=== PATIENT | male | born 1955 | race Caucasian/White ===

== ENCOUNTER 2016-12-18 16:32 | Emergency (ER) | payer OTHER ==
--- NOTE | 2016-12-18 17:45 | C.PDOC ---
History Of Present Illness Patient is a 61 y/o male, whose PMHx includes HTN, and diabetes, that presents to the ED for evaluation of generalized weakness, body aches, and feels bloated for the last 4-5 days. Pt states he has not had a bowel movement for the last 4- 5 days. Patient reports having similar symptoms in the past. Otherwise, denies any nausea, vomiting, abdominal pain, change in appetite, fever, chills, or any other associated symptoms at this time. Denies any sick contact. Time Seen by Provider: 12/18/16 17:31 Chief Complaint (Nursing): Abdominal Pain History Per: Patient History/Exam Limitations: no limitations Onset/Duration Of Symptoms: Days (5) Current Symptoms Are (Timing): Still Present Severity: None Pain Scale Rating Of: 0 Radiation Of Pain To:: None Quality Of Discomfort: Gas Associated Symptoms: Constipation. denies: Fever, Chills, Nausea, Vomiting, Diarrhea, Loss Of Appetite, Back Pain, Chest Pain, Urinary Symptoms Exacerbating Factors: None Alleviating Factors: None Recent travel outside of the [place]: No Additional History Per: Patient Past Medical History Reviewed: Historical Data, Nursing Documentation, Vital Signs Vital Signs: Last Vital Signs Temp 98.2 F 12/18/16 16:47 Pulse 68 12/18/16 18:55 Resp 18 12/18/16 18:55 BP 120/70 12/18/16 18:55 Pulse Ox 99 12/18/16 18:55 - Medical History PMH: Denies: Chronic Kidney Disease Surgical History: CABG Family History: States: Unknown Family Hx - Social History Hx Alcohol Use: No Hx Substance Use: No - Immunization History Hx Tetanus Toxoid Vaccination: No Hx Influenza Vaccination: No Hx Pneumococcal Vaccination: No Review Of Systems Except As Marked, All Systems Reviewed And Found Negative. Constitutional: Positive for: Weakness, Other (body aches). Negative for: Fever , Chills Cardiovascular: Negative for: Chest Pain, Palpitations Respiratory: Negative for: Cough, Shortness of Breath Gastrointestinal: Positive for: Constipation, Other (feels bloated). Negative for: Nausea, Vomiting, Abdominal Pain, Diarrhea Genitourinary: Negative for: Dysuria, Frequency, Hematuria Musculoskeletal: Negative for: Back Pain Physical Exam - Physical Exam Appears: Non-toxic, No Acute Distress Skin: Normal Color, Warm, Dry Head: Atraumatic, Normacephalic Eye(s): bilateral: Normal Inspection, EOMI Neck: Normal ROM, Supple Chest: Symmetrical, No Tenderness Cardiovascular: Rhythm Regular, No Murmur Respiratory: Normal Breath Sounds, No Rales, No Rhonchi, No Wheezing Gastrointestinal/Abdominal: Normal Exam, Soft, No Tenderness, No Guarding, No Rebound Extremity: Normal ROM, No Deformity Neurological/Psych: Oriented x3, Normal Speech, Normal Cognition ED Course And Treatment - Laboratory Results Result Diagrams: 12/18/16 17:56 12/18/16 17:56 Lab Interpretation: No Acute Changes O2 Sat by Pulse Oximetry: 98 (on RA) Pulse Ox Interpretation: Normal - Other Rad Obstructive series X-Ray: Viewed By Me, Read By Radiologist Interpretation: No evidence of obstruction. Large amount of stool in colon and rectum. Progress Note: Labs, obstructive series x-ray, ordered and reviewed. Patient treated with a Fleets enema. Reevaluation Time: 20:08 Reassessment Condition: Improved (Good results after the fleeets enema. Patient much more comfortable.) Disposition Counseled Patient/Family Regarding: Studies Performed, Diagnosis, Need For Followup - Disposition Referrals: Molly Weir MD [Medical Doctor] - Disposition: HOME/ ROUTINE Disposition Time: 20:09 Condition: IMPROVED Instructions: Constipation (ED), High Fiber Diet (ED) - Clinical Impression Clinical Impression: Constipation - Scribe Statement The provider has reviewed the documentation as recorded by the Scribe Gabino Weir All medical record entries made by the Scribe were at my direction and personally dictated by me. I have reviewed the chart and agree that the record accurately reflects my personal performance of the history, physical exam, medical decision making, and the department course for this patient. I have also personally directed, reviewed, and agree with the discharge instructions and disposition.
--- NOTE | 2016-12-18 17:49 | RAD ---
PROCEDURE: Radiographs of the chest and abdomen (obstructive series) HISTORY: Abdominal pain COMPARISON: No prior. TECHNIQUE: AP radiograph of the chest, with upright and supine radiographs of the abdomen. FINDINGS: CHEST: Lungs: Clear. Cardiovascular: Normal size heart. No pulmonary vascular congestion. Pleura: No pleural fluid. No pneumothorax. Other findings: None. ABDOMEN AND PELVIS: Bowel: There is large amount of stool in the colon and rectum. There is no evidence of bowel dilatation or obstruction. Free air: None. Bones: Unremarkable. Other findings: None. IMPRESSION: Constipation. No evidence of bowel obstruction. Clear lungs.
[2016-12-18 18:07] LABS: BASO # 0.1 K/uL (0.0-0.2); BASO % 0.6 % (0.0-2.0); EOS # 0.6 K/uL (0.0-0.7); EOS % 6.2 % (0.0-4.0); HEMOGLOBIN 14.6 g/dL (12.0-18.0); LYMPH # 3.3 K/uL (1.0-4.3); LYMPH % 36.5 % (20.0-40.0); MEAN CELL VOLUME 79.7 fL (80.0-94.0); MEAN CORPUSCULAR HGB CONC 32.7 g/dL (33.0-37.0); MEAN PLATELET VOLUME 7.7 fL (7.2-11.7); MONO # 0.7 K/uL (0.0-0.8); MONO % 8.2 % (0.0-10.0); NEUT # 4.3 K/uL (1.8-7.0); NEUT % 48.5 % (50.0-75.0); RBC 5.61 Mil/uL (4.40-5.90); RED CELL DISTRIBUTION WIDTH 13.2 % (11.5-14.5); WHITE BLOOD COUNT 8.9 K/uL (4.8-10.8)
[2016-12-18 18:10] LABS: ALBUMIN 4.3 g/dL (3.5-5.0)
[2016-12-18 18:13] LABS: ALB/GLOB RATIO 1.1 (1.0-2.1); AST/SGOT 21 U/L (17-59); BLOOD UREA NITROGEN 16 mg/dL (9-20); GFR AFRICAN-AMERICAN > 60; GFR NON-AFRICAN AMERICAN > 60
[2016-12-18 18:14] LABS: ALT/SGPT 28 U/L (21-72); CALCIUM 9.4 mg/dl (8.6-10.4); LIPASE 150 U/L (23-300)
[2016-12-18 18:21] LABS: SQUAMOUS EPITHIAL < 1 /hpf (0-5); URINE BILIRUBIN NEGATIVE (NEGATIVE); URINE BLOOD NEGATIVE (NEGATIVE); URINE CLARITY Clear (Clear); URINE COLOR Yellow (YELLOW); URINE GLUCOSE (UA) 3+ mg/dL (Normal); URINE LEUKOCYTE ESTERASE NEG Leu/uL (Negative); URINE NITRATE NEGATIVE (NEGATIVE); URINE PROTEIN NEGATIVE (NEGATIVE); URINE UROBILINOGEN NORMAL mg/dL (0.2-1.0)
[2016-12-18 18:55] VITALS: RESP 18
[2016-12-18 20:09] VITALS: O2SAT 98
[2016-12-18 20:13] VITALS: BP 127/73; PULSE 71; TEMP 97.6
== END 2016-12-18 20:30 | disposition home or self-care (01) ==
LOC: C.ER 16:32
DX: K59.00 Constipation, unspecified (principal)

== ENCOUNTER 2018-05-12 18:42 | Inpatient (IN) | payer SELFPAY ==
--- NOTE | 2018-05-12 21:19 | C.PDOC ---
History Of Present Illness 62 year old male with PMHx of diabetes and HLD presents to the ED complaining of cellulitis to the right groin for one week and flatulence. Denies any drainage, fever, chills, abdominal pain, shortness of breath, nausea, vomiting, diarrhea. Reports he has been taking Advil every 4 hours with minimal relief. Time Seen by Provider: 05/12/18 21:17 Chief Complaint (Nursing): Abnormal Skin Integrity History Per: Patient History/Exam Limitations: no limitations Onset/Duration Of Symptoms: Days Current Symptoms Are (Timing): Still Present Quality Of Symptoms: Painful, Swollen. denies: Draining Past Medical History Reviewed: Historical Data, Nursing Documentation, Vital Signs Vital Signs: Last Vital Signs Temp 99.9 F H 05/12/18 18:59 Pulse 109 H 05/12/18 18:59 Resp 18 05/12/18 18:59 BP 133/70 05/12/18 18:59 Pulse Ox 97 05/12/18 18:59 - Medical History PMH: Diabetes, Hyperlipidemia Denies: Chronic Kidney Disease Surgical History: CABG Family History: States: No Known Family Hx - Social History Hx Alcohol Use: No Hx Substance Use: No - Immunization History Hx Tetanus Toxoid Vaccination: No Hx Influenza Vaccination: No Hx Pneumococcal Vaccination: No Review Of Systems Constitutional: Negative for: Fever, Chills Cardiovascular: Negative for: Chest Pain Respiratory: Negative for: Shortness of Breath Gastrointestinal: Negative for: Nausea, Vomiting, Abdominal Pain, Diarrhea Genitourinary: Negative for: Dysuria Musculoskeletal: Negative for: Back Pain Skin: Positive for: Other (cellulitis to the right groin ) Physical Exam - Physical Exam Appears: Non-toxic, No Acute Distress Skin: Warm, Dry, No Rash Head: Normacephalic Eye(s): bilateral: Normal Inspection, PERRL, EOMI Nose: Normal Oral Mucosa: Moist Neck: Supple, Other (no meningeal signs) Chest: Symmetrical Cardiovascular: Rhythm Regular Respiratory: Normal Breath Sounds, No Rales, No Rhonchi, No Wheezing Gastrointestinal/Abdominal: Soft, No Tenderness Back: Normal Inspection, No CVA Tenderness Male Genital: Other ([id number] area of induration and cellulitis to the right groin/inguinal region no fluctuance or crepitus) Extremity: Normal ROM, No Tenderness Extremity: Bilateral: Atraumatic, Normal Color And Temperature, Normal ROM Pulses: Left Dorsalis Pedis: Normal, Right Dorsalis Pedis: Normal Neurological/Psych: Oriented x3, Normal Speech, Normal Cognition, No Cerebellar Signs, Normal Motor Gait: Steady ED Course And Treatment - Laboratory Results Result Diagrams: 05/14/18 05:47 05/14/18 05:47 O2 Sat by Pulse Oximetry: 97 (RA) Pulse Ox Interpretation: Normal Medical Decision Making Medical Decision Makin yr old male w/ hx of HTN, CAD on plavix p/w right groin pain. Cellulitic appearing R groin. No fluctuance. Induration noted. No crepitus. No penile pain or scrotal pain. No perineum rash or pain. Cellulitis region overlaying R groin large vessels. No distal or upgoing cellulitis noted. Plan - Bloodwork - Cleocin IVPB - Blood culture 1035 abx ordered appreciate consult w/ Dr. Rivera (IM): we are to call a code sepsis for internal medicine, and pt to be admitted to his service. Code sepsis called per admitting attnd Seen by Septic Team: fluids ordered Non hypotensive at this time. Pt notes that he is burping significantly more than normal and is requesting gas x. He denies any chest pain. 1107 Pt notes sob but no leg swelling, rales heard on exam fluids d/merari EK, Sinus tachy, no stemi no STEMI Per Dr. Veloz (CARDS) troponin elevated: Heparin started: ASA ordered. Pt denies any bloody stools or trauma / falls. likely gas pain as chest pain w/ NSTEMI. Dr. Weir- ICU bedside BIPAP ordered. to be admitted to his service Pt remains on bipap, improved respiratory status. He is agreeable to admission Disposition - Disposition Disposition: HOSPITALIZED Disposition Time: 22:35 Condition: CRITICAL - Clinical Impression Clinical Impression: Cellulitis, NSTEMI (non-ST elevated myocardial infarction) - Scribe Statement The provider has reviewed the documentation as recorded by the Felibertoibhortensia Rollins All medical record entries made by the Scribe were at my direction and personally dictated by me. I have reviewed the chart and agree that the record accurately reflects my personal performance of the history, physical exam, medical decision making, and the department course for this patient. I have also personally directed, reviewed, and agree with the discharge instructions and disposition.
[2018-05-12 21:59] LABS: BASO # 0.1 K/uL (0.0-0.2); BASO % 0.4 % (0.0-2.0); EOS # 0.1 K/uL (0.0-0.7); EOS % 0.4 % (0.0-4.0); HEMOGLOBIN 13.2 g/dL (12.0-18.0); LYMPH # 1.6 K/uL (1.0-4.3); LYMPH % 10.9 % (20.0-40.0); MEAN CELL VOLUME 80.6 fL (80.0-94.0); MEAN CORPUSCULAR HEMOGLOBIN 26.6 pg (27.0-31.0); MONO # 1.4 K/uL (0.0-0.8); MONO % 9.2 % (0.0-10.0); NEUT % 79.1 % (50.0-75.0); RBC 4.97 Mil/uL (4.40-5.90); RED CELL DISTRIBUTION WIDTH 13.1 % (11.5-14.5); WHITE BLOOD COUNT 15.1 K/uL (4.8-10.8)
[2018-05-12] MEDS ORDERED: Simethicone 80 mg Chewtab PO ONE (22:12)
[2018-05-12 22:18] LABS: ALB/GLOB RATIO 1.2 (1.0-2.1); ALBUMIN 4.1 g/dL (3.5-5.0); ALT/SGPT 26 U/L (21-72); AST/SGOT 34 U/L (17-59); BLOOD UREA NITROGEN 19 mg/dL (9-20); CALCIUM 9.3 mg/dl (8.6-10.4); GFR NON-AFRICAN AMERICAN > 60
[2018-05-12] MEDS ORDERED: Sodium Chloride 0.9% 1,000 ML IV ONE ×3 (22:27→22:31)
[2018-05-12] MEDS ORDERED: Lactated Ringer's 1,000 ML IV ONE (22:29)
[2018-05-12] MEDS ORDERED: Sodium Chloride 0.9% 500 ML IV ONE (22:31)
[2018-05-12] MEDS ORDERED: Albuterol-Ipratrop 3 mg / 0.5 (3 ml) UD INH STA (22:43)
[2018-05-12] MEDS ORDERED: Sodium Chloride 0.9% 2,000 ML ONE (22:43)
[2018-05-12] MEDS ORDERED: Heparin25000 units/250ml 1/2NS 25,000 UNITS/250 ML BAG IV ONE (22:47)
[2018-05-12] MEDS ORDERED: Vancomycin 1 GM 1 GM/250 ML BAG IVPB ONE (22:54)
[2018-05-12] MEDS ORDERED: Albuterol-Ipratrop 3 mg / 0.5 (3 ml) UD ONE (22:55)
[2018-05-12] MEDS ORDERED: NITROGLYCERIN 0.3 MG/HR TD STA (23:13)
[2018-05-12] MEDS ORDERED: cefTRIAXone IV 1 gm in Dextros 50 ML IVPB ONE (23:23)
[2018-05-12] MEDS ORDERED: Digoxin 500 mcg/2ml (0.5 mg/2ml) Inj IVP ONE (23:27)
[2018-05-12] MEDS ORDERED: Nitroglycerin 2% Ointment Foilpak UD TOP STA (23:27)
[2018-05-12] MEDS ORDERED: Verapamil 2 ML ONE ×3 (23:28→23:52)
[2018-05-12] MEDS ORDERED: Digoxin 500 mcg/2ml (0.5 mg/2ml) Inj ONE (23:30)
--- NOTE | 2018-05-12 23:42 | CP.PCM.CON ---
History of Present Illness - History of Present Illness History of Present Illness: 62 y/o female with pmx of DM, CAD presents to [facility] with c/o right inguinal swelling. Patient (+)fevers. After ~600 ml of IVF patient developed new onset SOB, tachycardia. Patient denies any chest pain. Pmx: DM, CAd Psug hx: PCI Social history: smoking, denies illicit drug use Review of Systems - Review of Systems Systems not reviewed;Unavailable: Unstable Vital Signs Past Patient History - Infectious Disease Hx of Infectious Diseases: None - Tetanus Immunizations Tetanus Immunization: Unknown - Past Medical History & Family History Past Medical History?: Yes - Past Social History Smoking Status: Light Smoker < 10 Cigarettes Daily - CARDIAC Hx Cardiac Disorders: Yes Hx Hypotension: Yes Other/Comment: cardiac bypass - PULMONARY Hx Respiratory Disorders: No - NEUROLOGICAL Hx Neurological Disorder: No - HEENT Hx HEENT Problems: Yes Other/Comment: left eye blurry - RENAL Hx Chronic Kidney Disease: No - ENDOCRINE/METABOLIC Hx Endocrine Disorders: Yes Hx Diabetes Mellitus Type 2: Yes - HEMATOLOGICAL/ONCOLOGICAL Hx Blood Disorders: No - INTEGUMENTARY Hx Dermatological Problems: No - MUSCULOSKELETAL/RHEUMATOLOGICAL Hx Musculoskeletal Disorders: No Hx Falls: No - GASTROINTESTINAL Hx Gastrointestinal Disorders: Yes Hx Constipation: Yes - GENITOURINARY/GYNECOLOGICAL Hx Genitourinary Disorders: No - PSYCHIATRIC Hx Substance Use: No - SURGICAL HISTORY Hx Coronary Artery Bypass Graft: Yes - ANESTHESIA Hx Anesthesia: No Hx Anesthesia Reactions: No Hx Malignant Hyperthermia: No Meds Allergies/Adverse Reactions: Allergies Allergy/AdvReac Type Severity Reaction Status Date / Time No Known Allergies Allergy Verified 05/12/18 19:02 - Medications Medications: Current Medications Aspirin (Aspirin Supp) 300 mg FL DAILY [facility] Aspirin (Aspirin Chewable) 81 mg PO DAILY [facility] Clopidogrel Bisulfate (Plavix) 300 mg PO STAT STA Stop: 05/12/18 23:35 Clopidogrel Bisulfate (Plavix) 75 mg PO DAILY [facility] Clindamycin Phosphate 600 mg/ (Sodium Chloride) 54 mls @ 100 mls/hr IVPB Q6H [facility]; Protocol Last Admin: 05/12/18 22:00 Dose: 100 mls/hr Vancomycin HCl 1 gm/ Sodium (Chloride) 250 mls @ 166.7 mls/hr IVPB STAT STA; Protocol Stop: 05/12/18 23:58 Heparin Sodium/Sodium Chloride (Heparin 03789 Units/250ml 1/2 Normal Saline) 25,000 units in 250 mls @ 7.2 mls/hr IV .Q24H PRN; Protocol PRN Reason: ADJUST RATE PER PROTOCOL Ceftriaxone Sodium 2 gm/ (Sodium Chloride) 100 mls @ 100 mls/hr IVPB DAILY JOSE R; Protocol Rosuvastatin Calcium (Crestor) 20 mg PO HS JOSE R Physical Exam - Head Exam Head Exam: ATRAUMATIC, NORMAL INSPECTION, NORMOCEPHALIC - Eye Exam Eye Exam: EOMI - ENT Exam ENT Exam: Mucous Membranes Dry - Neck Exam Additional comments: no JVD - Respiratory Exam Respiratory Exam: Accessory Muscle Use, Rales, Rhonchi - Cardiovascular Exam Cardiovascular Exam: REGULAR RHYTHM, +S1, +S2, Systolic Murmur - GI/Abdominal Exam GI & Abdominal Exam: Normal Bowel Sounds, Soft - Exam Additional comments: Right inguinal area (+)induration - Neurological Exam Neurological exam: Alert, CN II-XII Intact, Oriented x3 - Skin Skin Exam: Warm Results - Vital Signs Recent Vital Signs: Last Vital Signs Temp 99.9 F H 05/12/18 18:59 Pulse 109 H 05/12/18 18:59 Resp 18 05/12/18 18:59 BP 133/70 05/12/18 18:59 Pulse Ox 97 05/12/18 23:12 - Labs Result Diagrams: 05/12/18 21:54 05/13/18 01:57 Labs: Laboratory Results - last 24 hr 05/12/18 05/12/18 05/12/18 21:54 21:54 23:12 WBC 15.1 H D RBC 4.97 Hgb 13.2 Hct 40.1 MCV 80.6 MCH 26.6 L MCHC 33.0 RDW 13.1 Plt Count 305 MPV 8.0 Neut % (Auto) 79.1 H Lymph % (Auto) 10.9 L [place] % (Auto) 9.2 Eos % (Auto) 0.4 Baso % (Auto) 0.4 Neut # (Auto) 12.0 H Lymph # (Auto) 1.6 [place] # (Auto) 1.4 H Eos # (Auto) 0.1 Baso # (Auto) 0.1 Sodium 132 Potassium 4.1 Chloride 92 L Carbon Dioxide 22 Anion Gap 23 H BUN 19 Creatinine 0.6 L Est GFR ( Amer) > 60 Est GFR (Non-Af Amer) > 60 Random Glucose 439 H* D Lactic Acid 1.6 Calcium 9.3 Total Bilirubin 1.0 AST 34 ALT 26 Alkaline Phosphatase 90 Troponin I 1.2200 H* Total Protein 7.6 Albumin 4.1 Globulin 3.5 Albumin/Globulin Ratio 1.2 Assessment & Plan - Assessment and Plan (Free Text) Assessment: -New onset NSTEMI: with likely acute mitral valve regurgitation, and low EF, urgently placed on bi-pap, nitro and lasix pushed, Patient's JVD low, bedside echo revealed poor EF, (+)mitral regurg, consult Cardiology -NSTEMI: load with asa + plavix, verapmil (wheezing) and statin + IV heparin, urgent cardilogy input and formal echo -Hypoxic respiratory failure: continue bi-pap, h/o smoking, COPD, start solumedrol -Anion gap metabolic acidosis: check lactic and beta hydroxy butyrate -dka: start insulin ggt, continue BGM q1hrs -uncontrolled BGM: check HBa1c, ISS aspart, accucheck q4hrs -right groin swelling: suspect is abcess, obtain CT pelvis, surgery input, start vanco + ceftriaxone, serial lactic, source control with surgery input after CT chest -DVT ppx IV heparin -PUD ppx protonix -NPO -multiple diagnostic tests pending cc time 45 minutes - Date & Time Date: 05/13/18 Time: 00:07
[2018-05-12] MEDS ORDERED: Metoprolol 1 mg/ml Inj IVP SCH (23:45)
[2018-05-12] MEDS ORDERED: Nitroglycerin 50mg in D5W 50 MG/250 ML BOTTLE IV SCH (23:45)
[2018-05-12] MEDS ORDERED: Nitroglycerin 2% Ointment Foilpak UD TOP ONE ×2 (23:50→23:53)
[2018-05-12] MEDS: Magnesium Sulfate 1 gm in D5W 1 GM/100 ML BAG IVPB SCH (23:55)
[2018-05-12] MEDS ORDERED: Nitroglycerin 50mg in D5W 50 MG/250 ML BOTTLE IV ONE (23:59)
[2018-05-13 00:07] LABS: ABG ALLEN TEST POS; ARTERIAL BLOOD GAS PCO2 33 mm/Hg (35-45); ARTERIAL BLOOD GAS PH 7.28 (7.35-7.45); ARTERIAL BLOOD GAS PO2 159 mm/Hg (80-100); ARTERIAL BLOOD GAS TCO2 16.5 mmol/L (22-28)
--- NOTE | 2018-05-13 00:12 | PCM.SEPTIC ---
Sepsis Progress Note - Reassessment Type Date of Evaluation: 05/13/18 Time of Evaluation: 00:10 Reassessment Type: Non-invasive reassessment - Non Invasive Reassessment Were the most recent vital sign reviewed: Yes Vital Sign (Latest): Temp Pulse Resp BP Pulse Ox 99.9 F H 109 H 18 133/70 97 05/12/18 18:59 05/12/18 18:59 05/12/18 18:59 05/12/18 18:59 05/12/18 23:12 Cardiovascular: Yes: Tachycardia Respiratory: Yes: Accessory Muscle Use, Respiratory Distress Capillary Refill: Normal (Less than 2 sec) Skin: Normal Color, Dry - Invasive Reassessment (complete 2 of 4) Was a Central Venous Pressure Measurement obtained within 6 Hours after the presentation of septic shock: No Was a central venous oxygen measurement obtained within 6 hours after the presentation of septic shock: No Was a bedside cardiovascular ultrasound performed within 6 hours after the presentation of septic shock: Yes Type performed: Echocardiogram Was a passive leg raise performed or was a fluid challenge performed within 6 hrs of the initial fluid bolus: No
[2018-05-13] MEDS ORDERED: (Novolin R) Insulin Human Regular 100 units/ml vial IVP STA (00:21)
[2018-05-13] MEDS ORDERED: (Novolin R) Insulin Human Regular 100 units/ml vial ONE (00:21)
[2018-05-13] MEDS: Magnesium Sulfate 1 gm in D5W 1 GM/100 ML BAG IVPB SCH (00:23)
[2018-05-13] MEDS: Heparin25000 units/250ml 1/2NS 25,000 UNITS/250 ML BAG IV PRN (00:23)
[2018-05-13] MEDS ORDERED: Magnesium Sulfate 1 gm in D5W 1 GM/100 ML BAG IVPB ONE (00:26)
--- NOTE | 2018-05-13 00:49 | CP.PCM.HP ---
<Rekha Watters - Last Filed: 05/13/18 00:51> History of Present Illness - History of Present Illness History of Present Illness: PGY-1 H&P for Rivera[employer] service CC: groin pain HPI: Patient is a 62 yo male w/ PMH CABG, DM, and hyperlipidemia presents to emergency department for one weeks worth of right groin pain. Patient states he has been taken Advil every four hours with no relief. Patient states he has not been taking medications for his diabetes and hyperlipidemia but gave no reason why he stopped other than the pain in his leg. Patient states this has happened in the past on the left groin. Patient describes the pain as a burning pain, constant, and non-radiating. Patient states that he has felt feverish with cough nonproductive but did not check his temperature. During evaluation patient started become more tachypneic and had an episode of vomiting. Patient was coughing during the interview so much that the ED attending started a breathing treatment. Patient became very diaphoretic during the interview requiring ICU consult because there was a concern for AR. Patient started to complain of feeling short of breath, impending doom, continuous cough, feeling nauseous, and very sweaty. Patient climbed off stretcher although told not to and laid on the floor. Patient was encouraged to get back on stretcher but did not until he was assisted. Patient was started on bipap because there of concern of pulmonary edema. Patient admits to cough, fevers, chills, chest discomfort shortness of breath, n/v, lightheadedness, and flatulence. Patient denies constipation/diarrhea, headaches, radiating pain, and dysuria. PMH- CABG, DM, HLD PSH- CABG FH- DM (dad and brother), HTN Social- 8-10 cigs/day, denies alcohol and drug use Meds- Lopressor 50mg po daily, Glyburide/Metformin 1 tab po daily, Enalapril 10mg po daily, Plavix 75mg po daily, Lipitor 10mg po daily, Aspirin 81mg po daily All- NKDA PMD- Dr. Weir Code- Full code Present on Admission - Present on Admission Any Indicators Present on Admission: Yes Review of Systems - Review of Systems Review of Systems: 12 point ROS obtained and noted as in HPI Past Patient History - Infectious Disease Hx of Infectious Diseases: None - Tetanus Immunizations Tetanus Immunization: Unknown - Past Medical History & Family History Past Medical History?: Yes - Past Social History Smoking Status: Light Smoker < 10 Cigarettes Daily - CARDIAC Hx Cardiac Disorders: Yes Hx Hypotension: Yes Other/Comment: cardiac bypass - PULMONARY Hx Respiratory Disorders: No - NEUROLOGICAL Hx Neurological Disorder: No - HEENT Hx HEENT Problems: Yes Other/Comment: left eye blurry - RENAL Hx Chronic Kidney Disease: No - ENDOCRINE/METABOLIC Hx Endocrine Disorders: Yes Hx Diabetes Mellitus Type 2: Yes - HEMATOLOGICAL/ONCOLOGICAL Hx Blood Disorders: No - INTEGUMENTARY Hx Dermatological Problems: No - MUSCULOSKELETAL/RHEUMATOLOGICAL Hx Musculoskeletal Disorders: No Hx Falls: No - GASTROINTESTINAL Hx Gastrointestinal Disorders: Yes Hx Constipation: Yes - GENITOURINARY/GYNECOLOGICAL Hx Genitourinary Disorders: No - PSYCHIATRIC Hx Substance Use: No - SURGICAL HISTORY Hx Coronary Artery Bypass Graft: Yes - ANESTHESIA Hx Anesthesia: No Hx Anesthesia Reactions: No Hx Malignant Hyperthermia: No Meds Allergies/Adverse Reactions: Allergies Allergy/AdvReac Type Severity Reaction Status Date / Time No Known Allergies Allergy Verified 05/12/18 19:02 Physical Exam - Constitutional Appears: In Acute Distress - Head Exam Head Exam: NORMAL INSPECTION, NORMOCEPHALIC - Eye Exam Eye Exam: EOMI, Normal appearance. absent: Nystagmus, Scleral icterus - ENT Exam ENT Exam: Mucous Membranes Dry - Respiratory Exam Respiratory Exam: Rales, Wheezes, Respiratory Distress. absent: Chest Wall Tenderness, Clear to Auscultation Bilateral, Rhonchi, NORMAL BREATHING PATTERN - Cardiovascular Exam Cardiovascular Exam: Tachycardia, +S1, +S2. absent: Systolic Murmur - GI/Abdominal Exam GI & Abdominal Exam: Normal Bowel Sounds, Soft. absent: Distended, Firm, Guarding, Tenderness - Exam Additional comments: Cellulitis near groin region with skin peeling off No oozing draining or pus noted; Of note it did seem fluctuant - Extremities Exam Extremities exam: Positive for: normal inspection. Negative for: calf tenderness, pedal edema - Neurological Exam Neurological exam: Alert, Oriented x3 - Psychiatric Exam Psychiatric exam: Anxious - Skin Skin Exam: Dry, Intact, Normal Color Results - Vital Signs Recent Vital Signs: Last Vital Signs Temp 99.9 F H 05/12/18 18:59 Pulse 106 H 05/13/18 00:01 Resp 29 H 05/13/18 00:01 BP 130/64 05/13/18 00:01 Pulse Ox 98 05/13/18 00:01 - Labs Result Diagrams: 05/12/18 21:54 05/12/18 21:54 Labs: Laboratory Results - last 24 hr 05/12/18 05/12/18 05/12/18 14:27 21:54 21:54 WBC 15.1 H D RBC 4.97 Hgb 13.2 Hct 40.1 MCV 80.6 MCH 26.6 L MCHC 33.0 RDW 13.1 Plt Count 305 MPV 8.0 Neut % (Auto) 79.1 H Lymph % (Auto) 10.9 L [place] % (Auto) 9.2 Eos % (Auto) 0.4 Baso % (Auto) 0.4 Neut # (Auto) 12.0 H Lymph # (Auto) 1.6 [place] # (Auto) 1.4 H Eos # (Auto) 0.1 Baso # (Auto) 0.1 Puncture Site Rr pCO2 33 L pO2 159 H HCO3 17.0 L ABG pH 7.28 L ABG Total CO2 16.5 L ABG O2 Saturation 95.0 ABG Base Excess -10.2 L Karthik Test Pos ABG Potassium 3.2 L A-a O2 Difference 156.0 Respiratory Index 1.0 Sodium 133.0 132 Chloride 96.0 L 92 L Glucose 590 H* Lactate 2.9 H Vent Mode Bipap FiO2 50.0 Inspiratory BiPAP 18 Expiratory BiPAP 10 Crit Value Called To Denisse call rn Crit Value Called By Keya paving block cutter Crit Value Read Back Y Blood Gas Notified Time 6 Potassium 4.1 Carbon Dioxide 22 Anion Gap 23 H BUN 19 Creatinine 0.6 L Est GFR ( Amer) > 60 Est GFR (Non-Af Amer) > 60 POC Glucose (mg/dL) Random Glucose 439 H* D Lactic Acid Calcium 9.3 Total Bilirubin 1.0 AST 34 ALT 26 Alkaline Phosphatase 90 Troponin I 1.2200 H* Total Protein 7.6 Albumin 4.1 Globulin 3.5 Albumin/Globulin Ratio 1.2 Arterial Blood Potassium 3.2 L 05/12/18 05/13/18 23:12 00:20 WBC RBC Hgb Hct MCV MCH MCHC RDW Plt Count MPV Neut % (Auto) Lymph % (Auto) [place] % (Auto) Eos % (Auto) Baso % (Auto) Neut # (Auto) Lymph # (Auto) [place] # (Auto) Eos # (Auto) Baso # (Auto) Puncture Site pCO2 pO2 HCO3 ABG pH ABG Total CO2 ABG O2 Saturation ABG Base Excess Karthik Test ABG Potassium A-a O2 Difference Respiratory Index Sodium Chloride Glucose Lactate Vent Mode FiO2 Inspiratory BiPAP Expiratory BiPAP Crit Value Called To Crit Value Called By Crit Value Read Back Blood Gas Notified Time Potassium Carbon Dioxide Anion Gap BUN Creatinine Est GFR ( Amer) Est GFR (Non-Af Amer) POC Glucose (mg/dL) 489 H* Random Glucose Lactic Acid 1.6 Calcium Total Bilirubin AST ALT Alkaline Phosphatase Troponin I Total Protein Albumin Globulin Albumin/Globulin Ratio Arterial Blood Potassium Assessment & Plan - Assessment and Plan (Free Text) Assessment: Patient is a 62 yo male with PMH of CABG, DM and HLD presents for 1 week of groin pain. Patient began to decompensate during interview and transferred to ICU for concerns of NSTEMI with elevated troponins. Plan: Sepsis Likely 2/2 to Cellulitis; Lactate 2.9; ABG shows non-anion gap metabolic acidosis Patient was started on Bipap when he began to decompensate Clindamycin and Vancomycin intitally was started but switched to Clinda/C eftriaxone Fluid bolus was given and maintenance fluids but was stopped due to patient becoming increasingly short of breath Will require imaging of cellulitis once patient more stable; Consider surgery consult for I&D BCX pending; Wound Cx pending Febrile, Tachycardia, Leukocytosis noted on admission Shortness of Breath EKG- NSTEMI with sinus tachycardia Cxray- pulmonary edema Troponin- 1.2 BHAVIN x 3 pending Cardiology Consulted- Dr. Veloz- NSTEMI ICU Consulted- Dr. Weir- transfer to ICU with recs below Aspirin 300mg rectally; Aspirin 81mg po daily Plavix x 1 300mg dose; Plavix 75 mg po daily Patient was put on Bipap; Given 1 x dose of lasix 40mg IVP Heparin loading dose of 3600 units; Heparin drip with transfer to ICU; Nitrodrip in ICU; Nitropaste was given and stopped for afterload and preload reduction Digoxin 0.5mg IVP once; Verpamil 2.5mg IVP x 1 for elevated heart rate; Lopressor 5mg IVP q6h Crestor 20mg po hs kinza BNP pending DM - uncontrolled Patient noncompliance with home meds A1C pending Fluids administered but stopped; Novolin 10 units ISS sc q4h PPX DVT ppx: Heparin 5000 units sc q8h GI ppx: Protonix 40mg po NPO diet <Gino Rivera - Last Filed: 05/13/18 06:15> Results - Vital Signs Recent Vital Signs: Last Vital Signs Temp 99.0 F 05/13/18 02:21 Pulse 100 H 05/13/18 06:10 Resp 18 05/13/18 02:21 BP 125/70 05/13/18 02:21 Pulse Ox 99 05/13/18 02:21 - Labs Result Diagrams: 05/12/18 21:54 05/13/18 01:57 Labs: Laboratory Results - last 24 hr 05/12/18 05/12/18 05/12/18 14:27 21:54 21:54 WBC 15.1 H D RBC 4.97 Hgb 13.2 Hct 40.1 MCV 80.6 MCH 26.6 L MCHC 33.0 RDW 13.1 Plt Count 305 MPV 8.0 Neut % (Auto) 79.1 H Lymph % (Auto) 10.9 L [place] % (Auto) 9.2 Eos % (Auto) 0.4 Baso % (Auto) 0.4 Neut # (Auto) 12.0 H Lymph # (Auto) 1.6 [place] # (Auto) 1.4 H Eos # (Auto) 0.1 Baso # (Auto) 0.1 PT INR APTT Puncture Site Rr pCO2 33 L pO2 159 H HCO3 17.0 L ABG pH 7.28 L ABG Total CO2 16.5 L ABG O2 Saturation 95.0 ABG Base Excess -10.2 L Karthik Test Pos ABG Potassium 3.2 L A-a O2 Difference 156.0 Respiratory Index 1.0 Sodium 133.0 132 Chloride 96.0 L 92 L Glucose 590 H* Lactate 2.9 H Vent Mode Bipap FiO2 50.0 Inspiratory BiPAP 18 Expiratory BiPAP 10 Crit Value Called To Denisse call rn Crit Value Called By Keya paving block cutter Crit Value Read Back Y Blood Gas Notified Time 6 Potassium 4.1 Carbon Dioxide 22 Anion Gap 23 H BUN 19 Creatinine 0.6 L Est GFR ( Amer) > 60 Est GFR (Non-Af Amer) > 60 POC Glucose (mg/dL) Random Glucose 439 H* D Lactic Acid Calcium 9.3 Phosphorus Magnesium Total Bilirubin 1.0 AST 34 ALT 26 Alkaline Phosphatase 90 Total Creatine Kinase CK-MB (Mass) Troponin I 1.2200 H* NT-Pro-B Natriuret Pep Total Protein 7.6 Albumin 4.1 Globulin 3.5 Albumin/Globulin Ratio 1.2 TSH 3rd Generation Arterial Blood Potassium 3.2 L B-Hydroxybutyrate 05/12/18 05/13/18 05/13/18 23:12 00:20 00:44 WBC RBC Hgb Hct MCV MCH MCHC RDW Plt Count MPV Neut % (Auto) Lymph % (Auto) [place] % (Auto) Eos % (Auto) Baso % (Auto) Neut # (Auto) Lymph # (Auto) [place] # (Auto) Eos # (Auto) Baso # (Auto) PT INR APTT Puncture Site pCO2 pO2 HCO3 ABG pH ABG Total CO2 ABG O2 Saturation ABG Base Excess Karthik Test ABG Potassium A-a O2 Difference Respiratory Index Sodium Chloride Glucose Lactate Vent Mode FiO2 Inspiratory BiPAP Expiratory BiPAP Crit Value Called To Crit Value Called By Crit Value Read Back Blood Gas Notified Time Potassium Carbon Dioxide Anion Gap BUN Creatinine Est GFR ( Amer) Est GFR (Non-Af Amer) POC Glucose (mg/dL) 489 H* Random Glucose Lactic Acid 1.6 Calcium Phosphorus Magnesium Total Bilirubin AST ALT Alkaline Phosphatase Total Creatine Kinase 151 CK-MB (Mass) 2.76 Troponin I 1.1200 H* NT-Pro-B Natriuret Pep 1910 H Total Protein Albumin Globulin Albumin/Globulin Ratio TSH 3rd Generation 0.76 Arterial Blood Potassium B-Hydroxybutyrate 05/13/18 05/13/18 05/13/18 01:57 01:58 02:18 WBC RBC Hgb Hct MCV MCH MCHC RDW Plt Count MPV Neut % (Auto) Lymph % (Auto) [place] % (Auto) Eos % (Auto) Baso % (Auto) Neut # (Auto) Lymph # (Auto) [place] # (Auto) Eos # (Auto) Baso # (Auto) PT 12.8 H INR 1.2 APTT 30 Puncture Site pCO2 pO2 HCO3 ABG pH ABG Total CO2 ABG O2 Saturation ABG Base Excess Karthik Test ABG Potassium A-a O2 Difference Respiratory Index Sodium 133 Chloride 98 Glucose Lactate Vent Mode FiO2 Inspiratory BiPAP Expiratory BiPAP Crit Value Called To Crit Value Called By Crit Value Read Back Blood Gas Notified Time Potassium 3.4 L Carbon Dioxide 20 L Anion Gap 18 BUN 17 Creatinine 0.7 L Est GFR ( Amer) > 60 Est GFR (Non-Af Amer) > 60 POC Glucose (mg/dL) 333 H Random Glucose 412 H* Lactic Acid Calcium 8.0 L Phosphorus 2.7 Magnesium 2.6 H Total Bilirubin 0.6 AST 47 ALT 28 Alkaline Phosphatase 100 Total Creatine Kinase CK-MB (Mass) Troponin I NT-Pro-B Natriuret Pep Total Protein 6.7 Albumin 3.7 Globulin 3.0 Albumin/Globulin Ratio 1.2 TSH 3rd Generation Arterial Blood Potassium B-Hydroxybutyrate 3.34 H 05/13/18 05/13/18 02:37 04:55 WBC RBC Hgb Hct MCV MCH MCHC RDW Plt Count MPV Neut % (Auto) Lymph % (Auto) [place] % (Auto) Eos % (Auto) Baso % (Auto) Neut # (Auto) Lymph # (Auto) [place] # (Auto) Eos # (Auto) Baso # (Auto) PT INR APTT Puncture Site pCO2 pO2 HCO3 ABG pH ABG Total CO2 ABG O2 Saturation ABG Base Excess Karthik Test ABG Potassium A-a O2 Difference Respiratory Index Sodium Chloride Glucose Lactate Vent Mode FiO2 Inspiratory BiPAP Expiratory BiPAP Crit Value Called To Crit Value Called By Crit Value Read Back Blood Gas Notified Time Potassium Carbon Dioxide Anion Gap BUN Creatinine Est GFR ( Amer) Est GFR (Non-Af Amer) POC Glucose (mg/dL) 142 H Random Glucose Lactic Acid 1.6 Calcium Phosphorus Magnesium Total Bilirubin AST ALT Alkaline Phosphatase Total Creatine Kinase CK-MB (Mass) Troponin I NT-Pro-B Natriuret Pep Total Protein Albumin Globulin Albumin/Globulin Ratio TSH 3rd Generation Arterial Blood Potassium B-Hydroxybutyrate Assessment & Plan - Date & Time Date: 05/13/18 (I have seen and examined the patient. I agree with the findings and plan of care as documented by Dr. Watters. Patient with sepsis. Uncontrolled diabetes. Rocephin and Clinda. NSTEMI. Cardio Consult. History of CHF. IVF initially given but stopped due to heart failure with fluid retention. Contine Plavix. Aspirin. ROMIx3 with EKG. Admit to ICU for close monitoring and further management. ) Time: 06:12 Attending/Attestation - Attestation I have personally seen and examined this patient.: Yes I have fully participated in the care of the patient.: Yes I have reviewed all pertinent clinical information: Yes
[2018-05-13 01:13] LABS: CK-MB 2.76 ng/mL (0.0-3.38)
[2018-05-13 01:15] VITALS: PULSE 143
[2018-05-13 01:35] LABS: TROPONIN I 1.12 ng/mL (0.00-0.120)
[2018-05-13] MEDS ORDERED: (Novolog) Insulin Aspart, Recombinant 100 u/ml 10 ml vial SC SCH (01:45)
[2018-05-13 02:05] LABS: INR 1.2; PROTHROMBIN TIME 12.8 SECONDS (9.7-12.2)
[2018-05-13 02:19] LABS: ALB/GLOB RATIO 1.2 (1.0-2.1); ALBUMIN 3.7 g/dL (3.5-5.0); ALT/SGPT 28 U/L (21-72); AST/SGOT 47 U/L (17-59); BLOOD UREA NITROGEN 17 mg/dL (9-20); GFR NON-AFRICAN AMERICAN > 60
[2018-05-13] MEDS ORDERED: Insulin Human Regular 100 UNIT in Sodium Chloride 0.9% 99 ML SC SCH (03:00)
[2018-05-13] MEDS ORDERED: Insulin Human Regular 100 UNIT in Sodium Chloride 0.9% 99 ML IV SCH (03:00)
[2018-05-13 08:17] LABS: BASO % 0.1 % (0.0-2.0); HEMOGLOBIN 11.3 g/dL (12.0-18.0); MEAN CELL VOLUME 79.4 fL (80.0-94.0); MEAN CORPUSCULAR HEMOGLOBIN 26.5 pg (27.0-31.0); MEAN CORPUSCULAR HGB CONC 33.4 g/dL (33.0-37.0); MEAN PLATELET VOLUME 7.9 fL (7.2-11.7); MONO # 1.7 K/uL (0.0-0.8); MONO % 10.2 % (0.0-10.0); NEUT # 13.1 K/uL (1.8-7.0); NEUT % 77.7 % (50.0-75.0); RBC 4.27 Mil/uL (4.40-5.90); RED CELL DISTRIBUTION WIDTH 13.2 % (11.5-14.5); URINE BILIRUBIN NEGATIVE (NEGATIVE); URINE BLOOD 1+ (NEGATIVE); URINE CLARITY Clear (Clear); URINE COLOR Straw (YELLOW); URINE GLUCOSE (UA) 3+ mg/dL (Normal); URINE LEUKOCYTE ESTERASE NEG Leu/uL (Negative); URINE PROTEIN NEGATIVE (NEGATIVE); URINE UROBILINOGEN NORMAL mg/dL (0.2-1.0); WHITE BLOOD COUNT 16.8 K/uL (4.8-10.8)
[2018-05-13 08:33] LABS: ALBUMIN 3.1 g/dL (3.5-5.0); ALT/SGPT 29 U/L (21-72); AST/SGOT 73 U/L (17-59); BLOOD UREA NITROGEN 19 mg/dL (9-20); CALCIUM 8.1 mg/dl (8.6-10.4); GFR NON-AFRICAN AMERICAN > 60
[2018-05-13 08:39] LABS: CK-MB 22.5 ng/mL (0.0-3.38)
[2018-05-13 08:46] LABS: BARBITURATES, UR NEGATIVE (NEGATIVE); BENZODIAZEPINES, UR NEGATIVE (NEGATIVE); OPIATES, UR NEGATIVE (NEGATIVE); PHENCYCLIDINE, UR NEGATIVE (NEGATIVE)
--- NOTE | 2018-05-13 09:50 | CP.PCM.PN ---
Subjective - Date & Time of Evaluation Date of Evaluation: 05/13/18 Time of Evaluation: 09:50 - Subjective Subjective: Patient came for groin pain and infection On BIPAP this morning. His shortness of breath is better,patient states that he was having on and off epigastric pain going to his chest.He thought its due to gas.Denies nausea,no vomting no sob,Denies sob on exercion Objective - Vital Signs/Intake and Output Vital Signs (last 24 hours): Temp Pulse Resp BP Pulse Ox 99.0 F 85 21 125/70 100 05/13/18 02:21 05/13/18 07:42 05/13/18 03:30 05/13/18 02:21 05/13/18 03:30 Intake and Output: 05/13/18 05/13/18 06:59 18:59 Intake Total 6.25 Balance 6.25 - Medications Medications: Current Medications Aspirin (Aspirin Chewable) 81 mg PO DAILY [facility] Clopidogrel Bisulfate (Plavix) 75 mg PO DAILY [facility] Clindamycin Phosphate 600 mg/ (Sodium Chloride) 54 mls @ 100 mls/hr IVPB Q6H JOSE R; Protocol Last Admin: 05/13/18 04:56 Dose: 100 mls/hr Heparin Sodium/Sodium Chloride (Heparin 23260 Units/250ml 1/2 Normal Saline) 25,000 units in 250 mls @ 7.2 mls/hr IV .Q24H PRN; Protocol PRN Reason: ADJUST RATE PER PROTOCOL Last Admin: 05/13/18 00:23 Dose: 12 units/kg/hr, 7.2 mls/hr Ceftriaxone Sodium 2 gm/ (Sodium Chloride) 100 mls @ 100 mls/hr IVPB DAILY [facility]; Protocol Nitroglycerin/Dextrose (Nitroglycerin 50 Mg/250 Ml D5w) 50 mg in 250 mls @ 1.5 mls/hr IV .Q24H JOSE R; Protocol Last Admin: 05/13/18 00:01 Dose: 5 mcg/min, 1.5 mls/hr Insulin Human Regular 100 unit (/ Sodium Chloride) 100 mls @ 6 mls/hr IV .Q12N18D JOSE R; Protocol Last Titration: 05/13/18 04:59 Dose: 0 unit/kg/hr, 0 mls/hr Insulin Human Regular (Novolin R) 0 unit SC ACHS JOSE R; Protocol Metoprolol Tartrate (Lopressor) 25 mg PO BID [facility] Pantoprazole Sodium (Protonix Inj) 40 mg IVP Q12H [facility] Last Admin: 05/13/18 01:15 Dose: 40 mg Rosuvastatin Calcium (Crestor) 20 mg PO HS [facility] Last Admin: 05/13/18 01:40 Dose: 20 mg - Labs Labs: 05/13/18 08:10 PT 12.8 SECONDS (9.7-12.2) H 05/13/18 01:58 INR 1.2 05/13/18 01:58 APTT 33 SECONDS (21-34) 05/13/18 08:10 - Constitutional Appears: No Acute Distress - Head Exam Head Exam: NORMAL INSPECTION - Eye Exam Eye Exam: Normal appearance - ENT Exam ENT Exam: Mucous Membranes Moist - Neck Exam Neck Exam: Full ROM - Respiratory Exam Respiratory Exam: Rales (bilateral rales lower to mid chest). absent: NORMAL BREATHING PATTERN - Cardiovascular Exam Cardiovascular Exam: REGULAR RHYTHM - GI/Abdominal Exam GI & Abdominal Exam: Soft, Normal Bowel Sounds - Extremities Exam Extremities Exam: Full ROM - Back Exam Back Exam: NORMAL INSPECTION - Neurological Exam Neurological Exam: Awake, Oriented x3 - Psychiatric Exam Psychiatric exam: Normal Mood - Skin Skin Exam: Dry, Erythema (right groin abscess,lynphadenitis and cellulitis) Assessment and Plan - Assessment and Plan (Free Text) Plan: 1.NSTMI,pulmonary edema History of CABG Last night EKG shows ST depresion in lateral leads,this morning troponin went up to 11. 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 Sepsis and Groin infection/abscess and lymphadenitis Dr Packer's recommendation appreciated Conitnue zosyn and vancomycin Surgery consult for I&D Patient is sob with pulmonary edema.Hold fluids BCX pending; Wound Cx pending 3. DKA and DM - uncontrolled DM Patient noncompliance with home meds A1C 12 DKA resolved,start on insulin as per DR Mcmahan consult Dr Mcmahan PPX DVT ppx: Heparin GI ppx: Protonix 40mg po
[2018-05-13] MEDS ORDERED: cefTRIAXone 2 GM in Sodium Chloride 0.9% 100 ML IVPB SCH (10:00)
[2018-05-13] MEDS ORDERED: Potassium Chloride 20 mEq ER Tab PO ONE (10:27)
[2018-05-13] MEDS ORDERED: (Novolin R) Insulin Human Regular 100 units/ml vial SC SCH (11:30)
--- NOTE | 2018-05-13 11:46 | CT ---
Date of service: 05/13/2018 PROCEDURE: CT Abdomen and Pelvis without intravenous contrast HISTORY: evaluate right inguinal area COMPARISON: None. TECHNIQUE: Without contrast.. Contrast dose: 0 Radiation dose: Total exam DLP = 212.89 mGy-cm. This CT exam was performed using one or more of the following dose reduction techniques: Automated exposure control, adjustment of the mA and/or kV according to patient size, and/or use of iterative reconstruction technique. FINDINGS: LOWER THORAX: Small bilateral pleural effusion. Mild alveolar opacity in the posterior aspect both lower lobes which may reflect pneumonia or subsegmental atelectasis. LIVER: Unremarkable. No gross lesion or ductal dilatation. GALLBLADDER AND BILE DUCTS: Unremarkable. PANCREAS: Unremarkable. No gross lesion or ductal dilatation. SPLEEN: Unremarkable. ADRENALS: Unremarkable. No mass. KIDNEYS AND URETERS: Nonspecific 10 mm right upper pole renal cortical mass, low-density, likely cyst. Too small to characterize. No other renal mass. No renal calculus or hydronephrosis. VASCULATURE: Unremarkable. No aortic aneurysm. There is atherosclerotic calcification of the abdominal aorta. BOWEL: Unremarkable. No obstruction. No gross mural thickening. APPENDIX: Unremarkable. Normal appendix. PERITONEUM: No ascites. No pneumoperitoneum. Please note that there is no evidence of inguinal hernia. In the right inguinal region, there is evidence of cutaneous thickening and stranding in the subcutaneous fat suggestive of cellulitis. There are also some ill-defined rounded low-density structures, somewhat confluent, possibly lymph nodes. Atypical in appearance. Also, the possibility of small abscesses should be considered. LYMPH NODES: No retroperitoneal or pelvic lymphadenopathy. BLADDER: Unremarkable. REPRODUCTIVE: Normal prostate BONES: No acute fracture. OTHER FINDINGS: None. IMPRESSION: No evidence of inguinal hernia. Right inguinal cellulitis and vaguely confluent ill-defined subcutaneous masses which may represent lymph nodes or small abscesses. Very small bilateral pleural effusion with minimal bilateral lower lobe alveolar opacity representing possibly pneumonia or subsegmental atelectasis. No other acute abnormality. The preliminary findings for this examination were reported by [facility] Radiology at 4:22 a.m. on 05/13/2018.. There is concurrence of this report with the preliminary findings.
[2018-05-13] MEDS ORDERED: (Lantus) Insulin Glargine, Recombinant SC ONE (12:00)
--- NOTE | 2018-05-13 12:49 | CP.PCM.CON ---
History of Present Illness - History of Present Illness History of Present Illness: 62 yo male rain h/o CAD, s/p CABG 13 years ago at [facility] [place]; T2D;HTN;HLD; current smoker, presented with right groin pain. States started as small wound, became more swollen, red and painful. Denies chest pain, palpitations, diaphoresis, d izziness, fever or chills. Admits to baseline dyspnea with 2 blocks. Used to follow with cardio, but stopped bc lack of insurance. Cardiology evaluation called bc NSTEMI Smokes 8-10 cigs per day Review of Systems - Review of Systems Review of Systems: all others are negative except HPI Past Patient History - Infectious Disease Hx of Infectious Diseases: None - Tetanus Immunizations Tetanus Immunization: Unknown - Past Medical History & Family History Past Medical History?: Yes - Past Social History Smoking Status: Light Smoker < 10 Cigarettes Daily - CARDIAC Hx Cardiac Disorders: Yes Hx Hypotension: Yes Other/Comment: cardiac bypass - PULMONARY Hx Respiratory Disorders: No - NEUROLOGICAL Hx Neurological Disorder: No - HEENT Hx HEENT Problems: Yes Other/Comment: left eye blurry - RENAL Hx Chronic Kidney Disease: No - ENDOCRINE/METABOLIC Hx Endocrine Disorders: Yes Hx Diabetes Mellitus Type 2: Yes - HEMATOLOGICAL/ONCOLOGICAL Hx Blood Disorders: No - INTEGUMENTARY Hx Dermatological Problems: No - MUSCULOSKELETAL/RHEUMATOLOGICAL Hx Falls: No - GASTROINTESTINAL Hx Gastrointestinal Disorders: Yes Hx Constipation: Yes - GENITOURINARY/GYNECOLOGICAL Hx Genitourinary Disorders: No - PSYCHIATRIC Hx Substance Use: No - SURGICAL HISTORY Hx Coronary Artery Bypass Graft: Yes - ANESTHESIA Hx Anesthesia: No Hx Anesthesia Reactions: No Hx Malignant Hyperthermia: No Meds Allergies/Adverse Reactions: Allergies Allergy/AdvReac Type Severity Reaction Status Date / Time No Known Allergies Allergy Verified 05/12/18 19:02 - Medications Medications: Current Medications Acetaminophen (Tylenol 325mg Tab) 650 mg PO Q6 PRN PRN Reason: Pain, Mild (1-3) Aspirin (Aspirin Chewable) 81 mg PO DAILY [facility] Last Admin: 05/13/18 10:03 Dose: 81 mg Clopidogrel Bisulfate (Plavix) 75 mg PO DAILY [facility] Last Admin: 05/13/18 10:03 Dose: 75 mg Clindamycin Phosphate 600 mg/ (Sodium Chloride) 54 mls @ 100 mls/hr IVPB Q6H [facility]; Protocol Last Admin: 05/13/18 09:58 Dose: 100 mls/hr Heparin Sodium/Sodium Chloride (Heparin 20911 Units/250ml 1/2 Normal Saline) 25,000 units in 250 mls @ 7.2 mls/hr IV .Q24H PRN; Protocol PRN Reason: ADJUST RATE PER PROTOCOL Last Titration: 05/13/18 09:52 Dose: 16.1 units/kg/hr, 9.66 mls/hr Ceftriaxone Sodium 2 gm/ (Sodium Chloride) 100 mls @ 100 mls/hr IVPB DAILY [facility]; Protocol Last Admin: 05/13/18 10:06 Dose: 100 mls/hr Nitroglycerin/Dextrose (Nitroglycerin 50 Mg/250 Ml D5w) 50 mg in 250 mls @ 1.5 mls/hr IV .Q24H [facility]; Protocol Last Titration: 05/13/18 09:30 Dose: 0 mcg/min, 0 mls/hr Insulin Glargine (Lantus) 10 unit SC [facility] Insulin Human Regular (Novolin R) 0 unit SC [facility]; Protocol Last Admin: 05/13/18 11:57 Dose: 3 units Metoprolol Tartrate (Lopressor) 25 mg PO BID [facility] Last Admin: 05/13/18 10:03 Dose: 25 mg Oxycodone/Acetaminophen (Percocet 5/325 Mg Tab) 1 tab PO Q6H PRN PRN Reason: Pain, moderate (4-7) Stop: 05/16/18 12:03 Pantoprazole Sodium (Protonix Inj) 40 mg IVP Q12H [facility] Last Admin: 05/13/18 11:40 Dose: 40 mg Rosuvastatin Calcium (Crestor) 20 mg PO [facility] Last Admin: 05/13/18 01:40 Dose: 20 mg Physical Exam - Constitutional Appears: Well, Cachectic - Head Exam Head Exam: ATRAUMATIC - Eye Exam Pupil Exam: PERRL - ENT Exam ENT Exam: Mucous Membranes Moist - Respiratory Exam Respiratory Exam: Clear to Auscultation Bilateral, NORMAL BREATHING PATTERN - Cardiovascular Exam Cardiovascular Exam: REGULAR RHYTHM, +S1. absent: JVD - GI/Abdominal Exam GI & Abdominal Exam: Soft. absent: Tenderness - Extremities Exam Extremities exam: Negative for: pedal edema Additional comments: right groin mass, erythema and tenderness to palpitation - Neurological Exam Neurological exam: CN II-XII Intact, Oriented x3 - Psychiatric Exam Psychiatric exam: Normal Mood - Skin Skin Exam: Warm Results - Vital Signs Recent Vital Signs: Last Vital Signs Temp 97.9 F 05/13/18 12:00 Pulse 97 H 05/13/18 12:30 Resp 21 05/13/18 12:30 BP 122/64 05/13/18 12:19 Pulse Ox 95 05/13/18 12:30 - Labs Result Diagrams: 05/13/18 08:10 05/13/18 08:10 Labs: Laboratory Results - last 24 hr 05/12/18 05/12/18 05/12/18 14:27 21:54 21:54 WBC 15.1 H D RBC 4.97 Hgb 13.2 Hct 40.1 MCV 80.6 MCH 26.6 L MCHC 33.0 RDW 13.1 Plt Count 305 MPV 8.0 Neut % (Auto) 79.1 H Lymph % (Auto) 10.9 L [place] % (Auto) 9.2 Eos % (Auto) 0.4 Baso % (Auto) 0.4 Neut # (Auto) 12.0 H Lymph # (Auto) 1.6 [place]ow # (Auto) 1.4 H Eos # (Auto) 0.1 Baso # (Auto) 0.1 PT INR APTT Puncture Site Rr pCO2 33 L pO2 159 H HCO3 17.0 L ABG pH 7.28 L ABG Total CO2 16.5 L ABG O2 Saturation 95.0 ABG Base Excess -10.2 L Karthik Test Pos ABG Potassium 3.2 L A-a O2 Difference 156.0 Respiratory Index 1.0 Sodium 133.0 132 Chloride 96.0 L 92 L Glucose 590 H* Lactate 2.9 H Vent Mode Bipap FiO2 50.0 Inspiratory BiPAP 18 Expiratory BiPAP 10 Crit Value Called To Denisse call rn Crit Value Called By Keya nursing assistants teacher Crit Value Read Back Y Blood Gas Notified Time 6 Potassium 4.1 Carbon Dioxide 22 Anion Gap 23 H BUN 19 Creatinine 0.6 L Est GFR ( Amer) > 60 Est GFR (Non-Af Amer) > 60 POC Glucose (mg/dL) Random Glucose 439 H* D Hemoglobin A1c Lactic Acid Calcium 9.3 Phosphorus Magnesium Total Bilirubin 1.0 AST 34 ALT 26 Alkaline Phosphatase 90 Total Creatine Kinase CK-MB (Mass) Troponin I 1.2200 H* NT-Pro-B Natriuret Pep Total Protein 7.6 Albumin 4.1 Globulin 3.5 Albumin/Globulin Ratio 1.2 TSH 3rd Generation Arterial Blood Potassium 3.2 L Urine Color Urine Clarity Urine pH Ur Specific Bogard Urine Protein Urine Glucose (UA) Urine Ketones Urine Blood Urine Nitrate Urine Bilirubin Urine Urobilinogen Ur Leukocyte Esterase Urine WBC (Auto) Urine RBC (Auto) Urine Opiates Screen Urine Methadone Screen Ur Barbiturates Screen Ur Phencyclidine Scrn Ur Amphetamines Screen U Benzodiazepines Scrn U Oth Cocaine Metabols U Cannabinoids Screen B-Hydroxybutyrate 05/12/18 05/13/18 05/13/18 23:12 00:20 00:37 WBC RBC Hgb Hct MCV MCH MCHC RDW Plt Count MPV Neut % (Auto) Lymph % (Auto) [place] % (Auto) Eos % (Auto) Baso % (Auto) Neut # (Auto) Lymph # (Auto) [place] # (Auto) Eos # (Auto) Baso # (Auto) PT INR APTT Puncture Site pCO2 pO2 HCO3 ABG pH ABG Total CO2 ABG O2 Saturation ABG Base Excess Karthik Test ABG Potassium A-a O2 Difference Respiratory Index Sodium Chloride Glucose Lactate Vent Mode FiO2 Inspiratory BiPAP Expiratory BiPAP Crit Value Called To Crit Value Called By Crit Value Read Back Blood Gas Notified Time Potassium Carbon Dioxide Anion Gap BUN Creatinine Est GFR ( Amer) Est GFR (Non-Af Amer) POC Glucose (mg/dL) 489 H* Random Glucose Hemoglobin A1c 12.3 H Lactic Acid 1.6 Calcium Phosphorus Magnesium Total Bilirubin AST ALT Alkaline Phosphatase Total Creatine Kinase CK-MB (Mass) Troponin I NT-Pro-B Natriuret Pep Total Protein Albumin Globulin Albumin/Globulin Ratio TSH 3rd Generation Arterial Blood Potassium Urine Color Urine Clarity Urine pH Ur Specific Bogard Urine Protein Urine Glucose (UA) Urine Ketones Urine Blood Urine Nitrate Urine Bilirubin Urine Urobilinogen Ur Leukocyte Esterase Urine WBC (Auto) Urine RBC (Auto) Urine Opiates Screen Urine Methadone Screen Ur Barbiturates Screen Ur Phencyclidine Scrn Ur Amphetamines Screen U Benzodiazepines Scrn U Oth Cocaine Metabols U Cannabinoids Screen B-Hydroxybutyrate 05/13/18 05/13/18 05/13/18 00:44 01:57 01:58 WBC RBC Hgb Hct MCV MCH MCHC RDW Plt Count MPV Neut % (Auto) Lymph % (Auto) [place] % (Auto) Eos % (Auto) Baso % (Auto) Neut # (Auto) Lymph # (Auto) [place] # (Auto) Eos # (Auto) Baso # (Auto) PT 12.8 H INR 1.2 APTT 30 Puncture Site pCO2 pO2 HCO3 ABG pH ABG Total CO2 ABG O2 Saturation ABG Base Excess Karthik Test ABG Potassium A-a O2 Difference Respiratory Index Sodium 133 Chloride 98 Glucose Lactate Vent Mode FiO2 Inspiratory BiPAP Expiratory BiPAP Crit Value Called To Crit Value Called By Crit Value Read Back Blood Gas Notified Time Potassium 3.4 L Carbon Dioxide 20 L Anion Gap 18 BUN 17 Creatinine 0.7 L Est GFR ( Amer) > 60 Est GFR (Non-Af Amer) > 60 POC Glucose (mg/dL) Random Glucose 412 H* Hemoglobin A1c Lactic Acid Calcium 8.0 L Phosphorus 2.7 Magnesium 2.6 H Total Bilirubin 0.6 AST 47 ALT 28 Alkaline Phosphatase 100 Total Creatine Kinase 151 CK-MB (Mass) 2.76 Troponin I 1.1200 H* NT-Pro-B Natriuret Pep 1910 H Total Protein 6.7 Albumin 3.7 Globulin 3.0 Albumin/Globulin Ratio 1.2 TSH 3rd Generation 0.76 Arterial Blood Potassium Urine Color Urine Clarity Urine pH Ur Specific Bogard Urine Protein Urine Glucose (UA) Urine Ketones Urine Blood Urine Nitrate Urine Bilirubin Urine Urobilinogen Ur Leukocyte Esterase Urine WBC (Auto) Urine RBC (Auto) Urine Opiates Screen Urine Methadone Screen Ur Barbiturates Screen Ur Phencyclidine Scrn Ur Amphetamines Screen U Benzodiazepines Scrn U Oth Cocaine Metabols U Cannabinoids Screen B-Hydroxybutyrate 3.34 H 05/13/18 05/13/18 05/13/18 02:18 02:37 04:55 WBC RBC Hgb Hct MCV MCH MCHC RDW Plt Count MPV Neut % (Auto) Lymph % (Auto) [place] % (Auto) Eos % (Auto) Baso % (Auto) Neut # (Auto) Lymph # (Auto) [place] # (Auto) Eos # (Auto) Baso # (Auto) PT INR APTT Puncture Site pCO2 pO2 HCO3 ABG pH ABG Total CO2 ABG O2 Saturation ABG Base Excess Karthik Test ABG Potassium A-a O2 Difference Respiratory Index Sodium Chloride Glucose Lactate Vent Mode FiO2 Inspiratory BiPAP Expiratory BiPAP Crit Value Called To Crit Value Called By Crit Value Read Back Blood Gas Notified Time Potassium Carbon Dioxide Anion Gap BUN Creatinine Est GFR ( Amer) Est GFR (Non-Af Amer) POC Glucose (mg/dL) 333 H 142 H Random Glucose Hemoglobin A1c Lactic Acid 1.6 Calcium Phosphorus Magnesium Total Bilirubin AST ALT Alkaline Phosphatase Total Creatine Kinase CK-MB (Mass) Troponin I NT-Pro-B Natriuret Pep Total Protein Albumin Globulin Albumin/Globulin Ratio TSH 3rd Generation Arterial Blood Potassium Urine Color Urine Clarity Urine pH Ur Specific Bogard Urine Protein Urine Glucose (UA) Urine Ketones Urine Blood Urine Nitrate Urine Bilirubin Urine Urobilinogen Ur Leukocyte Esterase Urine WBC (Auto) Urine RBC (Auto) Urine Opiates Screen Urine Methadone Screen Ur Barbiturates Screen Ur Phencyclidine Scrn Ur Amphetamines Screen U Benzodiazepines Scrn U Oth Cocaine Metabols U Cannabinoids Screen B-Hydroxybutyrate 05/13/18 05/13/18 05/13/18 06:30 08:10 08:10 WBC RBC Hgb Hct MCV MCH MCHC RDW Plt Count MPV Neut % (Auto) Lymph % (Auto) [place] % (Auto) Eos % (Auto) Baso % (Auto) Neut # (Auto) Lymph # (Auto) [place] # (Auto) Eos # (Auto) Baso # (Auto) PT INR APTT Puncture Site pCO2 pO2 HCO3 ABG pH ABG Total CO2 ABG O2 Saturation ABG Base Excess Karthik Test ABG Potassium A-a O2 Difference Respiratory Index Sodium 137 Chloride 100 Glucose Lactate Vent Mode FiO2 Inspiratory BiPAP Expiratory BiPAP Crit Value Called To Crit Value Called By Crit Value Read Back Blood Gas Notified Time Potassium 3.3 L Carbon Dioxide 28 Anion Gap 13 BUN 19 Creatinine 0.7 L Est GFR ( Amer) > 60 Est GFR (Non-Af Amer) > 60 POC Glucose (mg/dL) 90 Random Glucose 91 Hemoglobin A1c Lactic Acid Calcium 8.1 L Phosphorus 3.3 Magnesium 2.3 Total Bilirubin 0.7 AST 73 H D ALT 29 Alkaline Phosphatase 78 Total Creatine Kinase 430 H CK-MB (Mass) 22.5 H Troponin I 11.5000 H* NT-Pro-B Natriuret Pep Total Protein 6.2 L Albumin 3.1 L Globulin 3.1 Albumin/Globulin Ratio 1.0 TSH 3rd Generation Arterial Blood Potassium Urine Color Straw Urine Clarity Clear Urine pH 5.0 Ur Specific Bogard 1.016 Urine Protein Negative Urine Glucose (UA) 3+ H Urine Ketones 1+ H Urine Blood 1+ H Urine Nitrate Negative Urine Bilirubin Negative Urine Urobilinogen Normal Ur Leukocyte Esterase Neg Urine WBC (Auto) 1 Urine RBC (Auto) 4 H Urine Opiates Screen Urine Methadone Screen Ur Barbiturates Screen Ur Phencyclidine Scrn Ur Amphetamines Screen U Benzodiazepines Scrn U Oth Cocaine Metabols U Cannabinoids Screen B-Hydroxybutyrate 05/13/18 05/13/18 05/13/18 08:10 08:10 08:10 WBC 16.8 H RBC 4.27 L Hgb 11.3 L Hct 33.9 L MCV 79.4 L MCH 26.5 L MCHC 33.4 RDW 13.2 Plt Count 291 MPV 7.9 Neut % (Auto) 77.7 H Lymph % (Auto) 12.0 L [place] % (Auto) 10.2 H Eos % (Auto) 0.0 Baso % (Auto) 0.1 Neut # (Auto) 13.1 H Lymph # (Auto) 2.0 [place] # (Auto) 1.7 H Eos # (Auto) 0.0 Baso # (Auto) 0.0 PT INR APTT 33 Puncture Site pCO2 pO2 HCO3 ABG pH ABG Total CO2 ABG O2 Saturation ABG Base Excess Karthik Test ABG Potassium A-a O2 Difference Respiratory Index Sodium Chloride Glucose Lactate Vent Mode FiO2 Inspiratory BiPAP Expiratory BiPAP Crit Value Called To Crit Value Called By Crit Value Read Back Blood Gas Notified Time Potassium Carbon Dioxide Anion Gap BUN Creatinine Est GFR ( Amer) Est GFR (Non-Af Amer) POC Glucose (mg/dL) Random Glucose Hemoglobin A1c Lactic Acid Calcium Phosphorus Magnesium Total Bilirubin AST ALT Alkaline Phosphatase Total Creatine Kinase CK-MB (Mass) Troponin I NT-Pro-B Natriuret Pep Total Protein Albumin Globulin Albumin/Globulin Ratio TSH 3rd Generation Arterial Blood Potassium Urine Color Urine Clarity Urine pH Ur Specific Bogard Urine Protein Urine Glucose (UA) Urine Ketones Urine Blood Urine Nitrate Urine Bilirubin Urine Urobilinogen Ur Leukocyte Esterase Urine WBC (Auto) Urine RBC (Auto) Urine Opiates Screen Negative Urine Methadone Screen Negative Ur Barbiturates Screen Negative Ur Phencyclidine Scrn Negative Ur Amphetamines Screen Negative U Benzodiazepines Scrn Negative U Oth Cocaine Metabols Negative U Cannabinoids Screen Negative B-Hydroxybutyrate 05/13/18 08:42 WBC RBC Hgb Hct MCV MCH MCHC RDW Plt Count MPV Neut % (Auto) Lymph % (Auto) [place] % (Auto) Eos % (Auto) Baso % (Auto) Neut # (Auto) Lymph # (Auto) [place] # (Auto) Eos # (Auto) Baso # (Auto) PT INR APTT Puncture Site pCO2 pO2 HCO3 ABG pH ABG Total CO2 ABG O2 Saturation ABG Base Excess Karthik Test ABG Potassium A-a O2 Difference Respiratory Index Sodium Chloride Glucose Lactate Vent Mode FiO2 Inspiratory BiPAP Expiratory BiPAP Crit Value Called To Crit Value Called By Crit Value Read Back Blood Gas Notified Time Potassium Carbon Dioxide Anion Gap BUN Creatinine Est GFR ( Amer) Est GFR (Non-Af Amer) POC Glucose (mg/dL) Random Glucose Hemoglobin A1c Lactic Acid 1.0 Calcium Phosphorus Magnesium Total Bilirubin AST ALT Alkaline Phosphatase Total Creatine Kinase CK-MB (Mass) Troponin I NT-Pro-B Natriuret Pep Total Protein Albumin Globulin Albumin/Globulin Ratio TSH 3rd Generation Arterial Blood Potassium Urine Color Urine Clarity Urine pH Ur Specific Bogard Urine Protein Urine Glucose (UA) Urine Ketones Urine Blood Urine Nitrate Urine Bilirubin Urine Urobilinogen Ur Leukocyte Esterase Urine WBC (Auto) Urine RBC (Auto) Urine Opiates Screen Urine Methadone Screen Ur Barbiturates Screen Ur Phencyclidine Scrn Ur Amphetamines Screen U Benzodiazepines Scrn U Oth Cocaine Metabols U Cannabinoids Screen B-Hydroxybutyrate Assessment & Plan (1) Non-ST elevation (NSTEMI) myocardial infarction Assessment and Plan: in setting of cellulitis/SERS/DKA Underlying CAD s/p CABG Currently asymptomatic and hemodynamically stable Cont with anticoagulation ASA/clopidogrel 2D echo Cardiac catheterization when infection resolves Status: Acute (2) Essential (primary) hypertension Assessment and Plan: Cont with meds, including bblocker Status: Acute (3) Mixed hyperlipidemia Assessment and Plan: Lipid profile Cont with statin Status: Acute
--- NOTE | 2018-05-13 13:18 | CP.PCM.PN ---
Subjective - Date & Time of Evaluation Date of Evaluation: 05/13/18 Time of Evaluation: 13:10 - Subjective Subjective: SOB improved, patient alert oriented, able to communicate, denies sob, groin pain in control. Am trop 11, ST changes in the ekg at presentation now resolved in this am ekg. Objective - Vital Signs/Intake and Output Vital Signs (last 24 hours): Temp Pulse Resp BP Pulse Ox 97.9 F 97 H 21 122/64 95 05/13/18 12:00 05/13/18 12:30 05/13/18 12:30 05/13/18 12:19 05/13/18 12:30 Intake and Output: 05/13/18 05/13/18 06:59 18:59 Intake Total 223.55 684.8 Output Total 400 250 Balance -176.45 434.8 - Medications Medications: Current Medications Acetaminophen (Tylenol 325mg Tab) 650 mg PO Q6 PRN PRN Reason: Pain, Mild (1-3) Aspirin (Aspirin Chewable) 81 mg PO DAILY [facility] Last Admin: 05/13/18 10:03 Dose: 81 mg Clopidogrel Bisulfate (Plavix) 75 mg PO DAILY [facility] Last Admin: 05/13/18 10:03 Dose: 75 mg Clindamycin Phosphate 600 mg/ (Sodium Chloride) 54 mls @ 100 mls/hr IVPB Q6H [facility]; Protocol Last Admin: 05/13/18 09:58 Dose: 100 mls/hr Heparin Sodium/Sodium Chloride (Heparin 83748 Units/250ml 1/2 Normal Saline) 25,000 units in 250 mls @ 7.2 mls/hr IV .Q24H PRN; Protocol PRN Reason: ADJUST RATE PER PROTOCOL Last Titration: 05/13/18 09:52 Dose: 16.1 units/kg/hr, 9.66 mls/hr Ceftriaxone Sodium 2 gm/ (Sodium Chloride) 100 mls @ 100 mls/hr IVPB DAILY [facility]; Protocol Last Admin: 05/13/18 10:06 Dose: 100 mls/hr Nitroglycerin/Dextrose (Nitroglycerin 50 Mg/250 Ml D5w) 50 mg in 250 mls @ 1.5 mls/hr IV .Q24H [facility]; Protocol Last Titration: 05/13/18 09:30 Dose: 0 mcg/min, 0 mls/hr Insulin Glargine (Lantus) 10 unit SC [facility] Insulin Human Regular (Novolin R) 0 unit SC [facility]; Protocol Last Admin: 05/13/18 11:57 Dose: 3 units Metoprolol Tartrate (Lopressor) 25 mg PO BID [facility] Last Admin: 05/13/18 10:03 Dose: 25 mg Oxycodone/Acetaminophen (Percocet 5/325 Mg Tab) 1 tab PO Q6H PRN PRN Reason: Pain, moderate (4-7) Stop: 05/16/18 12:03 Pantoprazole Sodium (Protonix Inj) 40 mg IVP Q12H [facility] Last Admin: 05/13/18 11:40 Dose: 40 mg Rosuvastatin Calcium (Crestor) 20 mg PO [facility] Last Admin: 05/13/18 01:40 Dose: 20 mg - Labs Labs: 05/13/18 08:10 05/13/18 08:10 PT 12.8 SECONDS (9.7-12.2) H 05/13/18 01:58 INR 1.2 05/13/18 01:58 APTT 33 SECONDS (21-34) 05/13/18 08:10 - Additional Findings Additional findings: * HEENT LEEANNE * Neck Supple * Chest Clear now * CVS regular, no gallop or rub * PA soft, right groin swelling and skin changes noticed, the swelling has reduced from the marking done yesterday * Ext no edema, right groin as above * Skin normal turgor * BINDERY MACHINE OPERATOR awake oriented x3, communicates in Cymro and Eleazar Assessment and Plan - Assessment and Plan (Free Text) Assessment: * Right groin developing abscess, cellulitis, improving on abx * NSTEMI elevated trop from last night event, lateral st depressions now resolved * Uncontrolled DM, early DKA resolved started on subq insulin and oha * tobacco abuse * CABG 13 yrs back * Plan: * Clinda/rocephin * ASA, plavix, anticoagulation therapeutic, betablocker, statin * Once cellulitis clear may develop localized fluid collection * Cardiac cath after infections process resolves * Counselled about smoking cessation. * See orders for detail.
--- NOTE | 2018-05-13 13:29 | CP.PCM.CON ---
History of Present Illness - History of Present Illness History of Present Illness: 62 yo male diabetic presents to emergency department with right groin pain x one week Did not seek medical attention and stpped taking his meds Admitted to ICU for sepsis r/o ACS Found to have elevated troponins referred for ID eval of right groin infection PMH- CABG, DM, HLD PSH- CABG FH- DM (dad and brother), HTN Social- 8-10 cigs/day, denies alcohol and drug use Meds- Lopressor 50mg po daily, Glyburide/Metformin 1 tab po daily, Enalapril 10mg po daily, Plavix 75mg po daily, Lipitor 10mg po daily, Aspirin 81mg po daily All- NKDA Review of Systems - Review of Systems All systems: reviewed and no additional remarkable complaints except - Constitutional Constitutional: As Per HPI, Anorexia, Chills, Fever - EENT Eyes: absent: As Per HPI, Blind Spots, Blurred Vision, Change in Vision, Decreased Night Vision, Diplopia, Discharge, Dry Eye, Exophthalmos, Floaters, Ir ritation, Itchy Eyes, Loss of Peripheral Vision, Pain, Photophobia, Requires Corrective Lenses, Sees Flashes, Spots in Vision, Tunnel Vision, Other Visual Disturbances, Loss of Vision, Other Ears: absent: As Per HPI, Decreased Hearing, Ear Discharge, Ear Pain, Tinnitus, Abnormal Hearing, Disequilibrium, Dizziness, Other Nose/Mouth/Throat: absent: As Per HPI, Epistaxis, Nasal Congestion, Nasal Discharge, Nasal Obstruction, Nasal Trauma, Nose Pain, Post Nasal Drip, Sinus Pain, Sinus Pressure, Bleeding Gums, Change in Voice, Dental Pain, Dry Mouth, Dysphagia, Halitosis, Hoarsness, Lip Swelling, Mouth Lesions, Mouth Pain, Odynophagia, Sore Throat, Throat Swelling, Tongue Swelling, Facial Pain, Neck Pain, Neck Mass, Other - Cardiovascular Cardiovascular: absent: As Per HPI, Acrocyanosis, Chest Pain, Chest Pain at Rest, Chest Pain with Activity, Claudication, Diaphoresis, Dyspnea, Dyspnea on Exertion, Edema, Irregular Heart Rhythm, Pain Radiating to Arm/Neck/Jaw, Leg Edema, Leg Ulcers, Lightheadedness, Orthopnea, Palpitations, Paroxysmal Nocturnal Dyspnea, Pedal Edema, Radiating Pain, Rapid Heart Rate, Slow Heart Rate, Syncope, Other - Respiratory Respiratory: absent: As Per HPI, Cough, Dyspnea, Hemoptysis, Dyspnea on Exertion, Wheezing, Snoring, Stridor, Pain on Inspiration, Chest Congestion, Excessive Mucous Production, Change in Mucous Color, Pain with Coughing, Other - Gastrointestinal Gastrointestinal: absent: As Per HPI, Abdominal Pain, Belching, Bloating, Change in Bowel Habits, Change in Stool Character, Coffee Ground Emesis, Constipation, Cramping, Diarrhea, Dyspepsia, Dysphagia, Early Satiety, Excessive Flatus, Fecal Incontinence, Heartburn, Hematemesis, Hematochezia, Loose Stools, Melena, Nausea, Odynophagia, Temesmus, Vomiting, Other - Genitourinary Genitourinary: As Per HPI - Musculoskeletal Musculoskeletal: absent: As Per HPI, Abnormal Gait, Arthralgias, Atrophy, Back Pain, Deformity, Joint Swelling, Limited Range of Motion, Loss of Height, Muscle Cramps, Muscle Weakness, Myalgias, Neck Pain, Numbness, Radiating Pain into Limb, Stiffness, Tingling, Other - Integumentary Integumentary: As Per HPI, Skin Pain, Wounds - Neurological Neurological: absent: As Per HPI, Abnormal Gait, Abnormal Hearing, Abnormal Movements, Abnormal Speech, Behavioral Changes, Burning Sensations, Confusion, Convulsions, Disequilibrium, Dizziness, Numbness, Focal Weakness, Frequent Falls, Headaches, Lack of Coordination, Loss of Vision, Memory Loss, Par esthesias, Radicular Pain, Restless Legs, Sensory Deficit, Syncope, Tingling, Tremor, Vertigo, Weakness, Other Visual Disturbances, Other - Psychiatric Psychiatric: absent: As Per HPI, Abnormal Sleep Pattern, Anhedonia, Anxiety, Auditory Hallucinations, Behavioral Changes, Change in Appetite, Change in Libido, Confusion, Depression, Difficulty Concentrating, Hallucinations, Homicidal Ideation, Hopelessness, Irritability, Memory Loss, Mood Swings, Panic Attacks, Paranoia, Suicidal Ideation, Visual Hallucinations, Tactile Hallucinations, Other - Endocrine Endocrine: absent: As Per HPI, Change in Body Appearance, Change in Libido, Cold Intolorance, Deepening of Voice, Excessive Sweating, Fatigue, Flushing, Heat Intolorance, Increase in Ring/Shoe/Hat Size, Palpitations, Polydipsia, Polyphagia, Polyuria, Other - Hematologic/Lymphatic Hematologic: absent: As Per HPI, Easy Bleeding, Easy Bruising, Lymphadenopathy, Other Past Patient History - Infectious Disease Hx of Infectious Diseases: None - Tetanus Immunizations Tetanus Immunization: Unknown - Past Medical History & Family History Past Medical History?: Yes - Past Social History Smoking Status: Light Smoker < 10 Cigarettes Daily - CARDIAC Hx Cardiac Disorders: Yes Hx Hypotension: Yes Other/Comment: cardiac bypass - PULMONARY Hx Respiratory Disorders: No - NEUROLOGICAL Hx Neurological Disorder: No - HEENT Hx HEENT Problems: Yes Other/Comment: left eye blurry - RENAL Hx Chronic Kidney Disease: No - ENDOCRINE/METABOLIC Hx Endocrine Disorders: Yes Hx Diabetes Mellitus Type 2: Yes - HEMATOLOGICAL/ONCOLOGICAL Hx Blood Disorders: No - INTEGUMENTARY Hx Dermatological Problems: No - MUSCULOSKELETAL/RHEUMATOLOGICAL Hx Falls: No - GASTROINTESTINAL Hx Gastrointestinal Disorders: Yes Hx Constipation: Yes - GENITOURINARY/GYNECOLOGICAL Hx Genitourinary Disorders: No - PSYCHIATRIC Hx Substance Use: No - SURGICAL HISTORY Hx Coronary Artery Bypass Graft: Yes - ANESTHESIA Hx Anesthesia: No Hx Anesthesia Reactions: No Hx Malignant Hyperthermia: No Meds Allergies/Adverse Reactions: Allergies Allergy/AdvReac Type Severity Reaction Status Date / Time No Known Allergies Allergy Verified 05/12/18 19:02 - Medications Medications: Current Medications Acetaminophen (Tylenol 325mg Tab) 650 mg PO Q6 PRN PRN Reason: Pain, Mild (1-3) Aspirin (Aspirin Chewable) 81 mg PO DAILY [facility] Last Admin: 05/13/18 10:03 Dose: 81 mg Clopidogrel Bisulfate (Plavix) 75 mg PO DAILY [facility] Last Admin: 05/13/18 10:03 Dose: 75 mg Clindamycin Phosphate 600 mg/ (Sodium Chloride) 54 mls @ 100 mls/hr IVPB Q6H JOSE R; Protocol Last Admin: 05/13/18 09:58 Dose: 100 mls/hr Heparin Sodium/Sodium Chloride (Heparin 25951 Units/250ml 1/2 Normal Saline) 25,000 units in 250 mls @ 7.2 mls/hr IV .Q24H PRN; Protocol PRN Reason: ADJUST RATE PER PROTOCOL Last Titration: 05/13/18 09:52 Dose: 16.1 units/kg/hr, 9.66 mls/hr Ceftriaxone Sodium 2 gm/ (Sodium Chloride) 100 mls @ 100 mls/hr IVPB DAILY JOSE R; Protocol Last Admin: 05/13/18 10:06 Dose: 100 mls/hr Nitroglycerin/Dextrose (Nitroglycerin 50 Mg/250 Ml D5w) 50 mg in 250 mls @ 1.5 mls/hr IV .Q24H [facility]; Protocol Last Titration: 05/13/18 09:30 Dose: 0 mcg/min, 0 mls/hr Insulin Glargine (Lantus) 10 unit SC HS [facility] Insulin Human Regular (Novolin R) 0 unit SC ACHS [facility]; Protocol Last Admin: 05/13/18 11:57 Dose: 3 units Metoprolol Tartrate (Lopressor) 25 mg PO BID [facility] Last Admin: 05/13/18 10:03 Dose: 25 mg Oxycodone/Acetaminophen (Percocet 5/325 Mg Tab) 1 tab PO Q6H PRN PRN Reason: Pain, moderate (4-7) Stop: 05/16/18 12:03 Pantoprazole Sodium (Protonix Inj) 40 mg IVP Q12H [facility] Last Admin: 05/13/18 11:40 Dose: 40 mg Rosuvastatin Calcium (Crestor) 20 mg PO [facility] Last Admin: 05/13/18 01:40 Dose: 20 mg Physical Exam - Constitutional Appears: No Acute Distress, Chronically Ill - Head Exam Head Exam: ATRAUMATIC, NORMAL INSPECTION, NORMOCEPHALIC - Eye Exam Eye Exam: EOMI, PERRL. absent: Scleral icterus Pupil Exam: NORMAL ACCOMODATION - ENT Exam ENT Exam: Mucous Membranes Dry, Normal External Ear Exam - Neck Exam Neck exam: Negative for: Lymphadenopathy - Respiratory Exam Respiratory Exam: Decreased Breath Sounds, Clear to Auscultation Bilateral - Cardiovascular Exam Cardiovascular Exam: REGULAR RHYTHM, +S1, +S2 - GI/Abdominal Exam GI & Abdominal Exam: Diminished Bowel Sounds, Soft. absent: Tenderness - Rectal Exam Rectal Exam: Deferred - Extremities Exam Extremities exam: Positive for: pedal pulses present. Negative for: calf tenderness, pedal edema - Back Exam Back exam: absent: CVA tenderness (L), CVA tenderness (R) - Neurological Exam Neurological exam: Alert, CN II-XII Intact, Oriented x3, Reflexes Normal - Psychiatric Exam Psychiatric exam: Depressed - Skin Additional comments: right groin swelling with enlarged tender LN and drainage Results - Vital Signs Recent Vital Signs: Last Vital Signs Temp 97.9 F 05/13/18 12:00 Pulse 97 H 05/13/18 12:30 Resp 21 05/13/18 12:30 BP 122/64 05/13/18 12:19 Pulse Ox 95 05/13/18 12:30 - Labs Result Diagrams: 05/13/18 08:10 05/13/18 08:10 Labs: Laboratory Results - last 24 hr 05/12/18 05/12/18 05/12/18 14:27 21:54 21:54 WBC 15.1 H D RBC 4.97 Hgb 13.2 Hct 40.1 MCV 80.6 MCH 26.6 L MCHC 33.0 RDW 13.1 Plt Count 305 MPV 8.0 Neut % (Auto) 79.1 H Lymph % (Auto) 10.9 L [place] % (Auto) 9.2 Eos % (Auto) 0.4 Baso % (Auto) 0.4 Neut # (Auto) 12.0 H Lymph # (Auto) 1.6 [place] # (Auto) 1.4 H Eos # (Auto) 0.1 Baso # (Auto) 0.1 PT INR APTT Puncture Site Rr pCO2 33 L pO2 159 H HCO3 17.0 L ABG pH 7.28 L ABG Total CO2 16.5 L ABG O2 Saturation 95.0 ABG Base Excess -10.2 L Karthik Test Pos ABG Potassium 3.2 L A-a O2 Difference 156.0 Respiratory Index 1.0 Sodium 133.0 132 Chloride 96.0 L 92 L Glucose 590 H* Lactate 2.9 H Vent Mode Bipap FiO2 50.0 Inspiratory BiPAP 18 Expiratory BiPAP 10 Crit Value Called To Denisse call rn Crit Value Called By Keya order tracer Crit Value Read Back Y Blood Gas Notified Time 6 Potassium 4.1 Carbon Dioxide 22 Anion Gap 23 H BUN 19 Creatinine 0.6 L Est GFR ( Amer) > 60 Est GFR (Non-Af Amer) > 60 POC Glucose (mg/dL) Random Glucose 439 H* D Hemoglobin A1c Lactic Acid Calcium 9.3 Phosphorus Magnesium Total Bilirubin 1.0 AST 34 ALT 26 Alkaline Phosphatase 90 Total Creatine Kinase CK-MB (Mass) Troponin I 1.2200 H* NT-Pro-B Natriuret Pep Total Protein 7.6 Albumin 4.1 Globulin 3.5 Albumin/Globulin Ratio 1.2 TSH 3rd Generation Arterial Blood Potassium 3.2 L Urine Color Urine Clarity Urine pH Ur Specific [place] Urine Protein Urine Glucose (UA) Urine Ketones Urine Blood Urine Nitrate Urine Bilirubin Urine Urobilinogen Ur Leukocyte Esterase Urine WBC (Auto) Urine RBC (Auto) Urine Opiates Screen Urine Methadone Screen Ur Barbiturates Screen Ur Phencyclidine Scrn Ur Amphetamines Screen U Benzodiazepines Scrn U Oth Cocaine Metabols U Cannabinoids Screen B-Hydroxybutyrate 05/12/18 05/13/18 05/13/18 23:12 00:20 00:37 WBC RBC Hgb Hct MCV MCH MCHC RDW Plt Count MPV Neut % (Auto) Lymph % (Auto) [place] % (Auto) Eos % (Auto) Baso % (Auto) Neut # (Auto) Lymph # (Auto) [place] # (Auto) Eos # (Auto) Baso # (Auto) PT INR APTT Puncture Site pCO2 pO2 HCO3 ABG pH ABG Total CO2 ABG O2 Saturation ABG Base Excess Karthik Test ABG Potassium A-a O2 Difference Respiratory Index Sodium Chloride Glucose Lactate Vent Mode FiO2 Inspiratory BiPAP Expiratory BiPAP Crit Value Called To Crit Value Called By Crit Value Read Back Blood Gas Notified Time Potassium Carbon Dioxide Anion Gap BUN Creatinine Est GFR ( Amer) Est GFR (Non-Af Amer) POC Glucose (mg/dL) 489 H* Random Glucose Hemoglobin A1c 12.3 H Lactic Acid 1.6 Calcium Phosphorus Magnesium Total Bilirubin AST ALT Alkaline Phosphatase Total Creatine Kinase CK-MB (Mass) Troponin I NT-Pro-B Natriuret Pep Total Protein Albumin Globulin Albumin/Globulin Ratio TSH 3rd Generation Arterial Blood Potassium Urine Color Urine Clarity Urine pH Ur Specific [place] Urine Protein Urine Glucose (UA) Urine Ketones Urine Blood Urine Nitrate Urine Bilirubin Urine Urobilinogen Ur Leukocyte Esterase Urine WBC (Auto) Urine RBC (Auto) Urine Opiates Screen Urine Methadone Screen Ur Barbiturates Screen Ur Phencyclidine Scrn Ur Amphetamines Screen U Benzodiazepines Scrn U Oth Cocaine Metabols U Cannabinoids Screen B-Hydroxybutyrate 05/13/18 05/13/18 05/13/18 00:44 01:57 01:58 WBC RBC Hgb Hct MCV MCH MCHC RDW Plt Count MPV Neut % (Auto) Lymph % (Auto) [place] % (Auto) Eos % (Auto) Baso % (Auto) Neut # (Auto) Lymph # (Auto) [place] # (Auto) Eos # (Auto) Baso # (Auto) PT 12.8 H INR 1.2 APTT 30 Puncture Site pCO2 pO2 HCO3 ABG pH ABG Total CO2 ABG O2 Saturation ABG Base Excess Karthik Test ABG Potassium A-a O2 Difference Respiratory Index Sodium 133 Chloride 98 Glucose Lactate Vent Mode FiO2 Inspiratory BiPAP Expiratory BiPAP Crit Value Called To Crit Value Called By Crit Value Read Back Blood Gas Notified Time Potassium 3.4 L Carbon Dioxide 20 L Anion Gap 18 BUN 17 Creatinine 0.7 L Est GFR ( Amer) > 60 Est GFR (Non-Af Amer) > 60 POC Glucose (mg/dL) Random Glucose 412 H* Hemoglobin A1c Lactic Acid Calcium 8.0 L Phosphorus 2.7 Magnesium 2.6 H Total Bilirubin 0.6 AST 47 ALT 28 Alkaline Phosphatase 100 Total Creatine Kinase 151 CK-MB (Mass) 2.76 Troponin I 1.1200 H* NT-Pro-B Natriuret Pep 1910 H Total Protein 6.7 Albumin 3.7 Globulin 3.0 Albumin/Globulin Ratio 1.2 TSH 3rd Generation 0.76 Arterial Blood Potassium Urine Color Urine Clarity Urine pH Ur Specific [place] Urine Protein Urine Glucose (UA) Urine Ketones Urine Blood Urine Nitrate Urine Bilirubin Urine Urobilinogen Ur Leukocyte Esterase Urine WBC (Auto) Urine RBC (Auto) Urine Opiates Screen Urine Methadone Screen Ur Barbiturates Screen Ur Phencyclidine Scrn Ur Amphetamines Screen U Benzodiazepines Scrn U Oth Cocaine Metabols U Cannabinoids Screen B-Hydroxybutyrate 3.34 H 05/13/18 05/13/18 05/13/18 02:18 02:37 04:55 WBC RBC Hgb Hct MCV MCH MCHC RDW Plt Count MPV Neut % (Auto) Lymph % (Auto) [place] % (Auto) Eos % (Auto) Baso % (Auto) Neut # (Auto) Lymph # (Auto) [place] # (Auto) Eos # (Auto) Baso # (Auto) PT INR APTT Puncture Site pCO2 pO2 HCO3 ABG pH ABG Total CO2 ABG O2 Saturation ABG Base Excess Karthik Test ABG Potassium A-a O2 Difference Respiratory Index Sodium Chloride Glucose Lactate Vent Mode FiO2 Inspiratory BiPAP Expiratory BiPAP Crit Value Called To Crit Value Called By Crit Value Read Back Blood Gas Notified Time Potassium Carbon Dioxide Anion Gap BUN Creatinine Est GFR ( Amer) Est GFR (Non-Af Amer) POC Glucose (mg/dL) 333 H 142 H Random Glucose Hemoglobin A1c Lactic Acid 1.6 Calcium Phosphorus Magnesium Total Bilirubin AST ALT Alkaline Phosphatase Total Creatine Kinase CK-MB (Mass) Troponin I NT-Pro-B Natriuret Pep Total Protein Albumin Globulin Albumin/Globulin Ratio TSH 3rd Generation Arterial Blood Potassium Urine Color Urine Clarity Urine pH Ur Specific [place] Urine Protein Urine Glucose (UA) Urine Ketones Urine Blood Urine Nitrate Urine Bilirubin Urine Urobilinogen Ur Leukocyte Esterase Urine WBC (Auto) Urine RBC (Auto) Urine Opiates Screen Urine Methadone Screen Ur Barbiturates Screen Ur Phencyclidine Scrn Ur Amphetamines Screen U Benzodiazepines Scrn U Oth Cocaine Metabols U Cannabinoids Screen B-Hydroxybutyrate 05/13/18 05/13/18 05/13/18 06:30 08:10 08:10 WBC RBC Hgb Hct MCV MCH MCHC RDW Plt Count MPV Neut % (Auto) Lymph % (Auto) [place] % (Auto) Eos % (Auto) Baso % (Auto) Neut # (Auto) Lymph # (Auto) [place] # (Auto) Eos # (Auto) Baso # (Auto) PT INR APTT Puncture Site pCO2 pO2 HCO3 ABG pH ABG Total CO2 ABG O2 Saturation ABG Base Excess Karthik Test ABG Potassium A-a O2 Difference Respiratory Index Sodium 137 Chloride 100 Glucose Lactate Vent Mode FiO2 Inspiratory BiPAP Expiratory BiPAP Crit Value Called To Crit Value Called By Crit Value Read Back Blood Gas Notified Time Potassium 3.3 L Carbon Dioxide 28 Anion Gap 13 BUN 19 Creatinine 0.7 L Est GFR ( Amer) > 60 Est GFR (Non-Af Amer) > 60 POC Glucose (mg/dL) 90 Random Glucose 91 Hemoglobin A1c Lactic Acid Calcium 8.1 L Phosphorus 3.3 Magnesium 2.3 Total Bilirubin 0.7 AST 73 H D ALT 29 Alkaline Phosphatase 78 Total Creatine Kinase 430 H CK-MB (Mass) 22.5 H Troponin I 11.5000 H* NT-Pro-B Natriuret Pep Total Protein 6.2 L Albumin 3.1 L Globulin 3.1 Albumin/Globulin Ratio 1.0 TSH 3rd Generation Arterial Blood Potassium Urine Color Straw Urine Clarity Clear Urine pH 5.0 Ur Specific [place] 1.016 Urine Protein Negative Urine Glucose (UA) 3+ H Urine Ketones 1+ H Urine Blood 1+ H Urine Nitrate Negative Urine Bilirubin Negative Urine Urobilinogen Normal Ur Leukocyte Esterase Neg Urine WBC (Auto) 1 Urine RBC (Auto) 4 H Urine Opiates Screen Urine Methadone Screen Ur Barbiturates Screen Ur Phencyclidine Scrn Ur Amphetamines Screen U Benzodiazepines Scrn U Oth Cocaine Metabols U Cannabinoids Screen B-Hydroxybutyrate 05/13/18 05/13/18 05/13/18 08:10 08:10 08:10 WBC 16.8 H RBC 4.27 L Hgb 11.3 L Hct 33.9 L MCV 79.4 L MCH 26.5 L MCHC 33.4 RDW 13.2 Plt Count 291 MPV 7.9 Neut % (Auto) 77.7 H Lymph % (Auto) 12.0 L [place] % (Auto) 10.2 H Eos % (Auto) 0.0 Baso % (Auto) 0.1 Neut # (Auto) 13.1 H Lymph # (Auto) 2.0 [place] # (Auto) 1.7 H Eos # (Auto) 0.0 Baso # (Auto) 0.0 PT INR APTT 33 Puncture Site pCO2 pO2 HCO3 ABG pH ABG Total CO2 ABG O2 Saturation ABG Base Excess Karthik Test ABG Potassium A-a O2 Difference Respiratory Index Sodium Chloride Glucose Lactate Vent Mode FiO2 Inspiratory BiPAP Expiratory BiPAP Crit Value Called To Crit Value Called By Crit Value Read Back Blood Gas Notified Time Potassium Carbon Dioxide Anion Gap BUN Creatinine Est GFR ( Amer) Est GFR (Non-Af Amer) POC Glucose (mg/dL) Random Glucose Hemoglobin A1c Lactic Acid Calcium Phosphorus Magnesium Total Bilirubin AST ALT Alkaline Phosphatase Total Creatine Kinase CK-MB (Mass) Troponin I NT-Pro-B Natriuret Pep Total Protein Albumin Globulin Albumin/Globulin Ratio TSH 3rd Generation Arterial Blood Potassium Urine Color Urine Clarity Urine pH Ur Specific [place] Urine Protein Urine Glucose (UA) Urine Ketones Urine Blood Urine Nitrate Urine Bilirubin Urine Urobilinogen Ur Leukocyte Esterase Urine WBC (Auto) Urine RBC (Auto) Urine Opiates Screen Negative Urine Methadone Screen Negative Ur Barbiturates Screen Negative Ur Phencyclidine Scrn Negative Ur Amphetamines Screen Negative U Benzodiazepines Scrn Negative U Oth Cocaine Metabols Negative U Cannabinoids Screen Negative B-Hydroxybutyrate 05/13/18 08:42 WBC RBC Hgb Hct MCV MCH MCHC RDW Plt Count MPV Neut % (Auto) Lymph % (Auto) [place] % (Auto) Eos % (Auto) Baso % (Auto) Neut # (Auto) Lymph # (Auto) [place] # (Auto) Eos # (Auto) Baso # (Auto) PT INR APTT Puncture Site pCO2 pO2 HCO3 ABG pH ABG Total CO2 ABG O2 Saturation ABG Base Excess Karthik Test ABG Potassium A-a O2 Difference Respiratory Index Sodium Chloride Glucose Lactate Vent Mode FiO2 Inspiratory BiPAP Expiratory BiPAP Crit Value Called To Crit Value Called By Crit Value Read Back Blood Gas Notified Time Potassium Carbon Dioxide Anion Gap BUN Creatinine Est GFR ( Amer) Est GFR (Non-Af Amer) POC Glucose (mg/dL) Random Glucose Hemoglobin A1c Lactic Acid 1.0 Calcium Phosphorus Magnesium Total Bilirubin AST ALT Alkaline Phosphatase Total Creatine Kinase CK-MB (Mass) Troponin I NT-Pro-B Natriuret Pep Total Protein Albumin Globulin Albumin/Globulin Ratio TSH 3rd Generation Arterial Blood Potassium Urine Color Urine Clarity Urine pH Ur Specific [place] Urine Protein Urine Glucose (UA) Urine Ketones Urine Blood Urine Nitrate Urine Bilirubin Urine Urobilinogen Ur Leukocyte Esterase Urine WBC (Auto) Urine RBC (Auto) Urine Opiates Screen Urine Methadone Screen Ur Barbiturates Screen Ur Phencyclidine Scrn Ur Amphetamines Screen U Benzodiazepines Scrn U Oth Cocaine Metabols U Cannabinoids Screen B-Hydroxybutyrate Assessment & Plan (1) Lymphadenitis, acute Status: Acute (2) Cellulitis Status: Acute (3) Hx of CABG Status: Acute (4) Diabetes mellitus Status: Chronic (5) Non-ST elevation (NSTEMI) myocardial infarction Status: Acute - Assessment and Plan (Free Text) Assessment: 62 yo male with purulent drainage right groin - cellulitis and adenitis Ideally should have drainage in OR await cultures - consider sending additional cultures/ smears for AFB, Fungus, LGV Options limited surgically due to concurrent ACS + troponins Cont IV antibiotics
[2018-05-13] MEDS: Oxycodone/Acetaminophen 5/325 mg Tab PO PRN ×2 (14:01→20:28)
[2018-05-13] MEDS: Piperacillin/Tazobact 3.375 GM in Sodium Chloride 100 ML IVPB SCH ×2 (14:50→22:03)
--- NOTE | 2018-05-13 16:05 | RAD ---
Date of service: 05/12/2018 HISTORY: sepsis COMPARISON: 08/03/2016 FINDINGS: LUNGS: Left parahilar ill-defined opacity. Possible pneumonia. PLEURA: No significant pleural effusion identified, no pneumothorax apparent. CARDIOVASCULAR: No aortic atherosclerotic calcification present. Normal cardiac size. No pulmonary vascular congestion. OSSEOUS STRUCTURES: No significant abnormalities. VISUALIZED UPPER ABDOMEN: Normal. OTHER FINDINGS: None. IMPRESSION: Left parahilar opacity. Possible pneumonia. Follow-up advised.
[2018-05-13 16:36] LABS: CK-MB 12.2 ng/mL (0.0-3.38); TROPONIN I 6.81 ng/mL (0.00-0.120)
[2018-05-13] MEDS: (Novolin R) Insulin Human Regular 100 units/ml vial SC SCH ×3 (16:41→21:40)
--- NOTE | 2018-05-13 19:09 | CP.PCM.CON ---
History of Present Illness - History of Present Illness History of Present Illness: General Surgery Consult Note for Dr. Hubbard This 62M with a PMH of CABG, DM, and hyperlipidemia he presented with right groin pain. However he was admitted due to CHF exacerbation and ACS. Patient reports poorly controlled blood sugar at home. He reports that the groin pain started early this week. He denies any draining at the site. He reports feeling feverish when the pain is realy bad however he has not taken his temperatire reginald or to admission. He reports no changes in apetitis or bowel habits. He reports he only moves his bowels once or twice a week. Currently he has no other complaints other than chest pain and right mons pubis pain. PMH- CABG, DM, HLD PSH- CABG FH- DM (dad and brother), HTN Social- 8-10 cigs/day, denies alcohol and drug use Meds- Lopressor 50mg po daily, Glyburide/Metformin 1 tab po daily, Enalapril 10mg po daily, Plavix 75mg po daily, Lipitor 10mg po daily, Aspirin 81mg po daily All- NKDA Review of Systems - Review of Systems Review of Systems: 12 point review of symptoms conducted and no complaints other than discussed in HPI Past Patient History - Infectious Disease Hx of Infectious Diseases: None - Tetanus Immunizations Tetanus Immunization: Unknown - Past Medical History & Family History Past Medical History?: Yes - Past Social History Smoking Status: Light Smoker < 10 Cigarettes Daily - CARDIAC Hx Cardiac Disorders: Yes Hx Hypotension: Yes Other/Comment: cardiac bypass - PULMONARY Hx Respiratory Disorders: No - NEUROLOGICAL Hx Neurological Disorder: No - HEENT Hx HEENT Problems: Yes Other/Comment: left eye blurry - RENAL Hx Chronic Kidney Disease: No - ENDOCRINE/METABOLIC Hx Endocrine Disorders: Yes Hx Diabetes Mellitus Type 2: Yes - HEMATOLOGICAL/ONCOLOGICAL Hx Blood Disorders: No - INTEGUMENTARY Hx Dermatological Problems: No - MUSCULOSKELETAL/RHEUMATOLOGICAL Hx Falls: No - GASTROINTESTINAL Hx Gastrointestinal Disorders: Yes Hx Constipation: Yes - GENITOURINARY/GYNECOLOGICAL Hx Genitourinary Disorders: No - PSYCHIATRIC Hx Substance Use: No - SURGICAL HISTORY Hx Coronary Artery Bypass Graft: Yes - ANESTHESIA Hx Anesthesia: No Hx Anesthesia Reactions: No Hx Malignant Hyperthermia: No Meds Allergies/Adverse Reactions: Allergies Allergy/AdvReac Type Severity Reaction Status Date / Time No Known Allergies Allergy Verified 05/12/18 19:02 - Medications Medications: Current Medications Acetaminophen (Tylenol 325mg Tab) 650 mg PO Q6 PRN PRN Reason: Pain, Mild (1-3) Aspirin (Aspirin Chewable) 81 mg PO DAILY [facility] Last Admin: 05/13/18 10:03 Dose: 81 mg Clopidogrel Bisulfate (Plavix) 75 mg PO DAILY [facility] Last Admin: 05/13/18 10:03 Dose: 75 mg Heparin Sodium/Sodium Chloride (Heparin 34406 Units/250ml 1/2 Normal Saline) 25,000 units in 250 mls @ 7.2 mls/hr IV .Q24H PRN; Protocol PRN Reason: ADJUST RATE PER PROTOCOL Last Titration: 05/13/18 09:52 Dose: 16.1 units/kg/hr, 9.66 mls/hr Nitroglycerin/Dextrose (Nitroglycerin 50 Mg/250 Ml D5w) 50 mg in 250 mls @ 1.5 mls/hr IV .Q24H JOSE R; Protocol Last Titration: 05/13/18 09:30 Dose: 0 mcg/min, 0 mls/hr Vancomycin HCl 1,000 mg/ (Sodium Chloride) 250 mls @ 166.6 mls/hr IVPB Q12H JOSE R; Protocol Last Admin: 05/13/18 14:08 Dose: 166.6 mls/hr Piperacillin Sod/Tazobactam (Sod 3.375 gm/ Sodium Chloride) 100 mls @ 200 mls/hr IVPB Q8H JOSE R; Protocol Last Admin: 05/13/18 14:50 Dose: 200 mls/hr Insulin Human NPH (Novolin N) 14 unit SC HS [facility] Insulin Human Regular (Novolin R) 8 unit SC ACBD [facility] Last Admin: 05/13/18 16:44 Dose: 8 units Insulin Human Regular (Novolin R) 0 unit SC ACHS [facility] Last Admin: 05/13/18 16:41 Dose: Not Given Metoprolol Tartrate (Lopressor) 25 mg PO BID [facility] Last Admin: 05/13/18 17:38 Dose: 25 mg Oxycodone/Acetaminophen (Percocet 5/325 Mg Tab) 1 tab PO Q6H PRN PRN Reason: Pain, moderate (4-7) Stop: 05/16/18 12:03 Last Admin: 05/13/18 14:01 Dose: 1 tab Pantoprazole Sodium (Protonix Inj) 40 mg IVP Q12H [facility] Last Admin: 05/13/18 11:40 Dose: 40 mg Rosuvastatin Calcium (Crestor) 20 mg PO HS [facility] Last Admin: 05/13/18 01:40 Dose: 20 mg Physical Exam - Constitutional Appears: Non-toxic, No Acute Distress - Head Exam Head Exam: ATRAUMATIC, NORMOCEPHALIC - Eye Exam Eye Exam: EOMI - ENT Exam ENT Exam: Mucous Membranes Moist - Respiratory Exam Respiratory Exam: NORMAL BREATHING PATTERN - Cardiovascular Exam Cardiovascular Exam: +S1, +S2 - GI/Abdominal Exam GI & Abdominal Exam: Soft. absent: Guarding, Hernia, Rebound, Rigid, Tenderness - Exam Additional comments: right side of mons pubic swollen and indurated, tender to palpation not fluctuant not draining - Extremities Exam Extremities exam: Positive for: normal inspection - Neurological Exam Neurological exam: Alert, Oriented x3 - Psychiatric Exam Psychiatric exam: Normal Affect, Normal Mood - Skin Skin Exam: Dry, Intact Results - Vital Signs Recent Vital Signs: Last Vital Signs Temp 99.9 F H 05/13/18 16:00 Pulse 96 H 05/13/18 18:50 Resp 22 05/13/18 18:50 BP 123/62 05/13/18 18:19 Pulse Ox 93 L 05/13/18 18:50 - Labs Result Diagrams: 05/13/18 08:10 05/13/18 08:10 Labs: Laboratory Results - last 24 hr 05/12/18 05/12/18 05/12/18 14:27 21:54 21:54 WBC 15.1 H D RBC 4.97 Hgb 13.2 Hct 40.1 MCV 80.6 MCH 26.6 L MCHC 33.0 RDW 13.1 Plt Count 305 MPV 8.0 Neut % (Auto) 79.1 H Lymph % (Auto) 10.9 L Charl[place] % (Auto) 9.2 Eos % (Auto) 0.4 Baso % (Auto) 0.4 Neut # (Auto) 12.0 H Lymph # (Auto) 1.6 Charlton # (Auto) 1.4 H Eos # (Auto) 0.1 Baso # (Auto) 0.1 PT INR APTT Puncture Site Rr pCO2 33 L pO2 159 H HCO3 17.0 L ABG pH 7.28 L ABG Total CO2 16.5 L ABG O2 Saturation 95.0 ABG Base Excess -10.2 L Karthik Test Pos ABG Potassium 3.2 L A-a O2 Difference 156.0 Respiratory Index 1.0 Sodium 133.0 132 Chloride 96.0 L 92 L Glucose 590 H* Lactate 2.9 H Vent Mode Bipap FiO2 50.0 Inspiratory BiPAP 18 Expiratory BiPAP 10 Crit Value Called To Denisse call rn Crit Value Called By Keya whistle punk Crit Value Read Back Y Blood Gas Notified Time 6 Potassium 4.1 Carbon Dioxide 22 Anion Gap 23 H BUN 19 Creatinine 0.6 L Est GFR ( Amer) > 60 Est GFR (Non-Af Amer) > 60 POC Glucose (mg/dL) Random Glucose 439 H* D Hemoglobin A1c Lactic Acid Calcium 9.3 Phosphorus Magnesium Total Bilirubin 1.0 AST 34 ALT 26 Alkaline Phosphatase 90 Total Creatine Kinase CK-MB (Mass) Troponin I 1.2200 H* NT-Pro-B Natriuret Pep Total Protein 7.6 Albumin 4.1 Globulin 3.5 Albumin/Globulin Ratio 1.2 TSH 3rd Generation Arterial Blood Potassium 3.2 L Urine Color Urine Clarity Urine pH Ur Specific [place] Urine Protein Urine Glucose (UA) Urine Ketones Urine Blood Urine Nitrate Urine Bilirubin Urine Urobilinogen Ur Leukocyte Esterase Urine WBC (Auto) Urine RBC (Auto) Urine Opiates Screen Urine Methadone Screen Ur Barbiturates Screen Ur Phencyclidine Scrn Ur Amphetamines Screen U Benzodiazepines Scrn U Oth Cocaine Metabols U Cannabinoids Screen B-Hydroxybutyrate 05/12/18 05/13/18 05/13/18 23:12 00:20 00:37 WBC RBC Hgb Hct MCV MCH MCHC RDW Plt Count MPV Neut % (Auto) Lymph % (Auto) Charlton % (Auto) Eos % (Auto) Baso % (Auto) Neut # (Auto) Lymph # (Auto) Charlton # (Auto) Eos # (Auto) Baso # (Auto) PT INR APTT Puncture Site pCO2 pO2 HCO3 ABG pH ABG Total CO2 ABG O2 Saturation ABG Base Excess Karthik Test ABG Potassium A-a O2 Difference Respiratory Index Sodium Chloride Glucose Lactate Vent Mode FiO2 Inspiratory BiPAP Expiratory BiPAP Crit Value Called To Crit Value Called By Crit Value Read Back Blood Gas Notified Time Potassium Carbon Dioxide Anion Gap BUN Creatinine Est GFR ( Amer) Est GFR (Non-Af Amer) POC Glucose (mg/dL) 489 H* Random Glucose Hemoglobin A1c 12.3 H Lactic Acid 1.6 Calcium Phosphorus Magnesium Total Bilirubin AST ALT Alkaline Phosphatase Total Creatine Kinase CK-MB (Mass) Troponin I NT-Pro-B Natriuret Pep Total Protein Albumin Globulin Albumin/Globulin Ratio TSH 3rd Generation Arterial Blood Potassium Urine Color Urine Clarity Urine pH Ur Specific [place] Urine Protein Urine Glucose (UA) Urine Ketones Urine Blood Urine Nitrate Urine Bilirubin Urine Urobilinogen Ur Leukocyte Esterase Urine WBC (Auto) Urine RBC (Auto) Urine Opiates Screen Urine Methadone Screen Ur Barbiturates Screen Ur Phencyclidine Scrn Ur Amphetamines Screen U Benzodiazepines Scrn U Oth Cocaine Metabols U Cannabinoids Screen B-Hydroxybutyrate 05/13/18 05/13/18 05/13/18 00:44 01:57 01:58 WBC RBC Hgb Hct MCV MCH MCHC RDW Plt Count MPV Neut % (Auto) Lymph % (Auto) Charlton % (Auto) Eos % (Auto) Baso % (Auto) Neut # (Auto) Lymph # (Auto) Charlton # (Auto) Eos # (Auto) Baso # (Auto) PT 12.8 H INR 1.2 APTT 30 Puncture Site pCO2 pO2 HCO3 ABG pH ABG Total CO2 ABG O2 Saturation ABG Base Excess Karthik Test ABG Potassium A-a O2 Difference Respiratory Index Sodium 133 Chloride 98 Glucose Lactate Vent Mode FiO2 Inspiratory BiPAP Expiratory BiPAP Crit Value Called To Crit Value Called By Crit Value Read Back Blood Gas Notified Time Potassium 3.4 L Carbon Dioxide 20 L Anion Gap 18 BUN 17 Creatinine 0.7 L Est GFR ( Amer) > 60 Est GFR (Non-Af Amer) > 60 POC Glucose (mg/dL) Random Glucose 412 H* Hemoglobin A1c Lactic Acid Calcium 8.0 L Phosphorus 2.7 Magnesium 2.6 H Total Bilirubin 0.6 AST 47 ALT 28 Alkaline Phosphatase 100 Total Creatine Kinase 151 CK-MB (Mass) 2.76 Troponin I 1.1200 H* NT-Pro-B Natriuret Pep 1910 H Total Protein 6.7 Albumin 3.7 Globulin 3.0 Albumin/Globulin Ratio 1.2 TSH 3rd Generation 0.76 Arterial Blood Potassium Urine Color Urine Clarity Urine pH Ur Specific [place] Urine Protein Urine Glucose (UA) Urine Ketones Urine Blood Urine Nitrate Urine Bilirubin Urine Urobilinogen Ur Leukocyte Esterase Urine WBC (Auto) Urine RBC (Auto) Urine Opiates Screen Urine Methadone Screen Ur Barbiturates Screen Ur Phencyclidine Scrn Ur Amphetamines Screen U Benzodiazepines Scrn U Oth Cocaine Metabols U Cannabinoids Screen B-Hydroxybutyrate 3.34 H 05/13/18 05/13/18 05/13/18 02:18 02:37 04:55 WBC RBC Hgb Hct MCV MCH MCHC RDW Plt Count MPV Neut % (Auto) Lymph % (Auto) Charlton % (Auto) Eos % (Auto) Baso % (Auto) Neut # (Auto) Lymph # (Auto) Charl[place] # (Auto) Eos # (Auto) Baso # (Auto) PT INR APTT Puncture Site pCO2 pO2 HCO3 ABG pH ABG Total CO2 ABG O2 Saturation ABG Base Excess Karthik Test ABG Potassium A-a O2 Difference Respiratory Index Sodium Chloride Glucose Lactate Vent Mode FiO2 Inspiratory BiPAP Expiratory BiPAP Crit Value Called To Crit Value Called By Crit Value Read Back Blood Gas Notified Time Potassium Carbon Dioxide Anion Gap BUN Creatinine Est GFR ( Amer) Est GFR (Non-Af Amer) POC Glucose (mg/dL) 333 H 142 H Random Glucose Hemoglobin A1c Lactic Acid 1.6 Calcium Phosphorus Magnesium Total Bilirubin AST ALT Alkaline Phosphatase Total Creatine Kinase CK-MB (Mass) Troponin I NT-Pro-B Natriuret Pep Total Protein Albumin Globulin Albumin/Globulin Ratio TSH 3rd Generation Arterial Blood Potassium Urine Color Urine Clarity Urine pH Ur Specific [place] Urine Protein Urine Glucose (UA) Urine Ketones Urine Blood Urine Nitrate Urine Bilirubin Urine Urobilinogen Ur Leukocyte Esterase Urine WBC (Auto) Urine RBC (Auto) Urine Opiates Screen Urine Methadone Screen Ur Barbiturates Screen Ur Phencyclidine Scrn Ur Amphetamines Screen U Benzodiazepines Scrn U Oth Cocaine Metabols U Cannabinoids Screen B-Hydroxybutyrate 05/13/18 05/13/18 05/13/18 06:30 08:10 08:10 WBC RBC Hgb Hct MCV MCH MCHC RDW Plt Count MPV Neut % (Auto) Lymph % (Auto) Charl[place] % (Auto) Eos % (Auto) Baso % (Auto) Neut # (Auto) Lymph # (Auto) Charl[place] # (Auto) Eos # (Auto) Baso # (Auto) PT INR APTT Puncture Site pCO2 pO2 HCO3 ABG pH ABG Total CO2 ABG O2 Saturation ABG Base Excess Karthik Test ABG Potassium A-a O2 Difference Respiratory Index Sodium 137 Chloride 100 Glucose Lactate Vent Mode FiO2 Inspiratory BiPAP Expiratory BiPAP Crit Value Called To Crit Value Called By Crit Value Read Back Blood Gas Notified Time Potassium 3.3 L Carbon Dioxide 28 Anion Gap 13 BUN 19 Creatinine 0.7 L Est GFR ( Amer) > 60 Est GFR (Non-Af Amer) > 60 POC Glucose (mg/dL) 90 Random Glucose 91 Hemoglobin A1c Lactic Acid Calcium 8.1 L Phosphorus 3.3 Magnesium 2.3 Total Bilirubin 0.7 AST 73 H D ALT 29 Alkaline Phosphatase 78 Total Creatine Kinase 430 H CK-MB (Mass) 22.5 H Troponin I 11.5000 H* NT-Pro-B Natriuret Pep Total Protein 6.2 L Albumin 3.1 L Globulin 3.1 Albumin/Globulin Ratio 1.0 TSH 3rd Generation Arterial Blood Potassium Urine Color Straw Urine Clarity Clear Urine pH 5.0 Ur Specific [place] 1.016 Urine Protein Negative Urine Glucose (UA) 3+ H Urine Ketones 1+ H Urine Blood 1+ H Urine Nitrate Negative Urine Bilirubin Negative Urine Urobilinogen Normal Ur Leukocyte Esterase Neg Urine WBC (Auto) 1 Urine RBC (Auto) 4 H Urine Opiates Screen Urine Methadone Screen Ur Barbiturates Screen Ur Phencyclidine Scrn Ur Amphetamines Screen U Benzodiazepines Scrn U Oth Cocaine Metabols U Cannabinoids Screen B-Hydroxybutyrate 05/13/18 05/13/18 05/13/18 08:10 08:10 08:10 WBC 16.8 H RBC 4.27 L Hgb 11.3 L Hct 33.9 L MCV 79.4 L MCH 26.5 L MCHC 33.4 RDW 13.2 Plt Count 291 MPV 7.9 Neut % (Auto) 77.7 H Lymph % (Auto) 12.0 L Charl[place] % (Auto) 10.2 H Eos % (Auto) 0.0 Baso % (Auto) 0.1 Neut # (Auto) 13.1 H Lymph # (Auto) 2.0 Charl[place] # (Auto) 1.7 H Eos # (Auto) 0.0 Baso # (Auto) 0.0 PT INR APTT 33 Puncture Site pCO2 pO2 HCO3 ABG pH ABG Total CO2 ABG O2 Saturation ABG Base Excess Karthik Test ABG Potassium A-a O2 Difference Respiratory Index Sodium Chloride Glucose Lactate Vent Mode FiO2 Inspiratory BiPAP Expiratory BiPAP Crit Value Called To Crit Value Called By Crit Value Read Back Blood Gas Notified Time Potassium Carbon Dioxide Anion Gap BUN Creatinine Est GFR ( Amer) Est GFR (Non-Af Amer) POC Glucose (mg/dL) Random Glucose Hemoglobin A1c Lactic Acid Calcium Phosphorus Magnesium Total Bilirubin AST ALT Alkaline Phosphatase Total Creatine Kinase CK-MB (Mass) Troponin I NT-Pro-B Natriuret Pep Total Protein Albumin Globulin Albumin/Globulin Ratio TSH 3rd Generation Arterial Blood Potassium Urine Color Urine Clarity Urine pH Ur Specific [place] Urine Protein Urine Glucose (UA) Urine Ketones Urine Blood Urine Nitrate Urine Bilirubin Urine Urobilinogen Ur Leukocyte Esterase Urine WBC (Auto) Urine RBC (Auto) Urine Opiates Screen Negative Urine Methadone Screen Negative Ur Barbiturates Screen Negative Ur Phencyclidine Scrn Negative Ur Amphetamines Screen Negative U Benzodiazepines Scrn Negative U Oth Cocaine Metabols Negative U Cannabinoids Screen Negative B-Hydroxybutyrate 05/13/18 05/13/18 05/13/18 08:42 16:05 16:05 WBC RBC Hgb Hct MCV MCH MCHC RDW Plt Count MPV Neut % (Auto) Lymph % (Auto) Charl[place] % (Auto) Eos % (Auto) Baso % (Auto) Neut # (Auto) Lymph # (Auto) [place] # (Auto) Eos # (Auto) Baso # (Auto) PT INR APTT 55 H D Puncture Site pCO2 pO2 HCO3 ABG pH ABG Total CO2 ABG O2 Saturation ABG Base Excess Karthik Test ABG Potassium A-a O2 Difference Respiratory Index Sodium Chloride Glucose Lactate Vent Mode FiO2 Inspiratory BiPAP Expiratory BiPAP Crit Value Called To Crit Value Called By Crit Value Read Back Blood Gas Notified Time Potassium Carbon Dioxide Anion Gap BUN Creatinine Est GFR ( Amer) Est GFR (Non-Af Amer) POC Glucose (mg/dL) Random Glucose Hemoglobin A1c Lactic Acid 1.0 Calcium Phosphorus Magnesium Total Bilirubin AST ALT Alkaline Phosphatase Total Creatine Kinase 311 H CK-MB (Mass) 12.2 H Troponin I 6.8100 H* NT-Pro-B Natriuret Pep Total Protein Albumin Globulin Albumin/Globulin Ratio TSH 3rd Generation Arterial Blood Potassium Urine Color Urine Clarity Urine pH Ur Specific [place] Urine Protein Urine Glucose (UA) Urine Ketones Urine Blood Urine Nitrate Urine Bilirubin Urine Urobilinogen Ur Leukocyte Esterase Urine WBC (Auto) Urine RBC (Auto) Urine Opiates Screen Urine Methadone Screen Ur Barbiturates Screen Ur Phencyclidine Scrn Ur Amphetamines Screen U Benzodiazepines Scrn U Oth Cocaine Metabols U Cannabinoids Screen B-Hydroxybutyrate Assessment & Plan - Assessment and Plan (Free Text) Assessment: 62M with right groin cellulitis Continue managment of CHF and ACS continue ABX If descrete collection declares itself will consider inscision and drainage D/W Dr. Stevie Wright PGY3
[2018-05-13] MEDS ORDERED: (Lantus) Insulin Glargine, Recombinant SC SCH (22:00)
[2018-05-13] MEDS: (Novolin N) Insulin Human Isophane (NPH) 100 u/ml 10 ml vial SC SCH (22:03)
--- NOTE | 2018-05-14 00:13 | CON ---
DATE: 05/12/2018 LOCATION: ICU, Room #17. HISTORY OF PRESENT ILLNESS: This is a 62-year-old male with known history of type 2 diabetes, hypertension, significant cardiac vasculopathy, who presents here with an infection in the right groin and severe disabling pain and developed sudden precordial chest pain with diaphoresis and shortness of breath and was evaluated to have an acute myocardial infarction and has also now been referred for diabetic evaluation because of marked hyperglycemic accelerations as noted thereof. PAST MEDICAL HISTORY: History of type 2 diabetes, previously on a combination of glyburide/metformin at 5/500 once daily which apparently discontinued a few months ago, history of hypertension and dyslipidemia, history of coronary artery disease with previous coronary artery bypass graft surgery. FAMILY HISTORY: Positive for diabetes and hypertension. SOCIAL HISTORY: The patient has a supportive family. No known substance use. REVIEW OF SYSTEMS: Admits to generalized body weakness with progressive bouts of dizziness and lightheadedness and suboptimal energy level. Also admits to visual blurring and bifrontal headaches. Admits to sudden onset of precordial chest pain with progressive shortness of breath initially on exertion and then at rest. Also admits to variable oral intake with nausea, dyspepsia and severe right groin pain as noted. Also admits to marked polyuria, nocturia, and polydipsia. PHYSICAL EXAMINATION: GENERAL: An average-built male in no apparent distress. VITAL SIGNS: Blood pressure 150/90; pulse of 100 beats per minute, regular; temperature 99; and respirations 20. Height is 5 feet 2 inches, weight is 130 pounds. HEENT: Head, normocephalic. Eyes, anicteric with pink conjunctivae. Funduscopy not possible at this time. Ears, nose, and throat are otherwise normal. NECK: Supple. Thyroid gland is normal size. No carotid bruits or cervical adenopathy. CARDIOPULMONARY: Adynamic precordium, S1 and S2 are rapid and regular. LUNGS: Clear to auscultation. ABDOMEN: Flat, soft with positive bowel sounds. EXTREMITIES: No peripheral edema. Pulses are +2 bilaterally. LABORATORY DATA: Chemistries showed a BUN of 19, sodium 137, potassium 3.3, chloride 100, CO2 of 28, glucose 91, and creatinine 0.7. His troponin is 11.5. His glucose levels have ranged from 333 to 412 mg/dL. His A1c is 12.3%. ASSESSMENT: This is a 62-year-old male with uncontrolled and decompensated type 2 insulin-requiring diabetes, presenting here with marked hyperglycemic accelerations and hyperosmolar state, clearly insulin-requiring at this time, with a supervening acute myocardial infarction on the background of significant coronary artery disease and vasculopathy. PLAN OF MANAGEMENT: Because of his financial constraints and lack of medical insurance, we will switch him over to more affordable conventional insulin preparations as ordered. We will start him with Novolin NPH given as 14 units at bedtime to start tonight. We will add Novolin regular insulin given as 8 units b.i.d. before breakfast and dinner to start today. We will modify the coverage scale to obviate hypoglycemia, and detailed orders have been given. We will obtain serial chemistries and supplement accordingly as needed. We will follow. Yeni Mcmahan MD
[2018-05-14] MEDS: Oxycodone/Acetaminophen 5/325 mg Tab PO PRN ×3 (02:48→19:38)
[2018-05-14] MEDS: Heparin25000 units/250ml 1/2NS 25,000 UNITS/250 ML BAG IV PRN (03:22)
[2018-05-14] MEDS: Piperacillin/Tazobact 3.375 GM in Sodium Chloride 100 ML IVPB SCH ×3 (05:41→21:30)
[2018-05-14 05:52] LABS: BASO # 0.1 K/uL (0.0-0.2); BASO % 0.5 % (0.0-2.0); EOS % 0.2 % (0.0-4.0); HEMOGLOBIN 12.2 g/dL (12.0-18.0); LYMPH # 2.8 K/uL (1.0-4.3); LYMPH % 15.8 % (20.0-40.0); MEAN CELL VOLUME 79.4 fL (80.0-94.0); MEAN CORPUSCULAR HEMOGLOBIN 26.8 pg (27.0-31.0); MEAN CORPUSCULAR HGB CONC 33.7 g/dL (33.0-37.0); MEAN PLATELET VOLUME 7.7 fL (7.2-11.7); MONO # 1.7 K/uL (0.0-0.8); MONO % 9.3 % (0.0-10.0); NEUT # 13.3 K/uL (1.8-7.0); NEUT % 74.2 % (50.0-75.0); RBC 4.55 Mil/uL (4.40-5.90); RED CELL DISTRIBUTION WIDTH 12.8 % (11.5-14.5); WHITE BLOOD COUNT 17.9 K/uL (4.8-10.8)
[2018-05-14 06:09] LABS: ALBUMIN 3.3 g/dL (3.5-5.0); ALT/SGPT 33 U/L (21-72); AST/SGOT 50 U/L (17-59); BLOOD UREA NITROGEN 24 mg/dL (9-20); CALCIUM 8.1 mg/dl (8.6-10.4); GFR NON-AFRICAN AMERICAN > 60
[2018-05-14] MEDS: (Novolin R) Insulin Human Regular 100 units/ml vial SC SCH ×6 (07:56→22:04)
--- NOTE | 2018-05-14 08:08 | CP.CCUPN ---
CCU Subjective - Physician Review Subjective (Free Text): 05/14/18 11:26 Patient seen and examined at bedside, no acute events overnight. Patient is complaining of pain in his right groin, otherwise no other complaints. He denies chest pain, shortness of breath, or abdominal pain. Critical Care Time Spent (in minutes): 35 CCU Objective - Vital Signs / Intake & Output Vital Signs (Last 4 hours): Vital Signs Temp Pulse Resp BP Pulse Ox 05/14/18 08:00 99.5 F 99 H 29 H 90 L 05/14/18 07:00 100 H 33 H 90 L 05/14/18 06:19 146/87 05/14/18 06:00 100 H 25 H 92 L 05/14/18 05:19 133/64 05/14/18 05:00 91 H 21 93 L 05/14/18 04:19 124/62 Intake and Output (Last 8hrs): Intake & Output 05/13/18 05/14/18 05/14/18 22:59 06:59 14:59 Intake Total 876.8 827.8 249.2 Output Total 300 250 Balance 576.8 577.8 249.2 Weight 132 lb 4.438 oz Intake: IV 201 Intake, IV Amount 226.8 426.8 49.2 Left Antecubital 100 350 10 Left Hand 10 Left Wrist 76.8 76.8 19.2 Right Antecubital 50 10 Oral 650 200 200 Output: Urine 300 250 Urine, Voided 300 250 - Physical Exam Head: Positive for: Atraumatic, Normocephalic Pupils: Positive for: PERRL Extroacular Muscles: Positive for: EOMI Conjunctiva: Positive for: Normal Mouth: Positive for: Dry Respiratory/Chest: Positive for: Rhonchi, Tachypneic, Other (Inspiratory crackles heard bilaterally). Negative for: Clear to Auscultation, Respiratory Distress, Accessory Muscle Use, Wheezes, Rales, Retracting Cardiovascular: Positive for: Regular Rate and Rhythm, Normal S1, S2. Negative for: Murmurs, Rub, Gallop Abdomen: Positive for: Normal Bowel Sounds. Negative for: Tenderness, Distention, Peritoneal Signs, Guarding Upper Extremity: Positive for: Normal Inspection Lower Extremity: Positive for: Normal Inspection Neurological: Positive for: GCS=15, CN II-XII Intact Skin: Positive for: Abscess (Right Groin area with induration ~ 6 cm, with central circular area (roughly 2 to 3 cm) that is erythematous and raised with central camara all of which is slightly tender to the touch) - Medications Active Medications: Active Medications Generic Name Dose Route Start Last Admin Trade Name Freq PRN Reason Stop Dose Admin Acetaminophen 650 mg 05/13/18 10:08 Tylenol 325mg Tab PO Q6 PRN Pain, Mild (1-3) Aspirin 81 mg 05/13/18 10:00 05/13/18 10:03 Aspirin Chewable PO 81 mg DAILY JOSE R Administration Clopidogrel Bisulfate 75 mg 05/13/18 10:00 05/13/18 10:03 Plavix PO 75 mg DAILY JOSE R Administration Heparin Sodium/Sodium Chloride 25,000 units in 250 mls @ 7.2 mls/hr 05/12/18 22:47 05/14/18 03:22 Heparin 95051 Units/250ml 1/2 Normal Saline IV 16.1 units/kg/hr .Q24H PRN 9.66 mls/hr ADJUST RATE PER PROTOCOL Administration Protocol 12 UNITS/KG/HR Nitroglycerin/Dextrose 50 mg in 250 mls @ 1.5 mls/hr 05/12/18 23:45 05/13/18 09:30 Nitroglycerin 50 Mg/250 Ml D5w IV 0 mcg/min .Q24H JOSE R 0 mls/hr Titration Protocol 5 MCG/MIN Vancomycin HCl 1,000 mg/ 250 mls @ 166.6 mls/hr 05/13/18 14:00 05/14/18 01:56 Sodium Chloride IVPB 166.6 mls/hr Q12H JOSE R Administration Protocol Piperacillin Sod/Tazobactam 100 mls @ 200 mls/hr 05/13/18 14:00 05/14/18 05:41 Sod 3.375 gm/ Sodium Chloride IVPB 200 mls/hr Q8H JOSE R Administration Protocol Insulin Human NPH 14 unit 05/13/18 22:00 05/13/18 22:03 Novolin N SC 14 u HS JOSE R Administration Insulin Human Regular 8 unit 05/13/18 16:30 05/13/18 16:44 Novolin R SC 8 units ACBD JOSE R Administration Insulin Human Regular 0 unit 05/13/18 16:30 05/14/18 07:56 Novolin R SC Not Given ACHS JOSE R Metoprolol Tartrate 25 mg 05/13/18 10:00 05/13/18 17:38 Lopressor PO 25 mg BID JOSE R Administration Oxycodone/Acetaminophen 1 tab 05/13/18 12:02 05/14/18 02:48 Percocet 5/325 Mg Tab PO 05/16/18 12:03 1 tab Q6H PRN Administration Pain, moderate (4-7) Pantoprazole Sodium 40 mg 05/13/18 00:30 05/14/18 00:47 Protonix Inj IVP 40 mg Q12H JOSE R Administration Rosuvastatin Calcium 20 mg 05/12/18 23:45 05/13/18 22:03 Crestor PO 20 mg HS JOSE R Administration - Patient Studies Lab Studies: Microbiology Studies 05/12/18 21:30 Blood Culture - Preliminary Blood NO GROWTH AFTER 24 HOURS 05/13/18 00:19 Gram Stain - Final Abscess - Inguinal Lab Studies 05/14/18 05/14/18 05/14/18 Range/Units 05:47 05:47 05:47 WBC 17.9 H (4.8-10.8) K/uL RBC 4.55 (4.40-5.90) Mil/uL Hgb 12.2 (12.0-18.0) g/dL Hct 36.1 (35.0-51.0) % MCV 79.4 L (80.0-94.0) fL MCH 26.8 L (27.0-31.0) pg MCHC 33.7 (33.0-37.0) g/dL RDW 12.8 (11.5-14.5) % Plt Count 336 (130-400) K/uL MPV 7.7 (7.2-11.7) fL Neut % (Auto) 74.2 (50.0-75.0) % Lymph % (Auto) 15.8 L (20.0-40.0) % [place] % (Auto) 9.3 (0.0-10.0) % Eos % (Auto) 0.2 (0.0-4.0) % Baso % (Auto) 0.5 (0.0-2.0) % Neut # (Auto) 13.3 H (1.8-7.0) K/uL Lymph # (Auto) 2.8 (1.0-4.3) K/uL [place] # (Auto) 1.7 H (0.0-0.8) K/uL Eos # (Auto) 0.0 (0.0-0.7) K/uL Baso # (Auto) 0.1 (0.0-0.2) K/uL APTT 52 H (21-34) SECONDS Sodium 134 (132-148) mmol/L Potassium 3.6 (3.6-5.2) mmol/L Chloride 99 (98-107) mmol/L Carbon Dioxide 24 (22-30) mmol/L Anion Gap 15 (10-20) BUN 24 H (9-20) mg/dL Creatinine 0.6 L (0.8-1.5) mg/dL Est GFR ( Amer) > 60 Est GFR (Non-Af Amer) > 60 POC Glucose (mg/dL) (65-110) mg/dL Random Glucose 122 H (75-110) mg/dL Hemoglobin A1c (4.2-6.5) % Lactic Acid (0.7-2.1) mmol/L Calcium 8.1 L (8.6-10.4) mg/dl Phosphorus 2.5 (2.5-4.5) mg/dL Magnesium 2.3 (1.6-2.3) mg/dL Total Bilirubin 0.5 (0.2-1.3) mg/dL AST 50 (17-59) U/L ALT 33 (21-72) U/L Alkaline Phosphatase 98 (38-126) U/L Total Creatine Kinase (55-170) U/L CK-MB (Mass) (0.0-3.38) ng/mL Troponin I (0.00-0.120) ng/mL Total Protein 6.5 (6.3-8.3) g/dL Albumin 3.3 L (3.5-5.0) g/dL Globulin 3.2 (2.2-3.9) gm/dL Albumin/Globulin Ratio 1.0 (1.0-2.1) Urine Color (YELLOW) Urine Clarity (Clear) Urine pH (5.0-8.0) Ur Specific [place] (1.003-1.030) Urine Protein (NEGATIVE) mg/dL Urine Glucose (UA) (Normal) mg/dL Urine Ketones (NEGATIVE) mg/dL Urine Blood (NEGATIVE) Urine Nitrate (NEGATIVE) Urine Bilirubin (NEGATIVE) Urine Urobilinogen (0.2-1.0) mg/dL Ur Leukocyte Esterase (Negative) Rajesh/uL Urine WBC (Auto) (0-5) /hpf Urine RBC (Auto) (0-3) /hpf Urine Opiates Screen (NEGATIVE) Urine Methadone Screen (NEGATIVE) Ur Barbiturates Screen (NEGATIVE) Ur Phencyclidine Scrn (NEGATIVE) Ur Amphetamines Screen (NEGATIVE) U Benzodiazepines Scrn (NEGATIVE) U Oth Cocaine Metabols (NEGATIVE) U Cannabinoids Screen (NEGATIVE) 05/13/18 05/13/18 05/13/18 Range/Units 22:13 21:17 16:16 WBC (4.8-10.8) K/uL RBC (4.40-5.90) Mil/uL Hgb (12.0-18.0) g/dL Hct (35.0-51.0) % MCV (80.0-94.0) fL MCH (27.0-31.0) pg MCHC (33.0-37.0) g/dL RDW (11.5-14.5) % Plt Count (130-400) K/uL MPV (7.2-11.7) fL Neut % (Auto) (50.0-75.0) % Lymph % (Auto) (20.0-40.0) % [place] % (Auto) (0.0-10.0) % Eos % (Auto) (0.0-4.0) % Baso % (Auto) (0.0-2.0) % Neut # (Auto) (1.8-7.0) K/uL Lymph # (Auto) (1.0-4.3) K/uL [place] # (Auto) (0.0-0.8) K/uL Eos # (Auto) (0.0-0.7) K/uL Baso # (Auto) (0.0-0.2) K/uL APTT 53 H (21-34) SECONDS Sodium (132-148) mmol/L Potassium (3.6-5.2) mmol/L Chloride (98-107) mmol/L Carbon Dioxide (22-30) mmol/L Anion Gap (10-20) BUN (9-20) mg/dL Creatinine (0.8-1.5) mg/dL Est GFR ( Amer) Est GFR (Non-Af Amer) POC Glucose (mg/dL) 131 H 182 H (65-110) mg/dL Random Glucose (75-110) mg/dL Hemoglobin A1c (4.2-6.5) % Lactic Acid (0.7-2.1) mmol/L Calcium (8.6-10.4) mg/dl Phosphorus (2.5-4.5) mg/dL Magnesium (1.6-2.3) mg/dL Total Bilirubin (0.2-1.3) mg/dL AST (17-59) U/L ALT (21-72) U/L Alkaline Phosphatase (38-126) U/L Total Creatine Kinase (55-170) U/L CK-MB (Mass) (0.0-3.38) ng/mL Troponin I (0.00-0.120) ng/mL Total Protein (6.3-8.3) g/dL Albumin (3.5-5.0) g/dL Globulin (2.2-3.9) gm/dL Albumin/Globulin Ratio (1.0-2.1) Urine Color (YELLOW) Urine Clarity (Clear) Urine pH (5.0-8.0) Ur Specific [place] (1.003-1.030) Urine Protein (NEGATIVE) mg/dL Urine Glucose (UA) (Normal) mg/dL Urine Ketones (NEGATIVE) mg/dL Urine Blood (NEGATIVE) Urine Nitrate (NEGATIVE) Urine Bilirubin (NEGATIVE) Urine Urobilinogen (0.2-1.0) mg/dL Ur Leukocyte Esterase (Negative) Rajesh/uL Urine WBC (Auto) (0-5) /hpf Urine RBC (Auto) (0-3) /hpf Urine Opiates Screen (NEGATIVE) Urine Methadone Screen (NEGATIVE) Ur Barbiturates Screen (NEGATIVE) Ur Phencyclidine Scrn (NEGATIVE) Ur Amphetamines Screen (NEGATIVE) U Benzodiazepines Scrn (NEGATIVE) U Oth Cocaine Metabols (NEGATIVE) U Cannabinoids Screen (NEGATIVE) 05/13/18 05/13/18 05/13/18 Range/Units 16:05 16:05 11:48 WBC (4.8-10.8) K/uL RBC (4.40-5.90) Mil/uL Hgb (12.0-18.0) g/dL Hct (35.0-51.0) % MCV (80.0-94.0) fL MCH (27.0-31.0) pg MCHC (33.0-37.0) g/dL RDW (11.5-14.5) % Plt Count (130-400) K/uL MPV (7.2-11.7) fL Neut % (Auto) (50.0-75.0) % Lymph % (Auto) (20.0-40.0) % [place] % (Auto) (0.0-10.0) % Eos % (Auto) (0.0-4.0) % Baso % (Auto) (0.0-2.0) % Neut # (Auto) (1.8-7.0) K/uL Lymph # (Auto) (1.0-4.3) K/uL [place] # (Auto) (0.0-0.8) K/uL Eos # (Auto) (0.0-0.7) K/uL Baso # (Auto) (0.0-0.2) K/uL APTT 55 H D (21-34) SECONDS Sodium (132-148) mmol/L Potassium (3.6-5.2) mmol/L Chloride (98-107) mmol/L Carbon Dioxide (22-30) mmol/L Anion Gap (10-20) BUN (9-20) mg/dL Creatinine (0.8-1.5) mg/dL Est GFR ( Amer) Est GFR (Non-Af Amer) POC Glucose (mg/dL) 207 H (65-110) mg/dL Random Glucose (75-110) mg/dL Hemoglobin A1c (4.2-6.5) % Lactic Acid (0.7-2.1) mmol/L Calcium (8.6-10.4) mg/dl Phosphorus (2.5-4.5) mg/dL Magnesium (1.6-2.3) mg/dL Total Bilirubin (0.2-1.3) mg/dL AST (17-59) U/L ALT (21-72) U/L Alkaline Phosphatase (38-126) U/L Total Creatine Kinase 311 H (55-170) U/L CK-MB (Mass) 12.2 H (0.0-3.38) ng/mL Troponin I 6.8100 H* (0.00-0.120) ng/mL Total Protein (6.3-8.3) g/dL Albumin (3.5-5.0) g/dL Globulin (2.2-3.9) gm/dL Albumin/Globulin Ratio (1.0-2.1) Urine Color (YELLOW) Urine Clarity (Clear) Urine pH (5.0-8.0) Ur Specific [place] (1.003-1.030) Urine Protein (NEGATIVE) mg/dL Urine Glucose (UA) (Normal) mg/dL Urine Ketones (NEGATIVE) mg/dL Urine Blood (NEGATIVE) Urine Nitrate (NEGATIVE) Urine Bilirubin (NEGATIVE) Urine Urobilinogen (0.2-1.0) mg/dL Ur Leukocyte Esterase (Negative) Rajesh/uL Urine WBC (Auto) (0-5) /hpf Urine RBC (Auto) (0-3) /hpf Urine Opiates Screen (NEGATIVE) Urine Methadone Screen (NEGATIVE) Ur Barbiturates Screen (NEGATIVE) Ur Phencyclidine Scrn (NEGATIVE) Ur Amphetamines Screen (NEGATIVE) U Benzodiazepines Scrn (NEGATIVE) U Oth Cocaine Metabols (NEGATIVE) U Cannabinoids Screen (NEGATIVE) 05/13/18 05/13/18 05/13/18 Range/Units 09:19 08:42 08:21 WBC (4.8-10.8) K/uL RBC (4.40-5.90) Mil/uL Hgb (12.0-18.0) g/dL Hct (35.0-51.0) % MCV (80.0-94.0) fL MCH (27.0-31.0) pg MCHC (33.0-37.0) g/dL RDW (11.5-14.5) % Plt Count (130-400) K/uL MPV (7.2-11.7) fL Neut % (Auto) (50.0-75.0) % Lymph % (Auto) (20.0-40.0) % [place] % (Auto) (0.0-10.0) % Eos % (Auto) (0.0-4.0) % Baso % (Auto) (0.0-2.0) % Neut # (Auto) (1.8-7.0) K/uL Lymph # (Auto) (1.0-4.3) K/uL [place] # (Auto) (0.0-0.8) K/uL Eos # (Auto) (0.0-0.7) K/uL Baso # (Auto) (0.0-0.2) K/uL APTT (21-34) SECONDS Sodium (132-148) mmol/L Potassium (3.6-5.2) mmol/L Chloride (98-107) mmol/L Carbon Dioxide (22-30) mmol/L Anion Gap (10-20) BUN (9-20) mg/dL Creatinine (0.8-1.5) mg/dL Est GFR ( Amer) Est GFR (Non-Af Amer) POC Glucose (mg/dL) 134 H 120 H (65-110) mg/dL Random Glucose (75-110) mg/dL Hemoglobin A1c (4.2-6.5) % Lactic Acid 1.0 (0.7-2.1) mmol/L Calcium (8.6-10.4) mg/dl Phosphorus (2.5-4.5) mg/dL Magnesium (1.6-2.3) mg/dL Total Bilirubin (0.2-1.3) mg/dL AST (17-59) U/L ALT (21-72) U/L Alkaline Phosphatase (38-126) U/L Total Creatine Kinase (55-170) U/L CK-MB (Mass) (0.0-3.38) ng/mL Troponin I (0.00-0.120) ng/mL Total Protein (6.3-8.3) g/dL Albumin (3.5-5.0) g/dL Globulin (2.2-3.9) gm/dL Albumin/Globulin Ratio (1.0-2.1) Urine Color (YELLOW) Urine Clarity (Clear) Urine pH (5.0-8.0) Ur Specific [place] (1.003-1.030) Urine Protein (NEGATIVE) mg/dL Urine Glucose (UA) (Normal) mg/dL Urine Ketones (NEGATIVE) mg/dL Urine Blood (NEGATIVE) Urine Nitrate (NEGATIVE) Urine Bilirubin (NEGATIVE) Urine Urobilinogen (0.2-1.0) mg/dL Ur Leukocyte Esterase (Negative) Rajesh/uL Urine WBC (Auto) (0-5) /hpf Urine RBC (Auto) (0-3) /hpf Urine Opiates Screen (NEGATIVE) Urine Methadone Screen (NEGATIVE) Ur Barbiturates Screen (NEGATIVE) Ur Phencyclidine Scrn (NEGATIVE) Ur Amphetamines Screen (NEGATIVE) U Benzodiazepines Scrn (NEGATIVE) U Oth Cocaine Metabols (NEGATIVE) U Cannabinoids Screen (NEGATIVE) 05/13/18 05/13/18 05/13/18 Range/Units 08:10 08:10 08:10 WBC 16.8 H (4.8-10.8) K/uL RBC 4.27 L (4.40-5.90) Mil/uL Hgb 11.3 L (12.0-18.0) g/dL Hct 33.9 L (35.0-51.0) % MCV 79.4 L (80.0-94.0) fL MCH 26.5 L (27.0-31.0) pg MCHC 33.4 (33.0-37.0) g/dL RDW 13.2 (11.5-14.5) % Plt Count 291 (130-400) K/uL MPV 7.9 (7.2-11.7) fL Neut % (Auto) 77.7 H (50.0-75.0) % Lymph % (Auto) 12.0 L (20.0-40.0) % [place] % (Auto) 10.2 H (0.0-10.0) % Eos % (Auto) 0.0 (0.0-4.0) % Baso % (Auto) 0.1 (0.0-2.0) % Neut # (Auto) 13.1 H (1.8-7.0) K/uL Lymph # (Auto) 2.0 (1.0-4.3) K/uL [place] # (Auto) 1.7 H (0.0-0.8) K/uL Eos # (Auto) 0.0 (0.0-0.7) K/uL Baso # (Auto) 0.0 (0.0-0.2) K/uL APTT 33 (21-34) SECONDS Sodium (132-148) mmol/L Potassium (3.6-5.2) mmol/L Chloride (98-107) mmol/L Carbon Dioxide (22-30) mmol/L Anion Gap (10-20) BUN (9-20) mg/dL Creatinine (0.8-1.5) mg/dL Est GFR ( Amer) Est GFR (Non-Af Amer) POC Glucose (mg/dL) (65-110) mg/dL Random Glucose (75-110) mg/dL Hemoglobin A1c (4.2-6.5) % Lactic Acid (0.7-2.1) mmol/L Calcium (8.6-10.4) mg/dl Phosphorus (2.5-4.5) mg/dL Magnesium (1.6-2.3) mg/dL Total Bilirubin (0.2-1.3) mg/dL AST (17-59) U/L ALT (21-72) U/L Alkaline Phosphatase (38-126) U/L Total Creatine Kinase (55-170) U/L CK-MB (Mass) (0.0-3.38) ng/mL Troponin I (0.00-0.120) ng/mL Total Protein (6.3-8.3) g/dL Albumin (3.5-5.0) g/dL Globulin (2.2-3.9) gm/dL Albumin/Globulin Ratio (1.0-2.1) Urine Color (YELLOW) Urine Clarity (Clear) Urine pH (5.0-8.0) Ur Specific [place] (1.003-1.030) Urine Protein (NEGATIVE) mg/dL Urine Glucose (UA) (Normal) mg/dL Urine Ketones (NEGATIVE) mg/dL Urine Blood (NEGATIVE) Urine Nitrate (NEGATIVE) Urine Bilirubin (NEGATIVE) Urine Urobilinogen (0.2-1.0) mg/dL Ur Leukocyte Esterase (Negative) Rajesh/uL Urine WBC (Auto) (0-5) /hpf Urine RBC (Auto) (0-3) /hpf Urine Opiates Screen Negative (NEGATIVE) Urine Methadone Screen Negative (NEGATIVE) Ur Barbiturates Screen Negative (NEGATIVE) Ur Phencyclidine Scrn Negative (NEGATIVE) Ur Amphetamines Screen Negative (NEGATIVE) U Benzodiazepines Scrn Negative (NEGATIVE) U Oth Cocaine Metabols Negative (NEGATIVE) U Cannabinoids Screen Negative (NEGATIVE) 05/13/18 05/13/18 05/13/18 Range/Units 08:10 08:10 07:05 WBC (4.8-10.8) K/uL RBC (4.40-5.90) Mil/uL Hgb (12.0-18.0) g/dL Hct (35.0-51.0) % MCV (80.0-94.0) fL MCH (27.0-31.0) pg MCHC (33.0-37.0) g/dL RDW (11.5-14.5) % Plt Count (130-400) K/uL MPV (7.2-11.7) fL Neut % (Auto) (50.0-75.0) % Lymph % (Auto) (20.0-40.0) % [place] % (Auto) (0.0-10.0) % Eos % (Auto) (0.0-4.0) % Baso % (Auto) (0.0-2.0) % Neut # (Auto) (1.8-7.0) K/uL Lymph # (Auto) (1.0-4.3) K/uL [place] # (Auto) (0.0-0.8) K/uL Eos # (Auto) (0.0-0.7) K/uL Baso # (Auto) (0.0-0.2) K/uL APTT (21-34) SECONDS Sodium 137 (132-148) mmol/L Potassium 3.3 L (3.6-5.2) mmol/L Chloride 100 (98-107) mmol/L Carbon Dioxide 28 (22-30) mmol/L Anion Gap 13 (10-20) BUN 19 (9-20) mg/dL Creatinine 0.7 L (0.8-1.5) mg/dL Est GFR ( Amer) > 60 Est GFR (Non-Af Amer) > 60 POC Glucose (mg/dL) 91 (65-110) mg/dL Random Glucose 91 (75-110) mg/dL Hemoglobin A1c (4.2-6.5) % Lactic Acid (0.7-2.1) mmol/L Calcium 8.1 L (8.6-10.4) mg/dl Phosphorus 3.3 (2.5-4.5) mg/dL Magnesium 2.3 (1.6-2.3) mg/dL Total Bilirubin 0.7 (0.2-1.3) mg/dL AST 73 H D (17-59) U/L ALT 29 (21-72) U/L Alkaline Phosphatase 78 (38-126) U/L Total Creatine Kinase 430 H (55-170) U/L CK-MB (Mass) 22.5 H (0.0-3.38) ng/mL Troponin I 11.5000 H* (0.00-0.120) ng/mL Total Protein 6.2 L (6.3-8.3) g/dL Albumin 3.1 L (3.5-5.0) g/dL Globulin 3.1 (2.2-3.9) gm/dL Albumin/Globulin Ratio 1.0 (1.0-2.1) Urine Color Straw (YELLOW) Urine Clarity Clear (Clear) Urine pH 5.0 (5.0-8.0) Ur Specific [place] 1.016 (1.003-1.030) Urine Protein Negative (NEGATIVE) mg/dL Urine Glucose (UA) 3+ H (Normal) mg/dL Urine Ketones 1+ H (NEGATIVE) mg/dL Urine Blood 1+ H (NEGATIVE) Urine Nitrate Negative (NEGATIVE) Urine Bilirubin Negative (NEGATIVE) Urine Urobilinogen Normal (0.2-1.0) mg/dL Ur Leukocyte Esterase Neg (Negative) Rajesh/uL Urine WBC (Auto) 1 (0-5) /hpf Urine RBC (Auto) 4 H (0-3) /hpf Urine Opiates Screen (NEGATIVE) Urine Methadone Screen (NEGATIVE) Ur Barbiturates Screen (NEGATIVE) Ur Phencyclidine Scrn (NEGATIVE) Ur Amphetamines Screen (NEGATIVE) U Benzodiazepines Scrn (NEGATIVE) U Oth Cocaine Metabols (NEGATIVE) U Cannabinoids Screen (NEGATIVE) 05/13/18 05/13/18 Range/Units 07:02 00:37 WBC (4.8-10.8) K/uL RBC (4.40-5.90) Mil/uL Hgb (12.0-18.0) g/dL Hct (35.0-51.0) % MCV (80.0-94.0) fL MCH (27.0-31.0) pg MCHC (33.0-37.0) g/dL RDW (11.5-14.5) % Plt Count (130-400) K/uL MPV (7.2-11.7) fL Neut % (Auto) (50.0-75.0) % Lymph % (Auto) (20.0-40.0) % [place] % (Auto) (0.0-10.0) % Eos % (Auto) (0.0-4.0) % Baso % (Auto) (0.0-2.0) % Neut # (Auto) (1.8-7.0) K/uL Lymph # (Auto) (1.0-4.3) K/uL [place] # (Auto) (0.0-0.8) K/uL Eos # (Auto) (0.0-0.7) K/uL Baso # (Auto) (0.0-0.2) K/uL APTT (21-34) SECONDS Sodium (132-148) mmol/L Potassium (3.6-5.2) mmol/L Chloride (98-107) mmol/L Carbon Dioxide (22-30) mmol/L Anion Gap (10-20) BUN (9-20) mg/dL Creatinine (0.8-1.5) mg/dL Est GFR ( Amer) Est GFR (Non-Af Amer) POC Glucose (mg/dL) 61 L (65-110) mg/dL Random Glucose (75-110) mg/dL Hemoglobin A1c 12.3 H (4.2-6.5) % Lactic Acid (0.7-2.1) mmol/L Calcium (8.6-10.4) mg/dl Phosphorus (2.5-4.5) mg/dL Magnesium (1.6-2.3) mg/dL Total Bilirubin (0.2-1.3) mg/dL AST (17-59) U/L ALT (21-72) U/L Alkaline Phosphatase (38-126) U/L Total Creatine Kinase (55-170) U/L CK-MB (Mass) (0.0-3.38) ng/mL Troponin I (0.00-0.120) ng/mL Total Protein (6.3-8.3) g/dL Albumin (3.5-5.0) g/dL Globulin (2.2-3.9) gm/dL Albumin/Globulin Ratio (1.0-2.1) Urine Color (YELLOW) Urine Clarity (Clear) Urine pH (5.0-8.0) Ur Specific [place] (1.003-1.030) Urine Protein (NEGATIVE) mg/dL Urine Glucose (UA) (Normal) mg/dL Urine Ketones (NEGATIVE) mg/dL Urine Blood (NEGATIVE) Urine Nitrate (NEGATIVE) Urine Bilirubin (NEGATIVE) Urine Urobilinogen (0.2-1.0) mg/dL Ur Leukocyte Esterase (Negative) Rajesh/uL Urine WBC (Auto) (0-5) /hpf Urine RBC (Auto) (0-3) /hpf Urine Opiates Screen (NEGATIVE) Urine Methadone Screen (NEGATIVE) Ur Barbiturates Screen (NEGATIVE) Ur Phencyclidine Scrn (NEGATIVE) Ur Amphetamines Screen (NEGATIVE) U Benzodiazepines Scrn (NEGATIVE) U Oth Cocaine Metabols (NEGATIVE) U Cannabinoids Screen (NEGATIVE) Laboratory Results - last 24 hr 05/13/18 05/13/18 05/13/18 00:37 07:02 07:05 WBC RBC Hgb Hct MCV MCH MCHC RDW Plt Count MPV Neut % (Auto) Lymph % (Auto) [place] % (Auto) Eos % (Auto) Baso % (Auto) Neut # (Auto) Lymph # (Auto) [place] # (Auto) Eos # (Auto) Baso # (Auto) APTT Sodium Potassium Chloride Carbon Dioxide Anion Gap BUN Creatinine Est GFR ( Amer) Est GFR (Non-Af Amer) POC Glucose (mg/dL) 61 L 91 Random Glucose Hemoglobin A1c 12.3 H Lactic Acid Calcium Phosphorus Magnesium Total Bilirubin AST ALT Alkaline Phosphatase Total Creatine Kinase CK-MB (Mass) Troponin I Total Protein Albumin Globulin Albumin/Globulin Ratio Urine Color Urine Clarity Urine pH Ur Specific [place] Urine Protein Urine Glucose (UA) Urine Ketones Urine Blood Urine Nitrate Urine Bilirubin Urine Urobilinogen Ur Leukocyte Esterase Urine WBC (Auto) Urine RBC (Auto) Urine Opiates Screen Urine Methadone Screen Ur Barbiturates Screen Ur Phencyclidine Scrn Ur Amphetamines Screen U Benzodiazepines Scrn U Oth Cocaine Metabols U Cannabinoids Screen 05/13/18 05/13/18 05/13/18 08:10 08:10 08:10 WBC RBC Hgb Hct MCV MCH MCHC RDW Plt Count MPV Neut % (Auto) Lymph % (Auto) [place] % (Auto) Eos % (Auto) Baso % (Auto) Neut # (Auto) Lymph # (Auto) [place] # (Auto) Eos # (Auto) Baso # (Auto) APTT Sodium 137 Potassium 3.3 L Chloride 100 Carbon Dioxide 28 Anion Gap 13 BUN 19 Creatinine 0.7 L Est GFR ( Amer) > 60 Est GFR (Non-Af Amer) > 60 POC Glucose (mg/dL) Random Glucose 91 Hemoglobin A1c Lactic Acid Calcium 8.1 L Phosphorus 3.3 Magnesium 2.3 Total Bilirubin 0.7 AST 73 H D ALT 29 Alkaline Phosphatase 78 Total Creatine Kinase 430 H CK-MB (Mass) 22.5 H Troponin I 11.5000 H* Total Protein 6.2 L Albumin 3.1 L Globulin 3.1 Albumin/Globulin Ratio 1.0 Urine Color Straw Urine Clarity Clear Urine pH 5.0 Ur Specific [place] 1.016 Urine Protein Negative Urine Glucose (UA) 3+ H Urine Ketones 1+ H Urine Blood 1+ H Urine Nitrate Negative Urine Bilirubin Negative Urine Urobilinogen Normal Ur Leukocyte Esterase Neg Urine WBC (Auto) 1 Urine RBC (Auto) 4 H Urine Opiates Screen Negative Urine Methadone Screen Negative Ur Barbiturates Screen Negative Ur Phencyclidine Scrn Negative Ur Amphetamines Screen Negative U Benzodiazepines Scrn Negative U Oth Cocaine Metabols Negative U Cannabinoids Screen Negative 05/13/18 05/13/18 05/13/18 08:10 08:10 08:21 WBC 16.8 H RBC 4.27 L Hgb 11.3 L Hct 33.9 L MCV 79.4 L MCH 26.5 L MCHC 33.4 RDW 13.2 Plt Count 291 MPV 7.9 Neut % (Auto) 77.7 H Lymph % (Auto) 12.0 L [place] % (Auto) 10.2 H Eos % (Auto) 0.0 Baso % (Auto) 0.1 Neut # (Auto) 13.1 H Lymph # (Auto) 2.0 [place] # (Auto) 1.7 H Eos # (Auto) 0.0 Baso # (Auto) 0.0 APTT 33 Sodium Potassium Chloride Carbon Dioxide Anion Gap BUN Creatinine Est GFR ( Amer) Est GFR (Non-Af Amer) POC Glucose (mg/dL) 120 H Random Glucose Hemoglobin A1c Lactic Acid Calcium Phosphorus Magnesium Total Bilirubin AST ALT Alkaline Phosphatase Total Creatine Kinase CK-MB (Mass) Troponin I Total Protein Albumin Globulin Albumin/Globulin Ratio Urine Color Urine Clarity Urine pH Ur Specific [place] Urine Protein Urine Glucose (UA) Urine Ketones Urine Blood Urine Nitrate Urine Bilirubin Urine Urobilinogen Ur Leukocyte Esterase Urine WBC (Auto) Urine RBC (Auto) Urine Opiates Screen Urine Methadone Screen Ur Barbiturates Screen Ur Phencyclidine Scrn Ur Amphetamines Screen U Benzodiazepines Scrn U Oth Cocaine Metabols U Cannabinoids Screen 05/13/18 05/13/18 05/13/18 08:42 09:19 11:48 WBC RBC Hgb Hct MCV MCH MCHC RDW Plt Count MPV Neut % (Auto) Lymph % (Auto) [place] % (Auto) Eos % (Auto) Baso % (Auto) Neut # (Auto) Lymph # (Auto) [place] # (Auto) Eos # (Auto) Baso # (Auto) APTT Sodium Potassium Chloride Carbon Dioxide Anion Gap BUN Creatinine Est GFR ( Amer) Est GFR (Non-Af Amer) POC Glucose (mg/dL) 134 H 207 H Random Glucose Hemoglobin A1c Lactic Acid 1.0 Calcium Phosphorus Magnesium Total Bilirubin AST ALT Alkaline Phosphatase Total Creatine Kinase CK-MB (Mass) Troponin I Total Protein Albumin Globulin Albumin/Globulin Ratio Urine Color Urine Clarity Urine pH Ur Specific [place] Urine Protein Urine Glucose (UA) Urine Ketones Urine Blood Urine Nitrate Urine Bilirubin Urine Urobilinogen Ur Leukocyte Esterase Urine WBC (Auto) Urine RBC (Auto) Urine Opiates Screen Urine Methadone Screen Ur Barbiturates Screen Ur Phencyclidine Scrn Ur Amphetamines Screen U Benzodiazepines Scrn U Oth Cocaine Metabols U Cannabinoids Screen 05/13/18 05/13/18 05/13/18 16:05 16:05 16:16 WBC RBC Hgb Hct MCV MCH MCHC RDW Plt Count MPV Neut % (Auto) Lymph % (Auto) [place] % (Auto) Eos % (Auto) Baso % (Auto) Neut # (Auto) Lymph # (Auto) [place] # (Auto) Eos # (Auto) Baso # (Auto) APTT 55 H D Sodium Potassium Chloride Carbon Dioxide Anion Gap BUN Creatinine Est GFR ( Amer) Est GFR (Non-Af Amer) POC Glucose (mg/dL) 182 H Random Glucose Hemoglobin A1c Lactic Acid Calcium Phosphorus Magnesium Total Bilirubin AST ALT Alkaline Phosphatase Total Creatine Kinase 311 H CK-MB (Mass) 12.2 H Troponin I 6.8100 H* Total Protein Albumin Globulin Albumin/Globulin Ratio Urine Color Urine Clarity Urine pH Ur Specific [place] Urine Protein Urine Glucose (UA) Urine Ketones Urine Blood Urine Nitrate Urine Bilirubin Urine Urobilinogen Ur Leukocyte Esterase Urine WBC (Auto) Urine RBC (Auto) Urine Opiates Screen Urine Methadone Screen Ur Barbiturates Screen Ur Phencyclidine Scrn Ur Amphetamines Screen U Benzodiazepines Scrn U Oth Cocaine Metabols U Cannabinoids Screen 05/13/18 05/13/18 05/14/18 21:17 22:13 05:47 WBC 17.9 H RBC 4.55 Hgb 12.2 Hct 36.1 MCV 79.4 L MCH 26.8 L MCHC 33.7 RDW 12.8 Plt Count 336 MPV 7.7 Neut % (Auto) 74.2 Lymph % (Auto) 15.8 L [place] % (Auto) 9.3 Eos % (Auto) 0.2 Baso % (Auto) 0.5 Neut # (Auto) 13.3 H Lymph # (Auto) 2.8 [place] # (Auto) 1.7 H Eos # (Auto) 0.0 Baso # (Auto) 0.1 APTT 53 H Sodium Potassium Chloride Carbon Dioxide Anion Gap BUN Creatinine Est GFR ( Amer) Est GFR (Non-Af Amer) POC Glucose (mg/dL) 131 H Random Glucose Hemoglobin A1c Lactic Acid Calcium Phosphorus Magnesium Total Bilirubin AST ALT Alkaline Phosphatase Total Creatine Kinase CK-MB (Mass) Troponin I Total Protein Albumin Globulin Albumin/Globulin Ratio Urine Color Urine Clarity Urine pH Ur Specific [place] Urine Protein Urine Glucose (UA) Urine Ketones Urine Blood Urine Nitrate Urine Bilirubin Urine Urobilinogen Ur Leukocyte Esterase Urine WBC (Auto) Urine RBC (Auto) Urine Opiates Screen Urine Methadone Screen Ur Barbiturates Screen Ur Phencyclidine Scrn Ur Amphetamines Screen U Benzodiazepines Scrn U Oth Cocaine Metabols U Cannabinoids Screen 05/14/18 05/14/18 05:47 05:47 WBC RBC Hgb Hct MCV MCH MCHC RDW Plt Count MPV Neut % (Auto) Lymph % (Auto) [place] % (Auto) Eos % (Auto) Baso % (Auto) Neut # (Auto) Lymph # (Auto) [place] # (Auto) Eos # (Auto) Baso # (Auto) APTT 52 H Sodium 134 Potassium 3.6 Chloride 99 Carbon Dioxide 24 Anion Gap 15 BUN 24 H Creatinine 0.6 L Est GFR ( Amer) > 60 Est GFR (Non-Af Amer) > 60 POC Glucose (mg/dL) Random Glucose 122 H Hemoglobin A1c Lactic Acid Calcium 8.1 L Phosphorus 2.5 Magnesium 2.3 Total Bilirubin 0.5 AST 50 ALT 33 Alkaline Phosphatase 98 Total Creatine Kinase CK-MB (Mass) Troponin I Total Protein 6.5 Albumin 3.3 L Globulin 3.2 Albumin/Globulin Ratio 1.0 Urine Color Urine Clarity Urine pH Ur Specific [place] Urine Protein Urine Glucose (UA) Urine Ketones Urine Blood Urine Nitrate Urine Bilirubin Urine Urobilinogen Ur Leukocyte Esterase Urine WBC (Auto) Urine RBC (Auto) Urine Opiates Screen Urine Methadone Screen Ur Barbiturates Screen Ur Phencyclidine Scrn Ur Amphetamines Screen U Benzodiazepines Scrn U Oth Cocaine Metabols U Cannabinoids Screen EKG/Cardiology Studies: Cardiology / EKG Studies 05/13/18 09:30 ELECTROCARDIOGRAM Stat Comment: Mode Of Transportation: Reason For Exam: NSTMI Fingerstick Blood Sugar Results: 106 Critical Care Progress Note - Nutrition Nutrition: Nutrition Category Date Time Status Heart Healthy Diet [DIET] Diets 05/13/18 Breakfast Active Assessment/Plan - Assessment and Plan (Free Text) Assessment: Patient is a 62 yo male w/ PMH of CAD s/p CABG, DM-2, and hyperlipidemia presenting with right groin cellulitis, NSTEMI, and DKA. Plan: Neuro: - AAO X 3 Pulm: Possible pneumonia -CT Abd/pelvis (05/13): Very small bilateral pleural effusion with minimal bilateral lower lobe alveolar opacity representing possibly pneumonia or subsegmental atelectasis. No other acute abnormality. - Zosyn 3.375g IV Q8 (Started on 05/13) - Vancomycin 1g IV Q12 (Started on 05/13) Cardiovascular: NSTEMI - EKG on admission showed ST depression - Cardiology consulted, Dr. Clark/Reinaldo - Troponin: 11.5-->6.8-->3.0 - ProBNP: 1910 - Echo: f/u - ASA 81mg PO QD - Plavix 75mg PO QD - Crestor 20mg PO QD - Nitroglycerin IV 5mg/min - Metoprolol tartrate 50mg PO BID - Recommends cardiac catheterization after infection resolves, as per cardiology - Patient is no a candidate for surgery at this time, as per cardiology Heme: Leukocytosis - WBC: 16.8 --> 17.9 Renal: - No acute issues Endo: DKA - Glucose level on admission: 439 - Anion gap: 23--> 15 - Beta-hydroxybutarate: 3.34 - HbA1C: 12.3 - Endocrinology consulted, Dr. Mcmahan - ISS - Hypoglycemia protocol - Accuchecks ACHS GI: - No acute issues ID: Sepsis - Code sepsis (05/13) - ID consulted, Dr. Packer - Zosyn 3.375g IV Q8 (Started on 05/13) - Vancomycin 1g IV Q12 (Started on 05/13) - WBC: 16.8 --> 17.9 - Wound culture (05/13): No growth to date - Blood culture (05/12): No growth to date Skin Right groin abscess - CT Abd/pelvis (05/13): No evidence of inguinal hernia. Right inguinal cellulitis and vaguely confluent ill-defined subcutaneous masses which may represent lymph nodes or small abscesses. - Surgery consulted, Dr. Hubbard - Possible I & D - Patient is no a candidate for surgery at this time, as per cardiology - ID consulted, Dr. Packer - Wound culture (05/13): No growth to date - Vancomycin 1g IV Q12 (Started on 05/13) - Zosyn 3.375g IV Q8 (Started on 05/13) - Percocet 5/325mg PO Q6H PRN Prophylaxis: - Pepcid 20mg PO QD - Heparin drip - Lactobacillus Case discussed with Dr. Jan Arthur, PGY-1
[2018-05-14] MEDS ORDERED: Glucagon Recombinant 1 mg Inj IM PRN (08:16)
[2018-05-14] MEDS ORDERED: Dextrose 50% SYRINGE Inj (50 ml) IV PRN (08:16)
--- NOTE | 2018-05-14 08:36 | CP.PCM.PN ---
Subjective - Date & Time of Evaluation Date of Evaluation: 05/14/18 Time of Evaluation: 07:10 - Subjective Subjective: General Surgery progress note Dr. Hubbard Patient seen and examined this am at bedside. NAEO per nursing. Patient continues to c/o pain and swelling at right groin area. he otherwise denies f/c, n/v, SOB, abdominal pain and extremity pain or weakness. Objective - Vital Signs/Intake and Output Vital Signs (last 24 hours): Temp Pulse Resp BP Pulse Ox 99.5 F 99 H 29 H 146/87 90 L 05/14/18 08:00 05/14/18 08:00 05/14/18 08:00 05/14/18 06:19 05/14/18 08:00 Intake and Output: 05/14/18 05/14/18 06:59 18:59 Intake Total 1166.2 249.2 Output Total 250 Balance 916.2 249.2 - Medications Medications: Current Medications Acetaminophen (Tylenol 325mg Tab) 650 mg PO Q6 PRN PRN Reason: Pain, Mild (1-3) Aspirin (Aspirin Chewable) 81 mg PO DAILY [facility] Last Admin: 05/13/18 10:03 Dose: 81 mg Clopidogrel Bisulfate (Plavix) 75 mg PO DAILY [facility] Last Admin: 05/13/18 10:03 Dose: 75 mg Dextrose (Dextrose 50% Inj) 0 ml IV STAT PRN; Protocol PRN Reason: Hypoglycemia Protocol Dextrose (Glutose 15) 0 gm PO ONCE PRN; Protocol PRN Reason: Hypoglycemia Protocol Glucagon (Glucagen Diagnostic Kit) 0 mg IM STAT PRN; Protocol PRN Reason: Hypoglycemia Protocol Heparin Sodium/Sodium Chloride (Heparin 86049 Units/250ml 1/2 Normal Saline) 25,000 units in 250 mls @ 7.2 mls/hr IV .Q24H PRN; Protocol PRN Reason: ADJUST RATE PER PROTOCOL Last Admin: 05/14/18 03:22 Dose: 16.1 units/kg/hr, 9.66 mls/hr Nitroglycerin/Dextrose (Nitroglycerin 50 Mg/250 Ml D5w) 50 mg in 250 mls @ 1.5 mls/hr IV .Q24H [facility]; Protocol Last Titration: 05/13/18 09:30 Dose: 0 mcg/min, 0 mls/hr Vancomycin HCl 1,000 mg/ (Sodium Chloride) 250 mls @ 166.6 mls/hr IVPB Q12H [facility]; Protocol Last Admin: 05/14/18 01:56 Dose: 166.6 mls/hr Piperacillin Sod/Tazobactam (Sod 3.375 gm/ Sodium Chloride) 100 mls @ 200 mls/hr IVPB Q8H [facility]; Protocol Last Admin: 05/14/18 05:41 Dose: 200 mls/hr Dextrose (Dextrose 5% In Water 1000 Ml) 1,000 mls @ 0 mls/hr IV .Q0M PRN; Protocol PRN Reason: Hypoglycemia Protocol Insulin Human NPH (Novolin N) 14 unit SC HS [facility] Last Admin: 05/13/18 22:03 Dose: 14 u Insulin Human Regular (Novolin R) 8 unit SC ACBD [facility] Last Admin: 05/13/18 16:44 Dose: 8 units Insulin Human Regular (Novolin R) 0 unit SC ACHS [facility] Last Admin: 05/14/18 07:56 Dose: Not Given Metoprolol Tartrate (Lopressor) 25 mg PO BID [facility] Last Admin: 05/13/18 17:38 Dose: 25 mg Oxycodone/Acetaminophen (Percocet 5/325 Mg Tab) 1 tab PO Q6H PRN PRN Reason: Pain, moderate (4-7) Stop: 05/16/18 12:03 Last Admin: 05/14/18 02:48 Dose: 1 tab Pantoprazole Sodium (Protonix Inj) 40 mg IVP Q12H [facility] Last Admin: 05/14/18 00:47 Dose: 40 mg Rosuvastatin Calcium (Crestor) 20 mg PO [facility] Last Admin: 05/13/18 22:03 Dose: 20 mg - Labs Labs: 05/14/18 05:47 05/14/18 05:47 PT 12.8 SECONDS (9.7-12.2) H 05/13/18 01:58 INR 1.2 05/13/18 01:58 APTT 52 SECONDS (21-34) H 05/14/18 05:47 - Constitutional Appears: Non-toxic, No Acute Distress - Head Exam Head Exam: ATRAUMATIC, NORMOCEPHALIC - Eye Exam Eye Exam: EOMI - ENT Exam ENT Exam: Mucous Membranes Moist - Respiratory Exam Respiratory Exam: NORMAL BREATHING PATTERN - Cardiovascular Exam Cardiovascular Exam: Tachycardia (mid 90s), REGULAR RHYTHM - GI/Abdominal Exam GI & Abdominal Exam: Soft. absent: Distended, Guarding, Tenderness - Extremities Exam Extremities Exam: absent: Calf Tenderness, Pedal Edema - Neurological Exam Neurological Exam: Alert, Awake, Oriented x3 - Psychiatric Exam Psychiatric exam: Normal Affect, Normal Mood - Skin Skin Exam: Warm Additional comments: large area of erythema and induration in the right groin with overlying skin breakdown, moderately tender to palpation, no underlying crepitus, small point of fluctuance felt at inferior skin ulceration Assessment and Plan - Assessment and Plan (Free Text) Assessment: 62 yr old male with right groin cellulitis vs abscess Plan: Continue management of CHF and ACS continue ABX If descrete collection declares itself will consider inscision and drainage will D/W Dr. Hubbard
--- NOTE | 2018-05-14 08:54 | CP.PCM.PN ---
Subjective - Date & Time of Evaluation Date of Evaluation: 05/14/18 Time of Evaluation: 08:30 - Subjective Subjective: Hospitalist Progress Note Patient was seen and examined at 8:30 AM 05/14/18 ICU Bed 17 Patient is Eleazar speaking but understands Génesisrati Upon ROS: Right Groin pain has improved since admission: "before you couldn't even touch it" but now sore with palpation Complains of "gas" like pain in the substernal area Cough that is dry that comes occasionally Dry mouth NO N/V NO abdominal pain NO chest pain NO SOB NO burning/pain with urination NO lightheadedness/dizziness Blurriness of vision with the left worse than the right for the past 20 to 30 days now NO new changes in hearing NO paresthesias General: AAO x 3, NAD HEENT: NCA, EOMI, PERRLA, NO cervical/submandibular/supraclavicular lymphadenopathy, NO pharyngeal erythema/exudate, NO thyrogmegaly, Dry oral mucosa and nasal turbinates Cardio: NS1 and NS2, NO M/R/G but interference from breath sounds Resp: Bilateral Mid to Lower lung field inspiratory crackles GI: BSx4, SOFT, NT, ND, NO HSM, NO guarding/rebound tenderness Ext: Pulses are strong and equal bilateral UE and LE, NO edema, Capillary Refill is 2 seconds bilateral UE and LE Neuro: CN II through XII are grossly intact Skin: Right Groin area there is of hardness (roughly 6 cm) with central circular area (roughly 2 to 3 cm) that is erythematous and raised with central camara all of which is slightly tender to the touch Assessements: 1). Sepsis Secondary to Right Groin Cellulitis 2). Possible LLL Pneumonia 3). NSTEMI? 4). Uncontrolled DM 2 5). Hx HLD Continue Vanco and Zosyn for the Right Groin Cellulitis. F/U Wound Cultures. NO I&D planned by surgery at this time F/U Vancomycin Trough 05/15/18 at 1:30 AM There is possible Left Lobe Pneumonia as seen on CT Abdomen/Pelvis: continue the Vanco and Zosyn. F/U Urine Legionella, Urine Strep pnumoniae, Mycoplasma IgG, IgM, Rapid Influenza NSTEMI: continue Heparin Drip. F/U further recommendations by Dr. Bennett. F/U Echo Uncontrolled DM 2: patient stated that he has not taken any of his medications for months now. Started on NPH Insulin and Regular Insulin ACBD HLD: Sean Weir D.O. Objective - Vital Signs/Intake and Output Vital Signs (last 24 hours): Temp Pulse Resp BP Pulse Ox 99.5 F 99 H 29 H 146/87 90 L 05/14/18 08:00 05/14/18 08:00 05/14/18 08:00 05/14/18 06:19 05/14/18 08:00 Intake and Output: 05/14/18 05/14/18 06:59 18:59 Intake Total 1166.2 249.2 Output Total 250 Balance 916.2 249.2 - Medications Medications: Current Medications Acetaminophen (Tylenol 325mg Tab) 650 mg PO Q6 PRN PRN Reason: Pain, Mild (1-3) Aspirin (Aspirin Chewable) 81 mg PO DAILY [facility] Last Admin: 05/13/18 10:03 Dose: 81 mg Clopidogrel Bisulfate (Plavix) 75 mg PO DAILY [facility] Last Admin: 05/13/18 10:03 Dose: 75 mg Dextrose (Dextrose 50% Inj) 0 ml IV STAT PRN; Protocol PRN Reason: Hypoglycemia Protocol Dextrose (Glutose 15) 0 gm PO ONCE PRN; Protocol PRN Reason: Hypoglycemia Protocol Glucagon (Glucagen Diagnostic Kit) 0 mg IM STAT PRN; Protocol PRN Reason: Hypoglycemia Protocol Heparin Sodium/Sodium Chloride (Heparin 48128 Units/250ml 1/2 Normal Saline) 25,000 units in 250 mls @ 7.2 mls/hr IV .Q24H PRN; Protocol PRN Reason: ADJUST RATE PER PROTOCOL Last Admin: 05/14/18 03:22 Dose: 16.1 units/kg/hr, 9.66 mls/hr Nitroglycerin/Dextrose (Nitroglycerin 50 Mg/250 Ml D5w) 50 mg in 250 mls @ 1.5 mls/hr IV .Q24H [facility]; Protocol Last Titration: 05/13/18 09:30 Dose: 0 mcg/min, 0 mls/hr Vancomycin HCl 1,000 mg/ (Sodium Chloride) 250 mls @ 166.6 mls/hr IVPB Q12H [facility]; Protocol Last Admin: 05/14/18 01:56 Dose: 166.6 mls/hr Piperacillin Sod/Tazobactam (Sod 3.375 gm/ Sodium Chloride) 100 mls @ 200 mls/hr IVPB Q8H [facility]; Protocol Last Admin: 05/14/18 05:41 Dose: 200 mls/hr Dextrose (Dextrose 5% In Water 1000 Ml) 1,000 mls @ 0 mls/hr IV .Q0M PRN; Protocol PRN Reason: Hypoglycemia Protocol Insulin Human NPH (Novolin N) 14 unit SC HS [facility] Last Admin: 05/13/18 22:03 Dose: 14 u Insulin Human Regular (Novolin R) 8 unit SC ACBD [facility] Last Admin: 05/13/18 16:44 Dose: 8 units Insulin Human Regular (Novolin R) 0 unit SC ACHS [facility] Last Admin: 05/14/18 07:56 Dose: Not Given Metoprolol Tartrate (Lopressor) 25 mg PO BID [facility] Last Admin: 05/13/18 17:38 Dose: 25 mg Oxycodone/Acetaminophen (Percocet 5/325 Mg Tab) 1 tab PO Q6H PRN PRN Reason: Pain, moderate (4-7) Stop: 05/16/18 12:03 Last Admin: 05/14/18 02:48 Dose: 1 tab Pantoprazole Sodium (Protonix Inj) 40 mg IVP Q12H [facility] Last Admin: 05/14/18 00:47 Dose: 40 mg Rosuvastatin Calcium (Crestor) 20 mg PO [facility] Last Admin: 05/13/18 22:03 Dose: 20 mg - Labs Labs: 05/14/18 05:47 05/14/18 05:47 PT 12.8 SECONDS (9.7-12.2) H 05/13/18 01:58 INR 1.2 05/13/18 01:58 APTT 52 SECONDS (21-34) H 05/14/18 05:47
[2018-05-14] MEDS ORDERED: Aluminum Hydroxide/Magnesium Hydroxide Susp (30 mL) PO ONE (09:00)
[2018-05-14 09:28] LABS: CK-MB 2.88 ng/mL (0.0-3.38); TROPONIN I 2.98 ng/mL (0.00-0.120)
[2018-05-14 09:48] LABS: HEPATITIS B SURFACE AG Negative (NEGATIVE)
[2018-05-14 09:54] LABS: HEPATITIS A IGM NEGATIVE (NEGATIVE); HEPATITIS B CORE AB NEGATIVE (NEGATIVE)
[2018-05-14] MEDS: Lactobacillus Acidophilus 500 MU Cap PO SCH ×2 (10:04→17:19)
[2018-05-14] MEDS ORDERED: Potassium Chloride 20 mEq ER Tab PO ONE (10:05)
[2018-05-14 10:06] LABS: HEPATITIS C ANTIBODY NEGATIVE (NEGATIVE)
--- NOTE | 2018-05-14 10:13 | CP.PCM.PN ---
Subjective - Date & Time of Evaluation Date of Evaluation: 05/14/18 Time of Evaluation: 10:11 - Subjective Subjective: Pt complains of gas Objective - Vital Signs/Intake and Output Vital Signs (last 24 hours): Temp Pulse Resp BP Pulse Ox 99.5 F 99 H 29 H 146/87 90 L 05/14/18 08:00 05/14/18 08:00 05/14/18 08:00 05/14/18 06:19 05/14/18 08:00 Intake and Output: 05/14/18 05/14/18 06:59 18:59 Intake Total 1166.2 249.2 Output Total 250 Balance 916.2 249.2 - Medications Medications: Current Medications Acetaminophen (Tylenol 325mg Tab) 650 mg PO Q6 PRN PRN Reason: Pain, Mild (1-3) Aspirin (Aspirin Chewable) 81 mg PO DAILY [facility] Last Admin: 05/13/18 10:03 Dose: 81 mg Clopidogrel Bisulfate (Plavix) 75 mg PO DAILY [facility] Last Admin: 05/13/18 10:03 Dose: 75 mg Dextrose (Dextrose 50% Inj) 0 ml IV STAT PRN; Protocol PRN Reason: Hypoglycemia Protocol Dextrose (Glutose 15) 0 gm PO ONCE PRN; Protocol PRN Reason: Hypoglycemia Protocol Famotidine (Pepcid) 20 mg PO DAILY [facility] Glucagon (Glucagen Diagnostic Kit) 0 mg IM STAT PRN; Protocol PRN Reason: Hypoglycemia Protocol Heparin Sodium/Sodium Chloride (Heparin 39446 Units/250ml 1/2 Normal Saline) 25,000 units in 250 mls @ 7.2 mls/hr IV .Q24H PRN; Protocol PRN Reason: ADJUST RATE PER PROTOCOL Last Admin: 05/14/18 03:22 Dose: 16.1 units/kg/hr, 9.66 mls/hr Nitroglycerin/Dextrose (Nitroglycerin 50 Mg/250 Ml D5w) 50 mg in 250 mls @ 1.5 mls/hr IV .Q24H [facility]; Protocol Last Titration: 05/13/18 09:30 Dose: 0 mcg/min, 0 mls/hr Vancomycin HCl 1,000 mg/ (Sodium Chloride) 250 mls @ 166.6 mls/hr IVPB Q12H [facility]; Protocol Last Admin: 05/14/18 01:56 Dose: 166.6 mls/hr Piperacillin Sod/Tazobactam (Sod 3.375 gm/ Sodium Chloride) 100 mls @ 200 mls/hr IVPB Q8H [facility]; Protocol Last Admin: 05/14/18 05:41 Dose: 200 mls/hr Dextrose (Dextrose 5% In Water 1000 Ml) 1,000 mls @ 0 mls/hr IV .Q0M PRN; Protocol PRN Reason: Hypoglycemia Protocol Insulin Human NPH (Novolin N) 14 unit SC HS [facility] Last Admin: 05/13/18 22:03 Dose: 14 u Insulin Human Regular (Novolin R) 8 unit SC ACBD [facility] Last Admin: 05/13/18 16:44 Dose: 8 units Insulin Human Regular (Novolin R) 0 unit SC ACHS [facility] Last Admin: 05/14/18 07:56 Dose: Not Given Lactobacillus Acidophilus (Bacid Acidophilus) 1 cap PO BID [facility] Oxycodone/Acetaminophen (Percocet 5/325 Mg Tab) 1 tab PO Q6H PRN PRN Reason: Pain, moderate (4-7) Stop: 05/16/18 12:03 Last Admin: 05/14/18 02:48 Dose: 1 tab Rosuvastatin Calcium (Crestor) 20 mg PO HS [facility] Last Admin: 05/13/18 22:03 Dose: 20 mg - Labs Labs: 05/14/18 05:47 05/14/18 05:47 PT 12.8 SECONDS (9.7-12.2) H 05/13/18 01:58 INR 1.2 05/13/18 01:58 APTT 52 SECONDS (21-34) H 05/14/18 05:47 - Constitutional Appears: Well, Chronically Ill - Head Exam Head Exam: NORMAL INSPECTION - Eye Exam Eye Exam: EOMI - ENT Exam ENT Exam: Mucous Membranes Moist - Neck Exam Neck Exam: Full ROM - Respiratory Exam Respiratory Exam: Clear to Ausculation Bilateral - Cardiovascular Exam Cardiovascular Exam: REGULAR RHYTHM - GI/Abdominal Exam GI & Abdominal Exam: Normal Bowel Sounds - Exam External exam: NORMAL EXTERNAL EXAM - Extremities Exam Extremities Exam: Full ROM, Normal Inspection - Back Exam Back Exam: NORMAL INSPECTION - Neurological Exam Neurological Exam: Alert, Awake, CN II-XII Intact - Psychiatric Exam Psychiatric exam: Normal Affect, Normal Mood - Skin Skin Exam: Normal Color Assessment and Plan - Assessment and Plan (Free Text) Assessment: 1. Acute non stemi, pt on dapt, statin and heparin. No chest pain, but his main concern is lower gas jose miguel in his abdomen, associated wit h eating. Pt is tachycardia, s tach, and I increased beta juan miguel dose to 50 bod of lopressor. Await echo (reordered). TNI is trending downwards. Lungs are clear. Once infection in the groin has resolved, a c cath is advised.
--- NOTE | 2018-05-14 13:33 | CP.PCM.PN ---
Subjective - Date & Time of Evaluation Date of Evaluation: 05/14/18 Time of Evaluation: 08:00 - Subjective Subjective: seen in ICU cardio following cultures neg thus far Objective - Vital Signs/Intake and Output Vital Signs (last 24 hours): Temp Pulse Resp BP Pulse Ox 99.4 F 99 H 28 H 157/83 H 95 05/14/18 12:00 05/14/18 11:00 05/14/18 11:00 05/14/18 10:19 05/14/18 11:00 Intake and Output: 05/14/18 05/14/18 06:59 18:59 Intake Total 1166.2 767.6 Output Total 250 1400 Balance 916.2 -632.4 - Medications Medications: Current Medications Acetaminophen (Tylenol 325mg Tab) 650 mg PO Q6 PRN PRN Reason: Pain, Mild (1-3) Aspirin (Aspirin Chewable) 81 mg PO DAILY [facility] Last Admin: 05/14/18 10:04 Dose: 81 mg Clopidogrel Bisulfate (Plavix) 75 mg PO DAILY [facility] Last Admin: 05/14/18 10:04 Dose: 75 mg Dextrose (Dextrose 50% Inj) 0 ml IV STAT PRN; Protocol PRN Reason: Hypoglycemia Protocol Dextrose (Glutose 15) 0 gm PO ONCE PRN; Protocol PRN Reason: Hypoglycemia Protocol Famotidine (Pepcid) 20 mg PO DAILY [facility] Last Admin: 05/14/18 10:04 Dose: 20 mg Glucagon (Glucagen Diagnostic Kit) 0 mg IM STAT PRN; Protocol PRN Reason: Hypoglycemia Protocol Heparin Sodium/Sodium Chloride (Heparin 88810 Units/250ml 1/2 Normal Saline) 25,000 units in 250 mls @ 7.2 mls/hr IV .Q24H PRN; Protocol PRN Reason: ADJUST RATE PER PROTOCOL Last Admin: 05/14/18 03:22 Dose: 16.1 units/kg/hr, 9.66 mls/hr Nitroglycerin/Dextrose (Nitroglycerin 50 Mg/250 Ml D5w) 50 mg in 250 mls @ 1.5 mls/hr IV .Q24H [facility]; Protocol Last Titration: 05/13/18 09:30 Dose: 0 mcg/min, 0 mls/hr Vancomycin HCl 1,000 mg/ (Sodium Chloride) 250 mls @ 166.6 mls/hr IVPB Q12H [facility]; Protocol Last Admin: 05/14/18 01:56 Dose: 166.6 mls/hr Piperacillin Sod/Tazobactam (Sod 3.375 gm/ Sodium Chloride) 100 mls @ 200 mls/hr IVPB Q8H [facility]; Protocol Last Admin: 05/14/18 05:41 Dose: 200 mls/hr Dextrose (Dextrose 5% In Water 1000 Ml) 1,000 mls @ 0 mls/hr IV .Q0M PRN; Protocol PRN Reason: Hypoglycemia Protocol Insulin Human NPH (Novolin N) 14 unit SC [facility] Last Admin: 05/13/18 22:03 Dose: 14 u Insulin Human Regular (Novolin R) 8 unit SC ACBD [facility] Last Admin: 05/14/18 10:05 Dose: Not Given Insulin Human Regular (Novolin R) 0 unit SC ACHS [facility] Last Admin: 05/14/18 12:13 Dose: Not Given Lactobacillus Acidophilus (Bacid Acidophilus) 1 cap PO BID [facility] Last Admin: 05/14/18 10:04 Dose: 1 cap Metoprolol Tartrate (Lopressor) 50 mg PO BID [facility] Oxycodone/Acetaminophen (Percocet 5/325 Mg Tab) 1 tab PO Q6H PRN PRN Reason: Pain, moderate (4-7) Stop: 05/16/18 12:03 Last Admin: 05/14/18 13:28 Dose: 1 tab Rosuvastatin Calcium (Crestor) 20 mg PO [facility] Last Admin: 05/13/18 22:03 Dose: 20 mg - Labs Labs: 05/14/18 05:47 05/14/18 05:47 PT 12.8 SECONDS (9.7-12.2) H 05/13/18 01:58 INR 1.2 05/13/18 01:58 APTT 52 SECONDS (21-34) H 05/14/18 05:47 - Constitutional Appears: Non-toxic, Chronically Ill - Head Exam Head Exam: NORMOCEPHALIC - Eye Exam Eye Exam: absent: Scleral icterus - ENT Exam ENT Exam: Mucous Membranes Dry - Neck Exam Neck Exam: absent: Lymphadenopathy - Respiratory Exam Respiratory Exam: Decreased Breath Sounds - Cardiovascular Exam Cardiovascular Exam: REGULAR RHYTHM - GI/Abdominal Exam GI & Abdominal Exam: Distended, Soft, Tenderness Assessment and Plan (1) Lymphadenitis, acute Status: Acute (2) Cellulitis Status: Acute (3) Hx of CABG Status: Acute (4) Diabetes mellitus Status: Chronic (5) Non-ST elevation (NSTEMI) myocardial infarction Status: Acute
[2018-05-14 16:57] LABS: LEGIONELLA AG URINE NEGATIVE (NEGATIVE)
[2018-05-14 18:12] LABS: N MENINGITIS ACY/W135 NEGATIVE (NEGATIVE); N MENINGITIS B/ECOLI K1 NEGATIVE (NEGATIVE); STREP PNEUMONIAE NEGATIVE (NEGATIVE); STREPTOCOCCUS B NEGATIVE (NEGATIVE)
--- NOTE | 2018-05-14 20:53 | CARD ---
APPROVED REPORT Date of service: 05/12/2018 EKG Measurement Heart [id number] IA 104P [id number] <Conclusion> Sinus tachycardia with short IA Anterior infarct, age undetermined Marked ST abnormality, possible inferior subendocardial injury Abnormal ECG
[2018-05-14] MEDS: (Novolin N) Insulin Human Isophane (NPH) 100 u/ml 10 ml vial SC SCH (22:04)
--- NOTE | 2018-05-14 23:42 | PN ---
DATE: 05/14/2018 ENDOCRINOLOGY FOLLOWUP NOTE LOCATION: In ICU, room 17. SUBJECTIVE: This is a 62-year-old male with recent lower extremity cellulitis and is now being followed closely for metabolic management. His glycemic levels are fluctuating, but improved, and the glucose levels overnight have ranged from 131-182 mg per dL. LABORATORY DATA: His latest chemistries showed a BUN of 24, sodium 134, potassium 3.6, chloride 99, CO2 of 24, glucose 122, and creatinine 0.6. His troponin levels are still elevated at 6.8 with a repeat level of 2.9. ASSESSMENT: Acute [id number] myocardial infarction at this time with recent uncontrolled type 2 insulin-requiring diabetes as noted. PLAN OF MANAGEMENT: We will continue the current basal and bolus insulin regimen as given with NPH given as 14 units at bedtime as ordered. We will continue the regular insulin given as 8 units b.i.d. before meals as ordered. We will obtain serum chemistries and supplement accordingly as needed. We will follow. Yeni Mcmahan MD
[2018-05-15] MEDS: Oxycodone/Acetaminophen 5/325 mg Tab PO PRN ×3 (02:59→19:54)
[2018-05-15] MEDS: Piperacillin/Tazobact 3.375 GM in Sodium Chloride 100 ML IVPB SCH ×3 (05:44→22:04)
[2018-05-15] MEDS: Heparin25000 units/250ml 1/2NS 25,000 UNITS/250 ML BAG IV PRN (05:46)
[2018-05-15 06:12] LABS: BASO # 0.2 K/uL (0.0-0.2); BASO % 1.1 % (0.0-2.0); EOS # 0.1 K/uL (0.0-0.7); EOS % 0.6 % (0.0-4.0); HEMOGLOBIN 11.4 g/dL (12.0-18.0); LYMPH # 2.3 K/uL (1.0-4.3); LYMPH % 15.6 % (20.0-40.0); MEAN CELL VOLUME 80.1 fL (80.0-94.0); MEAN CORPUSCULAR HEMOGLOBIN 26.2 pg (27.0-31.0); MEAN CORPUSCULAR HGB CONC 32.8 g/dL (33.0-37.0); MEAN PLATELET VOLUME 7.9 fL (7.2-11.7); MONO # 1.9 K/uL (0.0-0.8); NEUT # 10.2 K/uL (1.8-7.0); NEUT % 69.7 % (50.0-75.0); RBC 4.33 Mil/uL (4.40-5.90); RED CELL DISTRIBUTION WIDTH 12.8 % (11.5-14.5); WHITE BLOOD COUNT 14.7 K/uL (4.8-10.8)
[2018-05-15 06:53] LABS: ALB/GLOB RATIO 0.9 (1.0-2.1); ALBUMIN 3.1 g/dL (3.5-5.0); ALT/SGPT 24 U/L (21-72); AST/SGOT 29 U/L (17-59); BLOOD UREA NITROGEN 17 mg/dL (9-20); CALCIUM 8.1 mg/dl (8.6-10.4); GFR NON-AFRICAN AMERICAN > 60
--- NOTE | 2018-05-15 08:08 | CP.CCUPN ---
CCU Subjective - Physician Review Subjective (Free Text): 05/14/18 11:26 Patient seen and examined at bedside, no acute events overnight. Patient is complaining of pain in his right groin, otherwise no other complaints. He denies chest pain, shortness of breath, or abdominal pain. 05/15/18 08:05 Patient seen and examined at bedside, no acute events overnight. Patient states his right groin pain is improving, no other complaints. Critical Care Time Spent (in minutes): 35 CCU Objective - Vital Signs / Intake & Output Vital Signs (Last 4 hours): Vital Signs Pulse Resp BP Pulse Ox 05/15/18 07:19 94 H 22 152/74 H 05/15/18 07:00 91 H 26 H 93 L 05/15/18 06:37 136/62 05/15/18 06:19 85 23 136/62 94 L 05/15/18 06:00 88 25 H 92 L 05/15/18 05:19 83 20 132/71 05/15/18 05:00 82 22 94 L 05/15/18 04:19 120/60 Intake and Output (Last 8hrs): Intake & Output 05/14/18 05/15/18 05/15/18 22:59 06:59 14:59 Intake Total 776.8 1076.8 9.6 Output Total 700 300 400 Balance 76.8 776.8 -390.4 Weight 131 lb 2.801 oz Intake: IV 250 Intake, IV Amount 176.8 426.8 9.6 Left Antecubital 100 350 Left Wrist 76.8 76.8 9.6 Oral 600 400 Output: Urine 700 300 400 Urine, Voided 700 300 400 - Physical Exam Head: Positive for: Atraumatic, Normocephalic Pupils: Positive for: PERRL Extroacular Muscles: Positive for: EOMI Conjunctiva: Positive for: Normal Mouth: Positive for: Dry Respiratory/Chest: Positive for: Rhonchi, Tachypneic, Other (Inspiratory crackles heard bilaterally). Negative for: Clear to Auscultation, Respiratory Distress, Accessory Muscle Use, Wheezes, Rales, Retracting Cardiovascular: Positive for: Regular Rate and Rhythm, Normal S1, S2. Negative for: Murmurs, Rub, Gallop Abdomen: Positive for: Normal Bowel Sounds. Negative for: Tenderness, Distention, Peritoneal Signs, Guarding Upper Extremity: Positive for: Normal Inspection Lower Extremity: Positive for: Normal Inspection Neurological: Positive for: GCS=15, CN II-XII Intact Skin: Positive for: Abscess (Right Groin area with induration ~ 6 cm, with central circular area (roughly 2 to 3 cm) that is erythematous and raised with central camara all of which is slightly tender to the touch) - Medications Active Medications: Active Medications Generic Name Dose Route Start Last Admin Trade Name Freq PRN Reason Stop Dose Admin Acetaminophen 650 mg 05/13/18 10:08 Tylenol 325mg Tab PO Q6 PRN Pain, Mild (1-3) Aspirin 81 mg 05/13/18 10:00 05/14/18 10:04 Aspirin Chewable PO 81 mg DAILY JOSE R Administration Clopidogrel Bisulfate 75 mg 05/13/18 10:00 05/14/18 10:04 Plavix PO 75 mg DAILY JOSE R Administration Dextrose 0 ml 05/14/18 08:16 Dextrose 50% Inj IV STAT PRN Hypoglycemia Protocol Protocol Dextrose 0 gm 05/14/18 08:16 Glutose 15 PO ONCE PRN Hypoglycemia Protocol Protocol Famotidine 20 mg 05/14/18 10:00 05/14/18 10:04 Pepcid PO 20 mg DAILY JOSE R Administration Glucagon 0 mg 05/14/18 08:16 Glucagen Diagnostic Kit IM STAT PRN Hypoglycemia Protocol Protocol Heparin Sodium/Sodium Chloride 25,000 units in 250 mls @ 7.2 mls/hr 05/12/18 22:47 05/15/18 05:46 Heparin 99794 Units/250ml 1/2 Normal Saline IV 16.1 units/kg/hr .Q24H PRN 9.66 mls/hr ADJUST RATE PER PROTOCOL Administration Protocol 12 UNITS/KG/HR Vancomycin HCl 1,000 mg/ 250 mls @ 166.6 mls/hr 05/13/18 14:00 05/15/18 02:40 Sodium Chloride IVPB 166.6 mls/hr Q12H JOSE R Administration Protocol Piperacillin Sod/Tazobactam 100 mls @ 200 mls/hr 05/13/18 14:00 05/15/18 05:44 Sod 3.375 gm/ Sodium Chloride IVPB 200 mls/hr Q8H JOSE R Administration Protocol Dextrose 1,000 mls @ 0 mls/hr 05/14/18 08:16 Dextrose 5% In Water 1000 Ml IV .Q0M PRN Hypoglycemia Protocol Protocol Per Protocol Potassium Chloride 10 meq in 100 mls @ 100 mls/hr 05/15/18 08:30 Potassium Chloride 10 Meq/100 Ml IVPB 05/15/18 10:29 Q1H JOSE R Insulin Human NPH 14 unit 05/13/18 22:00 05/14/18 22:04 Novolin N SC 14 u HS JOSE R Administration Insulin Human Regular 8 unit 05/13/18 16:30 05/14/18 16:26 Novolin R SC 8 units ACBD JOSE R Administration Insulin Human Regular 0 unit 05/13/18 16:30 05/14/18 22:04 Novolin R SC Not Given ACHS JOSE R Lactobacillus Acidophilus 1 cap 05/14/18 10:00 05/14/18 17:19 Bacid Acidophilus PO 1 cap BID JOSE R Administration Metoprolol Tartrate 50 mg 05/14/18 18:00 05/14/18 17:19 Lopressor PO 50 mg BID JOSE R Administration Oxycodone/Acetaminophen 1 tab 05/13/18 12:02 05/15/18 02:59 Percocet 5/325 Mg Tab PO 05/16/18 12:03 1 tab Q6H PRN Administration Pain, moderate (4-7) Potassium Chloride 20 meq 05/15/18 08:30 K-Dur 20 Meq Er Tab PO 05/15/18 08:31 ONCE ONE Rosuvastatin Calcium 20 mg 05/12/18 23:45 05/14/18 21:30 Crestor PO 20 mg HS JOSE R Administration - Patient Studies Lab Studies: Microbiology Studies 05/12/18 21:30 Blood Culture - Preliminary Blood NO GROWTH AFTER 48 HOURS 05/13/18 08:10 Urine Culture - Final Urine,Clean Catch No Growth (<1,000 CFU/ML) 05/13/18 06:32 MRSA Culture (Admit) - Final Naris MRSA NOT DETECTED Lab Studies 05/15/18 05/15/18 05/15/18 Range/Units 06:05 06:05 06:03 WBC 14.7 H (4.8-10.8) K/uL RBC 4.33 L (4.40-5.90) Mil/uL Hgb 11.4 L (12.0-18.0) g/dL Hct 34.6 L (35.0-51.0) % MCV 80.1 (80.0-94.0) fL MCH 26.2 L (27.0-31.0) pg MCHC 32.8 L (33.0-37.0) g/dL RDW 12.8 (11.5-14.5) % Plt Count 343 (130-400) K/uL MPV 7.9 (7.2-11.7) fL Neut % (Auto) 69.7 (50.0-75.0) % Lymph % (Auto) 15.6 L (20.0-40.0) % Lucas % (Auto) 13.0 H (0.0-10.0) % Eos % (Auto) 0.6 (0.0-4.0) % Baso % (Auto) 1.1 (0.0-2.0) % Neut # (Auto) 10.2 H (1.8-7.0) K/uL Lymph # (Auto) 2.3 (1.0-4.3) K/uL Lucas # (Auto) 1.9 H (0.0-0.8) K/uL Eos # (Auto) 0.1 (0.0-0.7) K/uL Baso # (Auto) 0.2 (0.0-0.2) K/uL APTT 51 H (21-34) SECONDS Sodium 131 L (132-148) mmol/L Potassium 3.2 L (3.6-5.2) mmol/L Chloride 95 L (98-107) mmol/L Carbon Dioxide 26 (22-30) mmol/L Anion Gap 13 (10-20) BUN 17 (9-20) mg/dL Creatinine 0.6 L (0.8-1.5) mg/dL Est GFR ( Amer) > 60 Est GFR (Non-Af Amer) > 60 POC Glucose (mg/dL) (65-110) mg/dL Random Glucose 101 (75-110) mg/dL Calcium 8.1 L (8.6-10.4) mg/dl Phosphorus 2.6 (2.5-4.5) mg/dL Magnesium 2.2 (1.6-2.3) mg/dL Total Bilirubin 0.5 (0.2-1.3) mg/dL AST 29 (17-59) U/L ALT 24 (21-72) U/L Alkaline Phosphatase 93 (38-126) U/L Total Creatine Kinase (55-170) U/L CK-MB (Mass) (0.0-3.38) ng/mL Troponin I (0.00-0.120) ng/mL Total Protein 6.5 (6.3-8.3) g/dL Albumin 3.1 L (3.5-5.0) g/dL Globulin 3.4 (2.2-3.9) gm/dL Albumin/Globulin Ratio 0.9 L (1.0-2.1) Vancomycin Trough (5.0-10.0) ug/mL Hepatitis A IgM Ab (NEGATIVE) Hep Bs Antigen (NEGATIVE) Hep B Core IgM Ab (NEGATIVE) Hepatitis C Antibody (NEGATIVE) HIV 1&2 Antibody Screen (NEGATIVE) Influenza Typ A,B (EIA) (NEGATIVE) H.influenzae Type B Ag (NEGATIVE) Ur L.pneumophila Ag (NEGATIVE) N.meningitidis ACY/W135 (NEGATIVE) N.meningi B/E.coli K1 Ag (NEGATIVE) Group B Strep Antigen (NEGATIVE) S. pneumoniae Antigen (NEGATIVE) 05/15/18 05/14/18 05/14/18 Range/Units 01:37 22:02 16:09 WBC (4.8-10.8) K/uL RBC (4.40-5.90) Mil/uL Hgb (12.0-18.0) g/dL Hct (35.0-51.0) % MCV (80.0-94.0) fL MCH (27.0-31.0) pg MCHC (33.0-37.0) g/dL RDW (11.5-14.5) % Plt Count (130-400) K/uL MPV (7.2-11.7) fL Neut % (Auto) (50.0-75.0) % Lymph % (Auto) (20.0-40.0) % Lucas % (Auto) (0.0-10.0) % Eos % (Auto) (0.0-4.0) % Baso % (Auto) (0.0-2.0) % Neut # (Auto) (1.8-7.0) K/uL Lymph # (Auto) (1.0-4.3) K/uL Lucas # (Auto) (0.0-0.8) K/uL Eos # (Auto) (0.0-0.7) K/uL Baso # (Auto) (0.0-0.2) K/uL APTT (21-34) SECONDS Sodium (132-148) mmol/L Potassium (3.6-5.2) mmol/L Chloride (98-107) mmol/L Carbon Dioxide (22-30) mmol/L Anion Gap (10-20) BUN (9-20) mg/dL Creatinine (0.8-1.5) mg/dL Est GFR ( Amer) Est GFR (Non-Af Amer) POC Glucose (mg/dL) 145 H 233 H (65-110) mg/dL Random Glucose (75-110) mg/dL Calcium (8.6-10.4) mg/dl Phosphorus (2.5-4.5) mg/dL Magnesium (1.6-2.3) mg/dL Total Bilirubin (0.2-1.3) mg/dL AST (17-59) U/L ALT (21-72) U/L Alkaline Phosphatase (38-126) U/L Total Creatine Kinase (55-170) U/L CK-MB (Mass) (0.0-3.38) ng/mL Troponin I (0.00-0.120) ng/mL Total Protein (6.3-8.3) g/dL Albumin (3.5-5.0) g/dL Globulin (2.2-3.9) gm/dL Albumin/Globulin Ratio (1.0-2.1) Vancomycin Trough 6.7 (5.0-10.0) ug/mL Hepatitis A IgM Ab (NEGATIVE) Hep Bs Antigen (NEGATIVE) Hep B Core IgM Ab (NEGATIVE) Hepatitis C Antibody (NEGATIVE) HIV 1&2 Antibody Screen (NEGATIVE) Influenza Typ A,B (EIA) (NEGATIVE) H.influenzae Type B Ag (NEGATIVE) Ur L.pneumophila Ag (NEGATIVE) N.meningitidis ACY/W135 (NEGATIVE) N.meningi B/E.coli K1 Ag (NEGATIVE) Group B Strep Antigen (NEGATIVE) S. pneumoniae Antigen (NEGATIVE) 05/14/18 05/14/18 05/14/18 Range/Units 11:19 09:09 09:00 WBC (4.8-10.8) K/uL RBC (4.40-5.90) Mil/uL Hgb (12.0-18.0) g/dL Hct (35.0-51.0) % MCV (80.0-94.0) fL MCH (27.0-31.0) pg MCHC (33.0-37.0) g/dL RDW (11.5-14.5) % Plt Count (130-400) K/uL MPV (7.2-11.7) fL Neut % (Auto) (50.0-75.0) % Lymph % (Auto) (20.0-40.0) % Lucas % (Auto) (0.0-10.0) % Eos % (Auto) (0.0-4.0) % Baso % (Auto) (0.0-2.0) % Neut # (Auto) (1.8-7.0) K/uL Lymph # (Auto) (1.0-4.3) K/uL Lucas # (Auto) (0.0-0.8) K/uL Eos # (Auto) (0.0-0.7) K/uL Baso # (Auto) (0.0-0.2) K/uL APTT (21-34) SECONDS Sodium (132-148) mmol/L Potassium (3.6-5.2) mmol/L Chloride (98-107) mmol/L Carbon Dioxide (22-30) mmol/L Anion Gap (10-20) BUN (9-20) mg/dL Creatinine (0.8-1.5) mg/dL Est GFR ( Amer) Est GFR (Non-Af Amer) POC Glucose (mg/dL) 228 H (65-110) mg/dL Random Glucose (75-110) mg/dL Calcium (8.6-10.4) mg/dl Phosphorus (2.5-4.5) mg/dL Magnesium (1.6-2.3) mg/dL Total Bilirubin (0.2-1.3) mg/dL AST (17-59) U/L ALT (21-72) U/L Alkaline Phosphatase (38-126) U/L Total Creatine Kinase 108 (55-170) U/L CK-MB (Mass) 2.88 (0.0-3.38) ng/mL Troponin I 2.9800 H* (0.00-0.120) ng/mL Total Protein (6.3-8.3) g/dL Albumin (3.5-5.0) g/dL Globulin (2.2-3.9) gm/dL Albumin/Globulin Ratio (1.0-2.1) Vancomycin Trough (5.0-10.0) ug/mL Hepatitis A IgM Ab (NEGATIVE) Hep Bs Antigen (NEGATIVE) Hep B Core IgM Ab (NEGATIVE) Hepatitis C Antibody (NEGATIVE) HIV 1&2 Antibody Screen (NEGATIVE) Influenza Typ A,B (EIA) (NEGATIVE) H.influenzae Type B Ag Negative (NEGATIVE) Ur L.pneumophila Ag Negative (NEGATIVE) N.meningitidis ACY/W135 Negative (NEGATIVE) N.meningi B/E.coli K1 Ag Negative (NEGATIVE) Group B Strep Antigen Negative (NEGATIVE) S. pneumoniae Antigen Negative (NEGATIVE) 05/14/18 05/14/18 05/14/18 Range/Units 09:00 07:27 05:47 WBC (4.8-10.8) K/uL RBC (4.40-5.90) Mil/uL Hgb (12.0-18.0) g/dL Hct (35.0-51.0) % MCV (80.0-94.0) fL MCH (27.0-31.0) pg MCHC (33.0-37.0) g/dL RDW (11.5-14.5) % Plt Count (130-400) K/uL MPV (7.2-11.7) fL Neut % (Auto) (50.0-75.0) % Lymph % (Auto) (20.0-40.0) % Lucas % (Auto) (0.0-10.0) % Eos % (Auto) (0.0-4.0) % Baso % (Auto) (0.0-2.0) % Neut # (Auto) (1.8-7.0) K/uL Lymph # (Auto) (1.0-4.3) K/uL Lucas # (Auto) (0.0-0.8) K/uL Eos # (Auto) (0.0-0.7) K/uL Baso # (Auto) (0.0-0.2) K/uL APTT (21-34) SECONDS Sodium (132-148) mmol/L Potassium (3.6-5.2) mmol/L Chloride (98-107) mmol/L Carbon Dioxide (22-30) mmol/L Anion Gap (10-20) BUN (9-20) mg/dL Creatinine (0.8-1.5) mg/dL Est GFR ( Amer) Est GFR (Non-Af Amer) POC Glucose (mg/dL) 106 (65-110) mg/dL Random Glucose (75-110) mg/dL Calcium (8.6-10.4) mg/dl Phosphorus (2.5-4.5) mg/dL Magnesium (1.6-2.3) mg/dL Total Bilirubin (0.2-1.3) mg/dL AST (17-59) U/L ALT (21-72) U/L Alkaline Phosphatase (38-126) U/L Total Creatine Kinase (55-170) U/L CK-MB (Mass) (0.0-3.38) ng/mL Troponin I (0.00-0.120) ng/mL Total Protein (6.3-8.3) g/dL Albumin (3.5-5.0) g/dL Globulin (2.2-3.9) gm/dL Albumin/Globulin Ratio (1.0-2.1) Vancomycin Trough (5.0-10.0) ug/mL Hepatitis A IgM Ab (NEGATIVE) Hep Bs Antigen (NEGATIVE) Hep B Core IgM Ab (NEGATIVE) Hepatitis C Antibody (NEGATIVE) HIV 1&2 Antibody Screen Negative (NEGATIVE) Influenza Typ A,B (EIA) Negative for flu a/b (NEGATIVE) H.influenzae Type B Ag (NEGATIVE) Ur L.pneumophila Ag (NEGATIVE) N.meningitidis ACY/W135 (NEGATIVE) N.meningi B/E.coli K1 Ag (NEGATIVE) Group B Strep Antigen (NEGATIVE) S. pneumoniae Antigen (NEGATIVE) 05/14/18 Range/Units 05:47 WBC (4.8-10.8) K/uL RBC (4.40-5.90) Mil/uL Hgb (12.0-18.0) g/dL Hct (35.0-51.0) % MCV (80.0-94.0) fL MCH (27.0-31.0) pg MCHC (33.0-37.0) g/dL RDW (11.5-14.5) % Plt Count (130-400) K/uL MPV (7.2-11.7) fL Neut % (Auto) (50.0-75.0) % Lymph % (Auto) (20.0-40.0) % Lucas % (Auto) (0.0-10.0) % Eos % (Auto) (0.0-4.0) % Baso % (Auto) (0.0-2.0) % Neut # (Auto) (1.8-7.0) K/uL Lymph # (Auto) (1.0-4.3) K/uL Lucas # (Auto) (0.0-0.8) K/uL Eos # (Auto) (0.0-0.7) K/uL Baso # (Auto) (0.0-0.2) K/uL APTT (21-34) SECONDS Sodium (132-148) mmol/L Potassium (3.6-5.2) mmol/L Chloride (98-107) mmol/L Carbon Dioxide (22-30) mmol/L Anion Gap (10-20) BUN (9-20) mg/dL Creatinine (0.8-1.5) mg/dL Est GFR ( Amer) Est GFR (Non-Af Amer) POC Glucose (mg/dL) (65-110) mg/dL Random Glucose (75-110) mg/dL Calcium (8.6-10.4) mg/dl Phosphorus (2.5-4.5) mg/dL Magnesium (1.6-2.3) mg/dL Total Bilirubin (0.2-1.3) mg/dL AST (17-59) U/L ALT (21-72) U/L Alkaline Phosphatase (38-126) U/L Total Creatine Kinase (55-170) U/L CK-MB (Mass) (0.0-3.38) ng/mL Troponin I (0.00-0.120) ng/mL Total Protein (6.3-8.3) g/dL Albumin (3.5-5.0) g/dL Globulin (2.2-3.9) gm/dL Albumin/Globulin Ratio (1.0-2.1) Vancomycin Trough (5.0-10.0) ug/mL Hepatitis A IgM Ab Negative (NEGATIVE) Hep Bs Antigen Negative (NEGATIVE) Hep B Core IgM Ab Negative (NEGATIVE) Hepatitis C Antibody Negative (NEGATIVE) HIV 1&2 Antibody Screen (NEGATIVE) Influenza Typ A,B (EIA) (NEGATIVE) H.influenzae Type B Ag (NEGATIVE) Ur L.pneumophila Ag (NEGATIVE) N.meningitidis ACY/W135 (NEGATIVE) N.meningi B/E.coli K1 Ag (NEGATIVE) Group B Strep Antigen (NEGATIVE) S. pneumoniae Antigen (NEGATIVE) Laboratory Results - last 24 hr 05/14/18 05/14/18 05/14/18 05:47 05:47 07:27 WBC RBC Hgb Hct MCV MCH MCHC RDW Plt Count MPV Neut % (Auto) Lymph % (Auto) Lucas % (Auto) Eos % (Auto) Baso % (Auto) Neut # (Auto) Lymph # (Auto) Lucas # (Auto) Eos # (Auto) Baso # (Auto) APTT Sodium Potassium Chloride Carbon Dioxide Anion Gap BUN Creatinine Est GFR ( Amer) Est GFR (Non-Af Amer) POC Glucose (mg/dL) 106 Random Glucose Calcium Phosphorus Magnesium Total Bilirubin AST ALT Alkaline Phosphatase Total Creatine Kinase CK-MB (Mass) Troponin I Total Protein Albumin Globulin Albumin/Globulin Ratio Vancomycin Trough Hepatitis A IgM Ab Negative Hep Bs Antigen Negative Hep B Core IgM Ab Negative Hepatitis C Antibody Negative HIV 1&2 Antibody Screen Negative Influenza Typ A,B (EIA) H.influenzae Type B Ag Ur L.pneumophila Ag N.meningitidis ACY/W135 N.meningi B/E.coli K1 Ag Group B Strep Antigen S. pneumoniae Antigen 05/14/18 05/14/18 05/14/18 09:00 09:00 09:09 WBC RBC Hgb Hct MCV MCH MCHC RDW Plt Count MPV Neut % (Auto) Lymph % (Auto) Lucas % (Auto) Eos % (Auto) Baso % (Auto) Neut # (Auto) Lymph # (Auto) Lucas # (Auto) Eos # (Auto) Baso # (Auto) APTT Sodium Potassium Chloride Carbon Dioxide Anion Gap BUN Creatinine Est GFR ( Amer) Est GFR (Non-Af Amer) POC Glucose (mg/dL) Random Glucose Calcium Phosphorus Magnesium Total Bilirubin AST ALT Alkaline Phosphatase Total Creatine Kinase 108 CK-MB (Mass) 2.88 Troponin I 2.9800 H* Total Protein Albumin Globulin Albumin/Globulin Ratio Vancomycin Trough Hepatitis A IgM Ab Hep Bs Antigen Hep B Core IgM Ab Hepatitis C Antibody HIV 1&2 Antibody Screen Influenza Typ A,B (EIA) Negative for flu a/b H.influenzae Type B Ag Negative Ur L.pneumophila Ag Negative N.meningitidis ACY/W135 Negative N.meningi B/E.coli K1 Ag Negative Group B Strep Antigen Negative S. pneumoniae Antigen Negative 05/14/18 05/14/18 05/14/18 11:19 16:09 22:02 WBC RBC Hgb Hct MCV MCH MCHC RDW Plt Count MPV Neut % (Auto) Lymph % (Auto) Lucas % (Auto) Eos % (Auto) Baso % (Auto) Neut # (Auto) Lymph # (Auto) Lucas # (Auto) Eos # (Auto) Baso # (Auto) APTT Sodium Potassium Chloride Carbon Dioxide Anion Gap BUN Creatinine Est GFR ( Amer) Est GFR (Non-Af Amer) POC Glucose (mg/dL) 228 H 233 H 145 H Random Glucose Calcium Phosphorus Magnesium Total Bilirubin AST ALT Alkaline Phosphatase Total Creatine Kinase CK-MB (Mass) Troponin I Total Protein Albumin Globulin Albumin/Globulin Ratio Vancomycin Trough Hepatitis A IgM Ab Hep Bs Antigen Hep B Core IgM Ab Hepatitis C Antibody HIV 1&2 Antibody Screen Influenza Typ A,B (EIA) H.influenzae Type B Ag Ur L.pneumophila Ag N.meningitidis ACY/W135 N.meningi B/E.coli K1 Ag Group B Strep Antigen S. pneumoniae Antigen 05/15/18 05/15/18 05/15/18 01:37 06:03 06:05 WBC 14.7 H RBC 4.33 L Hgb 11.4 L Hct 34.6 L MCV 80.1 MCH 26.2 L MCHC 32.8 L RDW 12.8 Plt Count 343 MPV 7.9 Neut % (Auto) 69.7 Lymph % (Auto) 15.6 L Lucas % (Auto) 13.0 H Eos % (Auto) 0.6 Baso % (Auto) 1.1 Neut # (Auto) 10.2 H Lymph # (Auto) 2.3 Lucas # (Auto) 1.9 H Eos # (Auto) 0.1 Baso # (Auto) 0.2 APTT Sodium 131 L Potassium 3.2 L Chloride 95 L Carbon Dioxide 26 Anion Gap 13 BUN 17 Creatinine 0.6 L Est GFR ( Amer) > 60 Est GFR (Non-Af Amer) > 60 POC Glucose (mg/dL) Random Glucose 101 Calcium 8.1 L Phosphorus 2.6 Magnesium 2.2 Total Bilirubin 0.5 AST 29 ALT 24 Alkaline Phosphatase 93 Total Creatine Kinase CK-MB (Mass) Troponin I Total Protein 6.5 Albumin 3.1 L Globulin 3.4 Albumin/Globulin Ratio 0.9 L Vancomycin Trough 6.7 Hepatitis A IgM Ab Hep Bs Antigen Hep B Core IgM Ab Hepatitis C Antibody HIV 1&2 Antibody Screen Influenza Typ A,B (EIA) H.influenzae Type B Ag Ur L.pneumophila Ag N.meningitidis ACY/W135 N.meningi B/E.coli K1 Ag Group B Strep Antigen S. pneumoniae Antigen 05/15/18 06:05 WBC RBC Hgb Hct MCV MCH MCHC RDW Plt Count MPV Neut % (Auto) Lymph % (Auto) Lucas % (Auto) Eos % (Auto) Baso % (Auto) Neut # (Auto) Lymph # (Auto) Lucas # (Auto) Eos # (Auto) Baso # (Auto) APTT 51 H Sodium Potassium Chloride Carbon Dioxide Anion Gap BUN Creatinine Est GFR ( Amer) Est GFR (Non-Af Amer) POC Glucose (mg/dL) Random Glucose Calcium Phosphorus Magnesium Total Bilirubin AST ALT Alkaline Phosphatase Total Creatine Kinase CK-MB (Mass) Troponin I Total Protein Albumin Globulin Albumin/Globulin Ratio Vancomycin Trough Hepatitis A IgM Ab Hep Bs Antigen Hep B Core IgM Ab Hepatitis C Antibody HIV 1&2 Antibody Screen Influenza Typ A,B (EIA) H.influenzae Type B Ag Ur L.pneumophila Ag N.meningitidis ACY/W135 N.meningi B/E.coli K1 Ag Group B Strep Antigen S. pneumoniae Antigen Fingerstick Blood Sugar Results: 145 Critical Care Progress Note - Nutrition Nutrition: Nutrition Category Date Time Status Heart Healthy Diet [DIET] Diets 05/13/18 Breakfast Active Assessment/Plan - Assessment and Plan (Free Text) Assessment: Patient is a 62 yo male w/ PMH of CAD s/p CABG, DM-2, and hyperlipidemia presenting with right groin cellulitis, NSTEMI, and DKA. Plan: Neuro: - AAO X 3 Pulm: Possible pneumonia -CT Abd/pelvis (05/13): Very small bilateral pleural effusion with minimal bilateral lower lobe alveolar opacity representing possibly pneumonia or subsegmental atelectasis. No other acute abnormality. - Zosyn 3.375g IV Q8 (Started on 05/13) - Vancomycin 1g IV Q12 (Started on 05/13) Cardiovascular: NSTEMI - EKG on admission showed ST depressions - Cardiology consulted, Dr. Clark/Reinaldo - Troponin: 11.5-->6.8-->3.0 - ASA 81mg PO QD - Plavix 75mg PO QD - Crestor 20mg PO QD - Nitroglycerin IV 5mg/min - Metoprolol tartrate 50mg PO BID - Recommends cardiac catheterization after infection resolves, as per cardiology - Patient is no a candidate for surgery at this time, as per cardiology CHF - Lasix 40mg PO QD - ProBNP: 1910 - Echo: f/u Heme: Leukocytosis - WBC: 17.9 --> 14.7 - Continue with IV antibiotics - Continue to monitor Renal: Hypokalemia - Potassium: 3.2 - Repleted and will continue to monitor Endo: DKA - Glucose level on admission: 439 - Anion gap: 23--> 15 - Beta-hydroxybutarate: 3.34 - HbA1C: 12.3 - Endocrinology consulted, Dr. Mcmahan - [facility] - Hypoglycemia protocol - Accuchecks ACHS GI: - No acute issues ID: Sepsis - Code sepsis (05/13) - ID consulted, Dr. Packer - Zosyn 3.375g IV Q8 (Started on 05/13) - Vancomycin 1g IV Q12 (Started on 05/13) - WBC: 16.8 --> 17.9 - Wound culture (05/13): No growth to date - Blood culture (05/12): No growth to date Skin Right groin abscess - CT Abd/pelvis (05/13): No evidence of inguinal hernia. Right inguinal cellulitis and vaguely confluent ill-defined subcutaneous masses which may represent lymph nodes or small abscesses. - Surgery consulted, Dr. Hubbard - Possible bedside I & D - Patient is no a candidate for surgery at this time, as per cardiology - ID consulted, Dr. Pakcer - Wound culture (05/13): No growth to date - Fungal smear: no growth - Vancomycin 1g IV Q12 (Started on 05/13) - Zosyn 3.375g IV Q8 (Started on 05/13) - Percocet 5/325mg PO Q6H PRN Prophylaxis: - Pepcid 20mg PO BID - Heparin drip - Lactobacillus Case discussed with Dr. Jimmy Arthur, PGY-1
[2018-05-15] MEDS: (Novolin R) Insulin Human Regular 100 units/ml vial SC SCH ×6 (08:30→22:05)
[2018-05-15] MEDS ORDERED: Potassium Chloride 20 mEq ER Tab PO ONE (08:30)
[2018-05-15] MEDS: Lactobacillus Acidophilus 500 MU Cap PO SCH ×2 (09:22→17:26)
--- NOTE | 2018-05-15 10:34 | CARD ---
APPROVED REPORT Date of service: 05/14/2018 EXAM: Two-dimensional and M-mode echocardiogram with Doppler and color Doppler. Other Information Quality : TDSRhythm : INDICATION Congestive Heart Failure 2D DIMENSIONS IVSd0.9 (0.7-1.1cm)LVDd4.9 (3.9-5.9cm) PWd0.9 (0.7-1.1cm)LA Boynpk52 (18-58mL) LVDs4.4 (2.5-4.0cm)FS (%) 11.7 % LVEF (%)25.3 (>50%)LVEF (Deshpande's)30 % M-Mode DIMENSIONS Left Atrium (MM)4.11 (2.5-4.0cm)IVSd1.03 (0.7-1.1cm) Aortic Root2.98 (2.2-3.7cm)LVDd6.30 (4.0-5.6cm) Aortic Cusp Exc.1.77 (1.5-2.0cm)PWd0.74 (0.7-1.1cm) FS (%) 13 %LVDs5.49 (2.0-3.8cm) LVEF (%)27 (>50%) Mitral Valve MV E [place]067.6cm/sMV A [place]89.4cm/sE/A ratio1.6 TDI Lateral E' Peak V10.29cm/sMedial E' Peak V6.87cm/sE/Lateral E'13.2 E/Medial E'19.7 Tricuspid Valve TR Peak [id number]/sTR Peak Gr.[id number] LEFT VENTRICLE The Left Ventricle is moderately dilated. There is normal left ventricular wall thickness. Left ventricle systolic function is severely impaired. The Ejection Fraction is 25-30%. There is severe global hypokinesis of the left ventricle. The left ventricular diastolic function is normal. Apical echoes consistent with trabeculae are noted. Cannot rule out associated thrombi. Suggest repeat study with DEFINITY contrast. RIGHT VENTRICLE The right ventricle is normal size. There is normal right ventricular wall thickness. Systolic function is severely reduced. ATRIA The left atrium is moderately dilated. The right atrium size is normal. The thickening of interatrial septum suggests lipomatous hypertrophy. AORTIC VALVE The aortic valve is normal in structure. No aortic regurgitation is present. There is no aortic valvular stenosis. MITRAL VALVE The mitral valve is normal in structure. There is no evidence of mitral valve prolapse. There is no mitral valve stenosis. Mitral regurgitation is mild. TRICUSPID VALVE The tricuspid valve is normal in structure. There is mild tricuspid regurgitation. Right ventricular systolic pressure is estimated at 40-50 mmHg. There is mild-moderate pulmonary hypertension. PULMONIC VALVE The pulmonic valve is not well visualized. There is mild pulmonic valvular regurgitation. GREAT VESSELS The aortic root is normal in size. PERICARDIAL EFFUSION There is no significant pericardial effusion. <Conclusion> Left ventricle systolic function is severely impaired. The Ejection Fraction is 25-30%. Apical echoes consistent with trabeculae are noted. Cannot rule out associated thrombi. Suggest repeat study with DEFINITY contrast. No aortic regurgitation is present. Mitral regurgitation is mild. There is mild tricuspid regurgitation. There is mild-moderate pulmonary hypertension. There is mild pulmonic valvular regurgitation.
--- NOTE | 2018-05-15 11:04 | CP.PCM.PN ---
Subjective - Date & Time of Evaluation Date of Evaluation: 05/15/18 Time of Evaluation: 10:58 - Subjective Subjective: General Surgery Progress Note for Dr. Hubbard This 62M was seen and examined this AM at bedside no acute events reported overnight. He reports drainage from his pubic lesion. He denies chest pain or SOB reports diaphoresis. Objective - Vital Signs/Intake and Output Vital Signs (last 24 hours): Temp Pulse Resp BP Pulse Ox 98.6 F 109 H 17 153/78 H 89 L 05/15/18 08:00 05/15/18 10:19 05/15/18 10:19 05/15/18 10:19 05/15/18 10:19 Intake and Output: 05/15/18 05/15/18 06:59 18:59 Intake Total 1335.2 9.6 Output Total 300 400 Balance 1035.2 -390.4 - Medications Medications: Current Medications Acetaminophen (Tylenol 325mg Tab) 650 mg PO Q6 PRN PRN Reason: Pain, Mild (1-3) Aspirin (Aspirin Chewable) 81 mg PO DAILY [facility] Last Admin: 05/15/18 09:22 Dose: 81 mg Clopidogrel Bisulfate (Plavix) 75 mg PO DAILY [facility] Last Admin: 05/15/18 09:23 Dose: 75 mg Dextrose (Dextrose 50% Inj) 0 ml IV STAT PRN; Protocol PRN Reason: Hypoglycemia Protocol Dextrose (Glutose 15) 0 gm PO ONCE PRN; Protocol PRN Reason: Hypoglycemia Protocol Famotidine (Pepcid) 20 mg PO DAILY [facility] Last Admin: 05/15/18 09:22 Dose: 20 mg Furosemide (Lasix) 40 mg IVP DAILY [facility] Last Admin: 05/15/18 10:47 Dose: Not Given Glucagon (Glucagen Diagnostic Kit) 0 mg IM STAT PRN; Protocol PRN Reason: Hypoglycemia Protocol Heparin Sodium/Sodium Chloride (Heparin 42469 Units/250ml 1/2 Normal Saline) 25,000 units in 250 mls @ 7.2 mls/hr IV .Q24H PRN; Protocol PRN Reason: ADJUST RATE PER PROTOCOL Last Admin: 05/15/18 05:46 Dose: 16.1 units/kg/hr, 9.66 mls/hr Vancomycin HCl 1,000 mg/ (Sodium Chloride) 250 mls @ 166.6 mls/hr IVPB Q12H JOSE R; Protocol Last Admin: 05/15/18 02:40 Dose: 166.6 mls/hr Piperacillin Sod/Tazobactam (Sod 3.375 gm/ Sodium Chloride) 100 mls @ 200 mls/hr IVPB Q8H [facility]; Protocol Last Admin: 05/15/18 05:44 Dose: 200 mls/hr Dextrose (Dextrose 5% In Water 1000 Ml) 1,000 mls @ 0 mls/hr IV .Q0M PRN; Protocol PRN Reason: Hypoglycemia Protocol Insulin Human NPH (Novolin N) 14 unit SC [facility] Last Admin: 05/14/18 22:04 Dose: 14 u Insulin Human Regular (Novolin R) 8 unit SC ACBD [facility] Last Admin: 05/15/18 08:32 Dose: 8 units Insulin Human Regular (Novolin R) 0 unit SC ACHS [facility] Last Admin: 05/15/18 08:30 Dose: Not Given Lactobacillus Acidophilus (Bacid Acidophilus) 1 cap PO BID [facility] Last Admin: 05/15/18 09:22 Dose: 1 cap Metoprolol Tartrate (Lopressor) 50 mg PO BID [facility] Last Admin: 05/15/18 09:22 Dose: 50 mg Oxycodone/Acetaminophen (Percocet 5/325 Mg Tab) 1 tab PO Q6H PRN PRN Reason: Pain, moderate (4-7) Stop: 05/16/18 12:03 Last Admin: 05/15/18 10:48 Dose: 1 tab Rosuvastatin Calcium (Crestor) 20 mg PO [facility] Last Admin: 05/14/18 21:30 Dose: 20 mg - Labs Labs: 05/15/18 06:05 05/15/18 06:03 PT 12.8 SECONDS (9.7-12.2) H 05/13/18 01:58 INR 1.2 05/13/18 01:58 APTT 51 SECONDS (21-34) H 05/15/18 06:05 - Constitutional Appears: Non-toxic, No Acute Distress - Head Exam Head Exam: ATRAUMATIC, NORMOCEPHALIC - Eye Exam Eye Exam: EOMI - ENT Exam ENT Exam: Mucous Membranes Moist - Respiratory Exam Respiratory Exam: NORMAL BREATHING PATTERN - Cardiovascular Exam Cardiovascular Exam: +S1, +S2 - GI/Abdominal Exam GI & Abdominal Exam: Soft. absent: Guarding, Rigid, Tenderness - Exam Additional comments: Right pic lesion draining pun from two distinct puncta - Neurological Exam Neurological Exam: Alert, Awake - Psychiatric Exam Psychiatric exam: Normal Affect, Normal Mood - Skin Skin Exam: Dry, Intact Assessment and Plan - Assessment and Plan (Free Text) Assessment: 62 yr old male with right groin cellulitis vs abscess Plan: Continue IV ABX Bedside I&D Continue medical management per primary team D/W Dr. Stevie Wright PGY3
--- NOTE | 2018-05-15 11:52 | CP.PCM.PN ---
Subjective - Date & Time of Evaluation Date of Evaluation: 05/15/18 Time of Evaluation: 08:00 - Subjective Subjective: all cultures neg IV rx in progress Objective - Vital Signs/Intake and Output Vital Signs (last 24 hours): Temp Pulse Resp BP Pulse Ox 98.6 F 95 H 25 H 153/78 H 92 L 05/15/18 08:00 05/15/18 11:00 05/15/18 11:00 05/15/18 10:19 05/15/18 11:00 Intake and Output: 05/15/18 05/15/18 06:59 18:59 Intake Total 1335.2 598.0 Output Total 300 1930 Balance 1035.2 -1332.0 - Medications Medications: Current Medications Acetaminophen (Tylenol 325mg Tab) 650 mg PO Q6 PRN PRN Reason: Pain, Mild (1-3) Aspirin (Aspirin Chewable) 81 mg PO DAILY [facility] Last Admin: 05/15/18 09:22 Dose: 81 mg Clopidogrel Bisulfate (Plavix) 75 mg PO DAILY [facility] Last Admin: 05/15/18 09:23 Dose: 75 mg Dextrose (Dextrose 50% Inj) 0 ml IV STAT PRN; Protocol PRN Reason: Hypoglycemia Protocol Dextrose (Glutose 15) 0 gm PO ONCE PRN; Protocol PRN Reason: Hypoglycemia Protocol Famotidine (Pepcid) 20 mg PO BID [facility] Furosemide (Lasix) 40 mg IVP DAILY [facility] Last Admin: 05/15/18 10:47 Dose: Not Given Glucagon (Glucagen Diagnostic Kit) 0 mg IM STAT PRN; Protocol PRN Reason: Hypoglycemia Protocol Heparin Sodium/Sodium Chloride (Heparin 94906 Units/250ml 1/2 Normal Saline) 25,000 units in 250 mls @ 7.2 mls/hr IV .Q24H PRN; Protocol PRN Reason: ADJUST RATE PER PROTOCOL Last Admin: 05/15/18 05:46 Dose: 16.1 units/kg/hr, 9.66 mls/hr Vancomycin HCl 1,000 mg/ (Sodium Chloride) 250 mls @ 166.6 mls/hr IVPB Q12H JOSE R; Protocol Last Admin: 05/15/18 02:40 Dose: 166.6 mls/hr Piperacillin Sod/Tazobactam (Sod 3.375 gm/ Sodium Chloride) 100 mls @ 200 mls/hr IVPB Q8H JOSE R; Protocol Last Admin: 05/15/18 05:44 Dose: 200 mls/hr Dextrose (Dextrose 5% In Water 1000 Ml) 1,000 mls @ 0 mls/hr IV .Q0M PRN; Protocol PRN Reason: Hypoglycemia Protocol Insulin Human NPH (Novolin N) 14 unit SC [facility] Last Admin: 05/14/18 22:04 Dose: 14 u Insulin Human Regular (Novolin R) 8 unit SC ACBD [facility] Last Admin: 05/15/18 08:32 Dose: 8 units Insulin Human Regular (Novolin R) 0 unit SC ACHS [facility] Last Admin: 05/15/18 08:30 Dose: Not Given Lactobacillus Acidophilus (Bacid Acidophilus) 1 cap PO BID [facility] Last Admin: 05/15/18 09:22 Dose: 1 cap Metoprolol Tartrate (Lopressor) 50 mg PO BID [facility] Last Admin: 05/15/18 09:22 Dose: 50 mg Oxycodone/Acetaminophen (Percocet 5/325 Mg Tab) 1 tab PO Q6H PRN PRN Reason: Pain, moderate (4-7) Stop: 05/16/18 12:03 Last Admin: 05/15/18 10:48 Dose: 1 tab Rosuvastatin Calcium (Crestor) 20 mg PO [facility] Last Admin: 05/14/18 21:30 Dose: 20 mg - Labs Labs: 05/15/18 06:05 05/15/18 06:03 PT 12.8 SECONDS (9.7-12.2) H 05/13/18 01:58 INR 1.2 05/13/18 01:58 APTT 51 SECONDS (21-34) H 05/15/18 06:05 Assessment and Plan (1) Lymphadenitis, acute Status: Acute (2) Cellulitis Status: Acute (3) Hx of CABG Status: Acute (4) Diabetes mellitus Status: Chronic (5) Non-ST elevation (NSTEMI) myocardial infarction Status: Acute
[2018-05-15] MEDS ORDERED: Bupivacaine 0.5% Inj(30mL) IJ ONE (14:22)
--- NOTE | 2018-05-15 18:09 | CP.PCM.PN ---
Subjective - Date & Time of Evaluation Date of Evaluation: 05/15/18 Time of Evaluation: 17:45 - Subjective Subjective: Hospitalist Progress Note Patient was seen and examined at 5:45 PM 05/15/18 ICU Bed 17 Patient is Eleazar speaking but understands rTace Surgery Team planned to do bedside I&D of the Right Groin Cellulitis area but patient refused Lengthy conversation with patient that I&D was needed in order to treat the infection appropriately and that the longer the infection took to treat the longer the delay in getting Cardiac Cath which is recommended by Cardiology but after the groin infection is treated Also explained that he did not need BiPap (which he was on at the time of my exam. I was told by Nurse Alyssa that patient requested it) as he is speaking in full sentences and has been saturating fine. Patient anxious at his care not progressing but explained to him that everything that we did for him is step by step process. He expressed understanding and has agreed to bedside I&D and nursing to notify Surgery Team in morning 05/16/18 Upon ROS: Right Groin pain has improved since admission Cough that is dry that comes occasionally Dry mouth NO N/V NO abdominal pain NO chest pain NO SOB NO burning/pain with urination NO lightheadedness/dizziness Blurriness of vision with the left worse than the right for the past 20 to 30 days now NO new changes in hearing NO paresthesias General: AAO x 3, NAD HEENT: NCA, EOMI, PERRLA, NO cervical/submandibular/supraclavicular lymphadenopathy, NO pharyngeal erythema/exudate, NO thyrogmegaly, Dry oral mucosa and nasal turbinates Cardio: NS1 and NS2, NO M/R/G but interference from breath sounds Resp: Bilateral Mid to Lower lung field inspiratory crackles GI: BSx4, SOFT, NT, ND, NO HSM, NO guarding/rebound tenderness Ext: Pulses are strong and equal bilateral UE and LE, NO edema, Capillary Refill is 2 seconds bilateral UE and LE Neuro: CN II through XII are grossly intact Skin: Right Groin area there is of hardness (roughly 6 cm) with central circular area (roughly 2 to 3 cm) that is erythematous and raised with central camara all of which is slightly tender to the touch Assessements: 1). Sepsis Secondary to Right Groin Cellulitis 2). Possible LLL Pneumonia 3). NSTEMI 4). HFrEF (Systolic HF) 5). Possible Apical Heart Thrombi 4). Uncontrolled DM 2 5). Hx HLD Continue Vanco and Zosyn for the Right Groin Cellulitis. F/U Wound Cultures. Patient has now agreed to the bedside I&D F/U Vancomycin Trough 05/16/18 at 1:30 PM There is possible Left Lobe Pneumonia as seen on CT Abdomen/Pelvis: continue the Vanco and Zosyn. Urine Legionella, Urine Strep pnumoniae, Mycoplasma IgG, IgM, Rapid Influenza are ALL negative NSTEMI: continue Heparin Drip. Dr. Najera following: Cardiac Cath once right groin infection resolves. Continue Heparin Drip. Crestor 20 mg PO 1x/day, ASA 81 mg PO 1x/day, Plavix 75 mg PO 1x/day,Metoprolol 50 mg PO BID HFrEF: Echocardiogram shows EF estimated at 25-30% with LVSF severely impaired. Metoprolol 50 mg PO BID, Lasix 40 mg IV 1x/day, and Lisinopril 5 mg PO 1x/day Apical Heart Possible Thrombi: as seen on Echo. Patient already on Heparin Drip. Will follow up with Cardiology Uncontrolled DM 2: patient stated that he has not taken any of his medications for months now. Started on NPH Insulin 14 units HS and Regular Insulin 8 ACBD HLD: Crestor 20 mg PO 1x/day Jamaal Weir D.O. Objective - Vital Signs/Intake and Output Vital Signs (last 24 hours): Temp Pulse Resp BP Pulse Ox 98.2 F 103 H 33 H 150/72 91 L 05/15/18 16:00 05/15/18 17:00 05/15/18 17:00 05/15/18 16:19 05/15/18 17:00 Intake and Output: 05/15/18 05/15/18 06:59 18:59 Intake Total 1335.2 655.6 Output Total 300 1930 Balance 1035.2 -1274.4 - Medications Medications: Current Medications Acetaminophen (Tylenol 325mg Tab) 650 mg PO Q6 PRN PRN Reason: Pain, Mild (1-3) Albuterol/Ipratropium (Duoneb 3 Mg/0.5 Mg (3 Ml) Ud) 3 ml INH RQ6 JOSE R Aspirin (Aspirin Chewable) 81 mg PO DAILY [facility] Last Admin: 05/15/18 09:22 Dose: 81 mg Clopidogrel Bisulfate (Plavix) 75 mg PO DAILY [facility] Last Admin: 05/15/18 09:23 Dose: 75 mg Dextrose (Dextrose 50% Inj) 0 ml IV STAT PRN; Protocol PRN Reason: Hypoglycemia Protocol Dextrose (Glutose 15) 0 gm PO ONCE PRN; Protocol PRN Reason: Hypoglycemia Protocol Famotidine (Pepcid) 20 mg PO BID [facility] Last Admin: 05/15/18 17:26 Dose: 20 mg Furosemide (Lasix) 40 mg IVP DAILY [facility] Last Admin: 05/15/18 10:47 Dose: Not Given Glucagon (Glucagen Diagnostic Kit) 0 mg IM STAT PRN; Protocol PRN Reason: Hypoglycemia Protocol Heparin Sodium/Sodium Chloride (Heparin 89132 Units/250ml 1/2 Normal Saline) 25,000 units in 250 mls @ 7.2 mls/hr IV .Q24H PRN; Protocol PRN Reason: ADJUST RATE PER PROTOCOL Last Admin: 05/15/18 05:46 Dose: 16.1 units/kg/hr, 9.66 mls/hr Vancomycin HCl 1,000 mg/ (Sodium Chloride) 250 mls @ 166.6 mls/hr IVPB Q12H [facility]; Protocol Last Admin: 05/15/18 17:25 Dose: 166.6 mls/hr Piperacillin Sod/Tazobactam (Sod 3.375 gm/ Sodium Chloride) 100 mls @ 200 mls/hr IVPB Q8H JOSE R; Protocol Last Admin: 05/15/18 17:24 Dose: 200 mls/hr Dextrose (Dextrose 5% In Water 1000 Ml) 1,000 mls @ 0 mls/hr IV .Q0M PRN; Protocol PRN Reason: Hypoglycemia Protocol Insulin Human NPH (Novolin N) 14 unit SC HS [facility] Last Admin: 05/14/18 22:04 Dose: 14 u Insulin Human Regular (Novolin R) 8 unit SC ACBD [facility] Last Admin: 05/15/18 17:26 Dose: 88 units Insulin Human Regular (Novolin R) 0 unit SC ACHS [facility] Last Admin: 05/15/18 17:27 Dose: Not Given Lactobacillus Acidophilus (Bacid Acidophilus) 1 cap PO BID [facility] Last Admin: 05/15/18 17:26 Dose: 1 cap Metoprolol Tartrate (Lopressor) 50 mg PO BID [facility] Last Admin: 05/15/18 17:25 Dose: 50 mg Oxycodone/Acetaminophen (Percocet 5/325 Mg Tab) 1 tab PO Q6H PRN PRN Reason: Pain, moderate (4-7) Stop: 05/16/18 12:03 Last Admin: 05/15/18 10:48 Dose: 1 tab Rosuvastatin Calcium (Crestor) 20 mg PO HS [facility] Last Admin: 05/14/18 21:30 Dose: 20 mg - Labs Labs: 05/15/18 06:05 05/15/18 06:03 PT 12.8 SECONDS (9.7-12.2) H 05/13/18 01:58 INR 1.2 05/13/18 01:58 APTT 51 SECONDS (21-34) H 05/15/18 06:05
[2018-05-15] MEDS ORDERED: Magnesium Hydroxide Susp 30 ml UD PO ONE ×2 (18:27→20:00)
--- NOTE | 2018-05-15 19:31 | PN ---
DATE: 05/15/2018 ENDOCRINOLOGY FOLLOWUP NOTE LOCATION: ICU room 17. This is a 62-year-old male, presenting here with lower extremity cellulitis and currently receiving IV antibiotics management and is also being followed closely for metabolic management. His glycemic levels are remarkably improved as noted overnight with glucose levels ranging from 100 to 176 mg/dL. His latest chemistries showed a BUN of 17, sodium 131, potassium 3.2, chloride 95, CO2 of 26, glucose 101, and creatinine 0.6. So at this time, we will continue the same basal and premix insulin regimen as ordered with regular insulin given as 8 units b.i.d. before meals as ordered. We will continue the NPH given as 14 units subcu at bedtime daily as given. We will obtain serial chemistries and supplement accordingly as needed. We will follow. Yeni Mcmahan MD
[2018-05-15] MEDS: (Novolin N) Insulin Human Isophane (NPH) 100 u/ml 10 ml vial SC SCH (22:04)
[2018-05-15] MEDS: Albuterol-Ipratrop 3 mg / 0.5 (3 ml) UD INH SCH (22:10)
[2018-05-16] MEDS: Oxycodone/Acetaminophen 5/325 mg Tab PO PRN ×2 (02:00→08:38)
[2018-05-16] MEDS: Albuterol-Ipratrop 3 mg / 0.5 (3 ml) UD INH SCH (02:49)
[2018-05-16 04:13] VITALS: TEMP 98
[2018-05-16] MEDS: Piperacillin/Tazobact 3.375 GM in Sodium Chloride 100 ML IVPB SCH (05:00)
[2018-05-16 05:55] LABS: BASO # 0.1 K/uL (0.0-0.2); BASO % 0.4 % (0.0-2.0); EOS # 0.2 K/uL (0.0-0.7); HEMOGLOBIN 12.1 g/dL (12.0-18.0); LYMPH # 2.3 K/uL (1.0-4.3); LYMPH % 14.3 % (20.0-40.0); MEAN CELL VOLUME 79.3 fL (80.0-94.0); MEAN CORPUSCULAR HEMOGLOBIN 26.3 pg (27.0-31.0); MEAN CORPUSCULAR HGB CONC 33.2 g/dL (33.0-37.0); MEAN PLATELET VOLUME 8.2 fL (7.2-11.7); MONO # 1.9 K/uL (0.0-0.8); MONO % 11.9 % (0.0-10.0); NEUT # 11.4 K/uL (1.8-7.0); NEUT % 72.4 % (50.0-75.0); RBC 4.59 Mil/uL (4.40-5.90); RED CELL DISTRIBUTION WIDTH 12.9 % (11.5-14.5); WHITE BLOOD COUNT 15.8 K/uL (4.8-10.8)
[2018-05-16 06:21] LABS: ALB/GLOB RATIO 0.9 (1.0-2.1); ALBUMIN 3.7 g/dL (3.5-5.0); ALT/SGPT 21 U/L (21-72); AST/SGOT 53 U/L (17-59); BLOOD UREA NITROGEN 13 mg/dL (9-20); GFR NON-AFRICAN AMERICAN > 60
[2018-05-16] MEDS: (Novolin R) Insulin Human Regular 100 units/ml vial SC SCH ×2 (08:38→08:39)
--- NOTE | 2018-05-16 08:58 | CP.CCUPN ---
CCU Subjective - Physician Review Subjective (Free Text): 05/16/18 12:10 Patient left AMA. Critical Care Time Spent (in minutes): 35 CCU Objective - Vital Signs / Intake & Output Vital Signs (Last 4 hours): Vital Signs Pulse Resp BP Pulse Ox 05/16/18 07:15 97 H 05/16/18 07:00 97 H 17 86 L 05/16/18 06:20 137/61 05/16/18 05:19 151/73 H Intake and Output (Last 8hrs): Intake & Output 05/15/18 05/16/18 05/16/18 22:59 06:59 14:59 Intake Total 676.8 903.8 10.8 Output Total 400 Balance 676.8 503.8 10.8 Weight 130 lb 1.164 oz Intake: IV 227 Intake, IV Amount 526.8 426.8 10.8 Left Wrist 76.8 76.8 10.8 Right Antecubital 350 Right Forearm 100 350 Oral 150 250 Output: Urine 400 Urine, Voided 400 - Physical Exam Head: Positive for: Atraumatic, Normocephalic Pupils: Positive for: PERRL Extroacular Muscles: Positive for: EOMI Conjunctiva: Positive for: Normal Mouth: Positive for: Dry Respiratory/Chest: Positive for: Rhonchi, Tachypneic, Other (Inspiratory crackles heard bilaterally). Negative for: Clear to Auscultation, Respiratory Distress, Accessory Muscle Use, Wheezes, Rales, Retracting Cardiovascular: Positive for: Regular Rate and Rhythm, Normal S1, S2. Negative for: Murmurs, Rub, Gallop Abdomen: Positive for: Normal Bowel Sounds. Negative for: Tenderness, Distention, Peritoneal Signs, Guarding Upper Extremity: Positive for: Normal Inspection Lower Extremity: Positive for: Normal Inspection Neurological: Positive for: GCS=15, CN II-XII Intact Skin: Positive for: Abscess (Right Groin area with induration ~ 6 cm, with central circular area (roughly 2 to 3 cm) that is erythematous and raised with central camara all of which is slightly tender to the touch) - Medications Active Medications: Active Medications Generic Name Dose Route Start Last Admin Trade Name Freq PRN Reason Stop Dose Admin Acetaminophen 650 mg 05/13/18 10:08 Tylenol 325mg Tab PO Q6 PRN Pain, Mild (1-3) Albuterol/Ipratropium 3 ml 05/15/18 20:00 05/16/18 02:49 Duoneb 3 Mg/0.5 Mg (3 Ml) Ud INH 3 ml RQ6 JOSE R Administration Aspirin 81 mg 05/13/18 10:00 05/15/18 09:22 Aspirin Chewable PO 81 mg DAILY JOSE R Administration Clopidogrel Bisulfate 75 mg 05/13/18 10:00 05/15/18 09:23 Plavix PO 75 mg DAILY JOSE R Administration Dextrose 0 ml 05/14/18 08:16 Dextrose 50% Inj IV STAT PRN Hypoglycemia Protocol Protocol Dextrose 0 gm 05/14/18 08:16 Glutose 15 PO ONCE PRN Hypoglycemia Protocol Protocol Famotidine 20 mg 05/15/18 18:00 05/15/18 17:26 Pepcid PO 20 mg BID JOSE R Administration Furosemide 40 mg 05/15/18 10:45 05/15/18 10:47 Lasix IVP Not Given DAILY JOSE R Glucagon 0 mg 05/14/18 08:16 Glucagen Diagnostic Kit IM STAT PRN Hypoglycemia Protocol Protocol Heparin Sodium/Sodium Chloride 25,000 units in 250 mls @ 7.2 mls/hr 05/12/18 22:47 05/16/18 06:56 Heparin 27317 Units/250ml 1/2 Normal Saline IV 18 units/kg/hr .Q24H PRN 10.8 mls/hr ADJUST RATE PER PROTOCOL Titration Protocol 12 UNITS/KG/HR Vancomycin HCl 1,000 mg/ 250 mls @ 166.6 mls/hr 05/13/18 14:00 05/16/18 01:59 Sodium Chloride IVPB 166.6 mls/hr Q12H JOSE R Administration Protocol Piperacillin Sod/Tazobactam 100 mls @ 200 mls/hr 05/13/18 14:00 05/16/18 05:00 Sod 3.375 gm/ Sodium Chloride IVPB 200 mls/hr Q8H JOSE R Administration Protocol Dextrose 1,000 mls @ 0 mls/hr 05/14/18 08:16 Dextrose 5% In Water 1000 Ml IV .Q0M PRN Hypoglycemia Protocol Protocol Per Protocol Insulin Human NPH 14 unit 05/13/18 22:00 05/15/18 22:04 Novolin N SC 14 u HS JOSE R Administration Insulin Human Regular 8 unit 05/13/18 16:30 05/16/18 08:38 Novolin R SC 8 units ACBD JOSE R Administration Insulin Human Regular 0 unit 05/13/18 16:30 05/16/18 08:39 Novolin R SC Not Given ACHS JOSE R Lactobacillus Acidophilus 1 cap 05/14/18 10:00 05/15/18 17:26 Bacid Acidophilus PO 1 cap BID JOSE R Administration Lisinopril 5 mg 05/15/18 18:30 05/15/18 22:04 Zestril PO 5 mg DAILY JOSE R Administration Metoprolol Tartrate 50 mg 05/14/18 18:00 05/15/18 17:25 Lopressor PO 50 mg BID JOSE R Administration Oxycodone/Acetaminophen 1 tab 05/13/18 12:02 05/16/18 08:38 Percocet 5/325 Mg Tab PO 05/16/18 12:03 1 tab Q6H PRN Administration Pain, moderate (4-7) Rosuvastatin Calcium 20 mg 05/12/18 23:45 05/15/18 22:04 Crestor PO 20 mg HS JOSE R Administration - Patient Studies Lab Studies: Microbiology Studies 05/12/18 21:30 Blood Culture - Preliminary Blood NO GROWTH AFTER 3 DAYS 05/15/18 08:01 Gram Stain - Final Groin 05/13/18 15:18 Mycobacterial Culture - Preliminary Other: Please Indicate 05/13/18 15:18 Fungal Smear - Final Groin Lab Studies 05/16/18 05/16/18 05/16/18 Range/Units 05:42 05:42 05:42 WBC 15.8 H (4.8-10.8) K/uL RBC 4.59 (4.40-5.90) Mil/uL Hgb 12.1 (12.0-18.0) g/dL Hct 36.4 (35.0-51.0) % MCV 79.3 L (80.0-94.0) fL MCH 26.3 L (27.0-31.0) pg MCHC 33.2 (33.0-37.0) g/dL RDW 12.9 (11.5-14.5) % Plt Count 418 H (130-400) K/uL MPV 8.2 (7.2-11.7) fL Neut % (Auto) 72.4 (50.0-75.0) % Lymph % (Auto) 14.3 L (20.0-40.0) % [place] % (Auto) 11.9 H (0.0-10.0) % Eos % (Auto) 1.0 (0.0-4.0) % Baso % (Auto) 0.4 (0.0-2.0) % Neut # (Auto) 11.4 H (1.8-7.0) K/uL Lymph # (Auto) 2.3 (1.0-4.3) K/uL [place] # (Auto) 1.9 H (0.0-0.8) K/uL Eos # (Auto) 0.2 (0.0-0.7) K/uL Baso # (Auto) 0.1 (0.0-0.2) K/uL APTT 43 H D (21-34) SECONDS Sodium 130 L (132-148) mmol/L Potassium 4.6 (3.6-5.2) mmol/L Chloride 92 L (98-107) mmol/L Carbon Dioxide 28 (22-30) mmol/L Anion Gap 15 (10-20) BUN 13 (9-20) mg/dL Creatinine 0.5 L (0.8-1.5) mg/dL Est GFR ( Amer) > 60 Est GFR (Non-Af Amer) > 60 POC Glucose (mg/dL) (65-110) mg/dL Random Glucose 171 H (75-110) mg/dL Calcium 8.0 L (8.6-10.4) mg/dl Phosphorus 2.2 L (2.5-4.5) mg/dL Magnesium 2.2 (1.6-2.3) mg/dL Total Bilirubin 1.0 (0.2-1.3) mg/dL AST 53 (17-59) U/L ALT 21 (21-72) U/L Alkaline Phosphatase 136 H D (38-126) U/L Total Protein 7.5 (6.3-8.3) g/dL Albumin 3.7 (3.5-5.0) g/dL Globulin 3.9 (2.2-3.9) gm/dL Albumin/Globulin Ratio 0.9 L (1.0-2.1) 11/27/18 11/27/18 11/27/18 Range/Units 22:05 16:25 12:05 WBC (4.8-10.8) K/uL RBC (4.40-5.90) Mil/uL Hgb (12.0-18.0) g/dL Hct (35.0-51.0) % MCV (80.0-94.0) fL MCH (27.0-31.0) pg MCHC (33.0-37.0) g/dL RDW (11.5-14.5) % Plt Count (130-400) K/uL MPV (7.2-11.7) fL Neut % (Auto) (50.0-75.0) % Lymph % (Auto) (20.0-40.0) % [place] % (Auto) (0.0-10.0) % Eos % (Auto) (0.0-4.0) % Baso % (Auto) (0.0-2.0) % Neut # (Auto) (1.8-7.0) K/uL Lymph # (Auto) (1.0-4.3) K/uL [place] # (Auto) (0.0-0.8) K/uL Eos # (Auto) (0.0-0.7) K/uL Baso # (Auto) (0.0-0.2) K/uL APTT (21-34) SECONDS Sodium (132-148) mmol/L Potassium (3.6-5.2) mmol/L Chloride (98-107) mmol/L Carbon Dioxide (22-30) mmol/L Anion Gap (10-20) BUN (9-20) mg/dL Creatinine (0.8-1.5) mg/dL Est GFR ( Amer) Est GFR (Non-Af Amer) POC Glucose (mg/dL) 210 H 246 H 176 H (65-110) mg/dL Random Glucose (75-110) mg/dL Calcium (8.6-10.4) mg/dl Phosphorus (2.5-4.5) mg/dL Magnesium (1.6-2.3) mg/dL Total Bilirubin (0.2-1.3) mg/dL AST (17-59) U/L ALT (21-72) U/L Alkaline Phosphatase (38-126) U/L Total Protein (6.3-8.3) g/dL Albumin (3.5-5.0) g/dL Globulin (2.2-3.9) gm/dL Albumin/Globulin Ratio (1.0-2.1) 05/15/18 Range/Units 07:52 WBC (4.8-10.8) K/uL RBC (4.40-5.90) Mil/uL Hgb (12.0-18.0) g/dL Hct (35.0-51.0) % MCV (80.0-94.0) fL MCH (27.0-31.0) pg MCHC (33.0-37.0) g/dL RDW (11.5-14.5) % Plt Count (130-400) K/uL MPV (7.2-11.7) fL Neut % (Auto) (50.0-75.0) % Lymph % (Auto) (20.0-40.0) % [place] % (Auto) (0.0-10.0) % Eos % (Auto) (0.0-4.0) % Baso % (Auto) (0.0-2.0) % Neut # (Auto) (1.8-7.0) K/uL Lymph # (Auto) (1.0-4.3) K/uL [place] # (Auto) (0.0-0.8) K/uL Eos # (Auto) (0.0-0.7) K/uL Baso # (Auto) (0.0-0.2) K/uL APTT (21-34) SECONDS Sodium (132-148) mmol/L Potassium (3.6-5.2) mmol/L Chloride (98-107) mmol/L Carbon Dioxide (22-30) mmol/L Anion Gap (10-20) BUN (9-20) mg/dL Creatinine (0.8-1.5) mg/dL Est GFR ( Amer) Est GFR (Non-Af Amer) POC Glucose (mg/dL) 100 (65-110) mg/dL Random Glucose (75-110) mg/dL Calcium (8.6-10.4) mg/dl Phosphorus (2.5-4.5) mg/dL Magnesium (1.6-2.3) mg/dL Total Bilirubin (0.2-1.3) mg/dL AST (17-59) U/L ALT (21-72) U/L Alkaline Phosphatase (38-126) U/L Total Protein (6.3-8.3) g/dL Albumin (3.5-5.0) g/dL Globulin (2.2-3.9) gm/dL Albumin/Globulin Ratio (1.0-2.1) Laboratory Results - last 24 hr 05/15/18 05/15/18 05/15/18 07:52 12:05 16:25 WBC RBC Hgb Hct MCV MCH MCHC RDW Plt Count MPV Neut % (Auto) Lymph % (Auto) [place] % (Auto) Eos % (Auto) Baso % (Auto) Neut # (Auto) Lymph # (Auto) [place] # (Auto) Eos # (Auto) Baso # (Auto) APTT Sodium Potassium Chloride Carbon Dioxide Anion Gap BUN Creatinine Est GFR ( Amer) Est GFR (Non-Af Amer) POC Glucose (mg/dL) 100 176 H 246 H Random Glucose Calcium Phosphorus Magnesium Total Bilirubin AST ALT Alkaline Phosphatase Total Protein Albumin Globulin Albumin/Globulin Ratio 05/15/18 05/16/18 05/16/18 22:05 05:42 05:42 WBC 15.8 H RBC 4.59 Hgb 12.1 Hct 36.4 MCV 79.3 L MCH 26.3 L MCHC 33.2 RDW 12.9 Plt Count 418 H MPV 8.2 Neut % (Auto) 72.4 Lymph % (Auto) 14.3 L [place] % (Auto) 11.9 H Eos % (Auto) 1.0 Baso % (Auto) 0.4 Neut # (Auto) 11.4 H Lymph # (Auto) 2.3 [place] # (Auto) 1.9 H Eos # (Auto) 0.2 Baso # (Auto) 0.1 APTT Sodium 130 L Potassium 4.6 Chloride 92 L Carbon Dioxide 28 Anion Gap 15 BUN 13 Creatinine 0.5 L Est GFR ( Amer) > 60 Est GFR (Non-Af Amer) > 60 POC Glucose (mg/dL) 210 H Random Glucose 171 H Calcium 8.0 L Phosphorus 2.2 L Magnesium 2.2 Total Bilirubin 1.0 AST 53 ALT 21 Alkaline Phosphatase 136 H D Total Protein 7.5 Albumin 3.7 Globulin 3.9 Albumin/Globulin Ratio 0.9 L 05/16/18 05:42 WBC RBC Hgb Hct MCV MCH MCHC RDW Plt Count MPV Neut % (Auto) Lymph % (Auto) [place] % (Auto) Eos % (Auto) Baso % (Auto) Neut # (Auto) Lymph # (Auto) [place] # (Auto) Eos # (Auto) Baso # (Auto) APTT 43 H D Sodium Potassium Chloride Carbon Dioxide Anion Gap BUN Creatinine Est GFR ( Amer) Est GFR (Non-Af Amer) POC Glucose (mg/dL) Random Glucose Calcium Phosphorus Magnesium Total Bilirubin AST ALT Alkaline Phosphatase Total Protein Albumin Globulin Albumin/Globulin Ratio Fingerstick Blood Sugar Results: 210 Critical Care Progress Note - Nutrition Nutrition: Nutrition Category Date Time Status Heart Healthy Diet [DIET] Diets 05/13/18 Breakfast Active Assessment/Plan - Assessment and Plan (Free Text) Assessment: Patient is a 62 yo male w/ PMH of CAD s/p CABG, DM-2, and hyperlipidemia presenting with right groin cellulitis, NSTEMI, and DKA. Plan: Neuro: - AAO X 3 Pulm: Possible pneumonia -CT Abd/pelvis (05/13): Very small bilateral pleural effusion with minimal bilateral lower lobe alveolar opacity representing possibly pneumonia or subsegmental atelectasis. No other acute abnormality. - Zosyn 3.375g IV Q8 (Started on 05/13) - Vancomycin 1g IV Q12 (Started on 05/13) Cardiovascular: NSTEMI - EKG on admission showed ST depressions - Cardiology consulted, Dr. Clark/Reinaldo - Troponin: 11.5-->6.8-->3.0 - ASA 81mg PO QD - Plavix 75mg PO QD - Crestor 20mg PO QD - Nitroglycerin IV 5mg/min - Metoprolol tartrate 50mg PO BID - Recommends cardiac catheterization after infection resolves, as per cardiology - Patient is no a candidate for surgery at this time, as per cardiology CHF - Lasix 40mg PO QD - ProBNP: 0 - Echo: f/u Heme: Leukocytosis - WBC: 17.9 --> 14.7 - Continue with IV antibiotics - Continue to monitor Renal: Hypokalemia - Potassium: 3.2 - Repleted and will continue to monitor Endo: DKA - Glucose level on admission: 439 - Anion gap: 23--> 15 - Beta-hydroxybutarate: 3.34 - HbA1C: 12.3 - Endocrinology consulted, Dr. Mcmahan - ISS - Hypoglycemia protocol - Accuchecks ACHS GI: - No acute issues ID: Sepsis - Code sepsis (05/13) - ID consulted, Dr. Packer - Zosyn 3.375g IV Q8 (Started on 05/13) - Vancomycin 1g IV Q12 (Started on 05/13) - WBC: 16.8 --> 17.9 - Wound culture (05/13): No growth to date - Blood culture (05/12): No growth to date Skin Right groin abscess - CT Abd/pelvis (05/13): No evidence of inguinal hernia. Right inguinal cellulitis and vaguely confluent ill-defined subcutaneous masses which may represent lymph nodes or small abscesses. - Surgery consulted, Dr. Hubbard - Possible bedside I & D - Patient is no a candidate for surgery at this time, as per cardiology - ID consulted, Dr. Packer - Wound culture (05/13): No growth to date - Fungal smear: no growth - Vancomycin 1g IV Q12 (Started on 05/13) - Zosyn 3.375g IV Q8 (Started on 05/13) - Percocet 5/325mg PO Q6H PRN Prophylaxis: - Pepcid 20mg PO BID - Heparin drip - Lactobacillus Case discussed with Dr. Jimmy Arthur, PGY-1
[2018-05-16 09:08] VITALS: PULSE 102; RESP 22; O2SAT 90
--- NOTE | 2018-05-16 09:30 | CP.PCM.DIS ---
Provider - Provider Date of Admission: 05/12/18 22:36 Attending physician: Gino Rivera MD Consults: ICU cardiology surgery endocrinology ID Time Spent in preparation of Discharge (in minutes): 60 Diagnosis - Discharge Diagnosis (1) Sepsis Status: Acute Priority: High (2) NSTEMI (non-ST elevated myocardial infarction) Status: Acute Priority: High (3) CHF (congestive heart failure) Status: Chronic Priority: Medium (4) T2DM (type 2 diabetes mellitus) Status: Chronic Priority: Medium Hospital Course - Lab Results Lab Results: Micro Results 05/12/18 21:30 Blood Blood Culture - Preliminary NO GROWTH AFTER 3 DAYS 05/15/18 08:01 Groin Gram Stain - Final 05/13/18 15:18 Other: Please Indicate Mycobacterial Culture - Preliminary 05/13/18 15:18 Groin Fungal Smear - Final 05/13/18 08:10 Urine,Clean Catch Urine Culture - Final No Growth (<1,000 CFU/ML) 05/13/18 06:32 Naris MRSA Culture (Admit) - Final MRSA NOT DETECTED 05/13/18 00:19 Abscess - Inguinal Gram Stain - Final Most Recent Lab Values WBC 15.8 K/uL (4.8-10.8) H 05/16/18 05:42 RBC 4.59 Mil/uL (4.40-5.90) 05/16/18 05:42 Hgb 12.1 g/dL (12.0-18.0) 05/16/18 05:42 Hct 36.4 % (35.0-51.0) 05/16/18 05:42 MCV 79.3 fL (80.0-94.0) L 05/16/18 05:42 MCH 26.3 pg (27.0-31.0) L 05/16/18 05:42 MCHC 33.2 g/dL (33.0-37.0) 05/16/18 05:42 RDW 12.9 % (11.5-14.5) 05/16/18 05:42 Plt Count 418 K/uL (130-400) H 05/16/18 05:42 MPV 8.2 fL (7.2-11.7) 05/16/18 05:42 Neut % (Auto) 72.4 % (50.0-75.0) 05/16/18 05:42 Lymph % (Auto) 14.3 % (20.0-40.0) L 05/16/18 05:42 Horry % (Auto) 11.9 % (0.0-10.0) H 05/16/18 05:42 Eos % (Auto) 1.0 % (0.0-4.0) 05/16/18 05:42 Baso % (Auto) 0.4 % (0.0-2.0) 05/16/18 05:42 Neut # (Auto) 11.4 K/uL (1.8-7.0) H 05/16/18 05:42 Lymph # (Auto) 2.3 K/uL (1.0-4.3) 05/16/18 05:42 Horry # (Auto) 1.9 K/uL (0.0-0.8) H 05/16/18 05:42 Eos # (Auto) 0.2 K/uL (0.0-0.7) 05/16/18 05:42 Baso # (Auto) 0.1 K/uL (0.0-0.2) 05/16/18 05:42 PT 12.8 SECONDS (9.7-12.2) H 05/13/18 01:58 INR 1.2 05/13/18 01:58 APTT 43 SECONDS (21-34) H D 05/16/18 05:42 Puncture Site Rr 05/12/18 14:27 pCO2 33 mm/Hg (35-45) L 05/12/18 14:27 pO2 159 mm/Hg (80-100) H 05/12/18 14:27 HCO3 17.0 mmol/L (21-28) L 05/12/18 14:27 ABG pH 7.28 (7.35-7.45) L 05/12/18 14:27 ABG Total CO2 16.5 mmol/L (22-28) L 05/12/18 14:27 ABG O2 Saturation 95.0 % (95-98) 05/12/18 14:27 ABG Base Excess -10.2 mmol/L (-2.0-3.0) L 05/12/18 14:27 Karthik Test Pos 05/12/18 14:27 ABG Potassium 3.2 mmol/L (3.6-5.2) L 05/12/18 14:27 A-a O2 Difference 156.0 mm/Hg 05/12/18 14:27 Respiratory Index 1.0 05/12/18 14:27 Sodium 133.0 mmol/l (132-148) 05/12/18 14:27 Chloride 96.0 mmol/L (98-107) L 05/12/18 14:27 Glucose 590 mg/dl (75-110) H* 05/12/18 14:27 Lactate 2.9 mmol/L (0.7-2.1) H 05/12/18 14:27 Vent Mode Bipap 05/12/18 14:27 FiO2 50.0 % 05/12/18 14:27 Inspiratory BiPAP 05/12/18 14:27 Expiratory BiPAP 10 05/12/18 14:27 Crit Value Called To Denisse call rn 05/12/18 14:27 Crit Value Called By Keya foxpro developer 05/12/18 14:27 Crit Value Read Back Y 05/12/18 14:27 Blood Gas Notified Time 6 05/12/18 14:27 Sodium 130 mmol/L (132-148) L 05/16/18 05:42 Potassium 4.6 mmol/L (3.6-5.2) 05/16/18 05:42 Chloride 92 mmol/L (98-107) L 05/16/18 05:42 Carbon Dioxide 28 mmol/L (22-30) 05/16/18 05:42 Anion Gap 15 (10-20) 05/16/18 05:42 BUN 13 mg/dL (9-20) 05/16/18 05:42 Creatinine 0.5 mg/dL (0.8-1.5) L 05/16/18 05:42 Est GFR ( Amer) > 60 05/16/18 05:42 Est GFR (Non-Af Amer) > 60 05/16/18 05:42 POC Glucose (mg/dL) 210 mg/dL (65-110) H 05/15/18 22:05 Random Glucose 171 mg/dL (75-110) H 05/16/18 05:42 Hemoglobin A1c 12.3 % (4.2-6.5) H 05/13/18 00:37 Lactic Acid 1.0 mmol/L (0.7-2.1) 05/13/18 08:42 Calcium 8.0 mg/dl (8.6-10.4) L 05/16/18 05:42 Phosphorus 2.2 mg/dL (2.5-4.5) L 05/16/18 05:42 Magnesium 2.2 mg/dL (1.6-2.3) 05/16/18 05:42 Total Bilirubin 1.0 mg/dL (0.2-1.3) 05/16/18 05:42 AST 53 U/L (17-59) 05/16/18 05:42 ALT 21 U/L (21-72) 05/16/18 05:42 Alkaline Phosphatase 136 U/L (38-126) H D 05/16/18 05:42 Total Creatine Kinase 108 U/L (55-170) 05/14/18 09:00 CK-MB (Mass) 2.88 ng/mL (0.0-3.38) 05/14/18 09:00 Troponin I 2.9800 ng/mL (0.00-0.120) H* 05/14/18 09:00 NT-Pro-B Natriuret Pep 1910 pg/mL (0-900) H 05/13/18 00:44 Total Protein 7.5 g/dL (6.3-8.3) 05/16/18 05:42 Albumin 3.7 g/dL (3.5-5.0) 05/16/18 05:42 Globulin 3.9 gm/dL (2.2-3.9) 05/16/18 05:42 Albumin/Globulin Ratio 0.9 (1.0-2.1) L 05/16/18 05:42 TSH 3rd Generation 0.76 mIU/L (0.46-4.68) 05/13/18 00:44 Arterial Blood Potassium 3.2 mmol/L (3.6-5.2) L 05/12/18 14:27 Urine Color Straw (YELLOW) 05/13/18 08:10 Urine Clarity Clear (Clear) 05/13/18 08:10 Urine pH 5.0 (5.0-8.0) 05/13/18 08:10 Ur Specific Gattman 1.016 (1.003-1.030) 05/13/18 08:10 Urine Protein Negative mg/dL (NEGATIVE) 05/13/18 08:10 Urine Glucose (UA) 3+ mg/dL (Normal) H 05/13/18 08:10 Urine Ketones 1+ mg/dL (NEGATIVE) H 05/13/18 08:10 Urine Blood 1+ (NEGATIVE) H 05/13/18 08:10 Urine Nitrate Negative (NEGATIVE) 05/13/18 08:10 Urine Bilirubin Negative (NEGATIVE) 05/13/18 08:10 Urine Urobilinogen Normal mg/dL (0.2-1.0) 05/13/18 08:10 Ur Leukocyte Esterase Neg Rajesh/uL (Negative) 05/13/18 08:10 Urine WBC (Auto) 1 /hpf (0-5) 05/13/18 08:10 Urine RBC (Auto) 4 /hpf (0-3) H 05/13/18 08:10 Vancomycin Trough 6.7 ug/mL (5.0-10.0) 05/15/18 01:37 Urine Opiates Screen Negative (NEGATIVE) 05/13/18 08:10 Urine Methadone Screen Negative (NEGATIVE) 05/13/18 08:10 Ur Barbiturates Screen Negative (NEGATIVE) 05/13/18 08:10 Ur Phencyclidine Scrn Negative (NEGATIVE) 05/13/18 08:10 Ur Amphetamines Screen Negative (NEGATIVE) 05/13/18 08:10 U Benzodiazepines Scrn Negative (NEGATIVE) 05/13/18 08:10 U Oth Cocaine Metabols Negative (NEGATIVE) 05/13/18 08:10 U Cannabinoids Screen Negative (NEGATIVE) 05/13/18 08:10 B-Hydroxybutyrate 3.34 mM (0.02-0.27) H 05/13/18 01:57 Hepatitis A IgM Ab Negative (NEGATIVE) 05/14/18 05:47 Hep Bs Antigen Negative (NEGATIVE) 05/14/18 05:47 Hep B Core IgM Ab Negative (NEGATIVE) 05/14/18 05:47 Hepatitis C Antibody Negative (NEGATIVE) 05/14/18 05:47 HIV 1&2 Antibody Screen Negative (NEGATIVE) 05/14/18 05:47 Influenza Typ A,B (EIA) Negative for flu a/b (NEGATIVE) 05/14/18 09:00 H.influenzae Type B Ag Negative (NEGATIVE) 05/14/18 09:09 Ur L.pneumophila Ag Negative (NEGATIVE) 05/14/18 09:09 N.meningitidis ACY/W135 Negative (NEGATIVE) 05/14/18 09:09 N.meningi B/E.coli K1 Ag Negative (NEGATIVE) 05/14/18 09:09 Group B Strep Antigen Negative (NEGATIVE) 05/14/18 09:09 S. pneumoniae Antigen Negative (NEGATIVE) 05/14/18 09:09 - Hospital Course Hospital Course: Patient was seen this morning with attending, Dr. Jamaal Weir. Patient reques johnny to leave AMA. Considerable time was spent explaining diagnoses, prognosis, benefits of treatments, and risks of refusal of treatments and leaving the hospital, including significant risk of . Patient expressed understanding yet still decided to leave against medical advise. patient was given prescription for 14 days of cipro. Please see below for hospital course and assessment and plan. Patient is a 62 yo male w/ PMH CABG, DM, and hyperlipidemia presents to emergency department for one weeks worth of right groin pain. Patient states he has been taken Advil every four hours with no relief. Patient states he has not been taking medications for his diabetes and hyperlipidemia but gave no reason why he stopped other than the pain in his leg. Patient states this has happened in the past on the left groin. Patient describes the pain as a burning pain, constant, and non-radiating. Patient states that he has felt feverish with cough nonproductive but did not check his temperature. During evaluation patient started become more tachypneic and had an episode of vomiting. Patient was coughing during the interview so much that the ED attending started a breathing treatment. Patient became very diaphoretic during the interview requiring ICU consult because there was a concern for PA. Patient started to complain of feeling short of breath, impending doom, continuous cough, feeling nauseous, and very sweaty. Patient climbed off stretcher although told not to and laid on the floor. Patient was encouraged to get back on stretcher but did not until he was assisted. Patient was started on bipap because there of concern of pulmonary edema. Patient admits to cough, fevers, chills, chest discomfort shortness of breath, n/v, lightheadedness, and flatulence. Patient denies constipation/diarrhea, headaches, radiating pain, and dysuria. Surgery Team planned to do bedside I&D of the Right Groin Cellulitis area but patient refused Lengthy conversation with patient that I&D was needed in order to treat the infection appropriately and that the longer the infection took to treat the longer the delay in getting Cardiac Cath which is recommended by Cardiology but after the groin infection is treated Also explained that he did not need BiPap (which he was on at the time of my exam. I was told by Nurse Alyssa that patient requested it) as he is speaking in full sentences and has been saturating fine. Patient anxious at his care not progressing but explained to him that everything that we did for him is step by step process. He expressed understanding and has agreed to bedside I&D and nursing to notify Surgery Team in morning 05/16/18 Upon ROS: Right Groin pain has improved since admission Cough that is dry that comes occasionally Dry mouth NO N/V NO abdominal pain NO chest pain NO SOB NO burning/pain with urination NO lightheadedness/dizziness Blurriness of vision with the left worse than the right for the past 20 to 30 days now NO new changes in hearing NO paresthesias General: AAO x 3, NAD HEENT: NCA, EOMI, PERRLA, NO cervical/submandibular/supraclavicular lymphadenopathy, NO pharyngeal erythema/exudate, NO thyrogmegaly, Dry oral mucosa and nasal turbinates Cardio: NS1 and NS2, NO M/R/G but interference from breath sounds Resp: Bilateral Mid to Lower lung field inspiratory crackles GI: BSx4, SOFT, NT, ND, NO HSM, NO guarding/rebound tenderness Ext: Pulses are strong and equal bilateral UE and LE, NO edema, Capillary Refill is 2 seconds bilateral UE and LE Neuro: CN II through XII are grossly intact Skin: Right Groin area there is of hardness (roughly 6 cm) with central circular area (roughly 2 to 3 cm) that is erythematous and raised with central camara all of which is slightly tender to the touch Assessements: 1). Sepsis Secondary to Right Groin Cellulitis 2). Possible LLL Pneumonia 3). NSTEMI 4). HFrEF (Systolic HF) 5). Possible Apical Heart Thrombi 4). Uncontrolled DM 2 5). Hx HLD Continue Vanco and Zosyn for the Right Groin Cellulitis. F/U Wound Cultures. Patient has now agreed to the bedside I&D F/U Vancomycin Trough 05/16/18 at 1:30 PM There is possible Left Lobe Pneumonia as seen on CT Abdomen/Pelvis: continue the Vanco and Zosyn. Urine Legionella, Urine Strep pnumoniae, Mycoplasma IgG, IgM, Rapid Influenza are ALL negative NSTEMI: continue Heparin Drip. Dr. Najera following: Cardiac Cath once right groin infection resolves. Continue Heparin Drip. Crestor 20 mg PO 1x/day, ASA 81 mg PO 1x/day, Plavix 75 mg PO 1x/day,Metoprolol 50 mg PO BID HFrEF: Echocardiogram shows EF estimated at 25-30% with LVSF severely impaired. Metoprolol 50 mg PO BID, Lasix 40 mg IV 1x/day, and Lisinopril 5 mg PO 1x/day Apical Heart Possible Thrombi: as seen on Echo. Patient already on Heparin Drip. Will follow up with Cardiology Uncontrolled DM 2: patient stated that he has not taken any of his medications for months now. Started on NPH Insulin 14 units HS and Regular Insulin 8 ACBD HLD: Crestor 20 mg PO 1x/day Discharge Exam - Head Exam Head Exam: ATRAUMATIC, NORMAL INSPECTION - Eye Exam Eye Exam: EOMI - Respiratory Exam Respiratory Exam: absent: Respiratory Distress - Neurological Exam Neurological exam: Alert, Oriented x3 Discharge Plan - Discharge Medications Prescriptions: Ciprofloxacin [Cipro] 500 mg PO BID 14 Days tab - Follow Up Plan Condition: CRITICAL Disposition: AGAINST MEDICAL ADVICE
[2018-05-16] MEDS: Lactobacillus Acidophilus 500 MU Cap PO SCH (09:35)
[2018-05-16 09:36] VITALS: BP 135/84
--- NOTE | 2018-05-16 17:57 | CARD ---
APPROVED REPORT Date of service: 05/13/2018 EKG Measurement Heart [id number] <Conclusion> Normal sinus rhythm Septal infarct, age undetermined Prolonged QT Abnormal ECG
== END 2018-05-16 10:00 | disposition left against medical advice (07) | DRG 871 ==
LOC: C.ER 18:42 → C.9E 22:36 → C.6T 23:03 → C.9E 05-13 00:31 → C.9I 05-13 00:43
PROVIDERS: ADMIT Family Medicine; ATTEND Family Medicine
PROC: 5A09457 Assistance with Respiratory Ventilation, 24-96 Consecutive Hours, Continuous Positive Airway Pressure (ICD-10-PCS; principal; 2018-05-12)
DX: A41.9 Sepsis, unspecified organism (principal); I21.4 Non-ST elevation (NSTEMI) myocardial infarction; E11.00 Type 2 diabetes mellitus with hyperosmolarity without nonketotic hyperglycemic-hyperosmolar coma (NKHHC); E11.10 Type 2 diabetes mellitus with ketoacidosis without coma; J96.91 Respiratory failure, unspecified with hypoxia; L03.314 Cellulitis of groin; F17.210 Nicotine dependence, cigarettes, uncomplicated; E78.2 Mixed hyperlipidemia; I11.0 Hypertensive heart disease with heart failure; I34.0 Nonrheumatic mitral (valve) insufficiency; I25.10 Atherosclerotic heart disease of native coronary artery without angina pectoris; J44.9 Chronic obstructive pulmonary disease, unspecified; I50.9 Heart failure, unspecified; Z79.4 Long term (current) use of insulin; Z95.1 Presence of aortocoronary bypass graft

== ENCOUNTER 2018-06-28 02:23 | Emergency (ER) | payer SELFPAY ==
[2018-06-28 02:23] VITALS: PULSE 143
[2018-06-28] MEDS ORDERED: Naproxen 275 mg Tab PO ONE (04:23)
[2018-06-28] MEDS ORDERED: Naproxen 275 mg Tab PO STA (04:23)
--- NOTE | 2018-06-28 04:34 | C.PDOC ---
History Of Present Illness 62 year old male presents to the ER with a complaint of left calf muscle area pain for the past 3 days. Denies injury. Chief Complaint (Nursing): Lower Extremity Problem/Injury History Per: Patient History/Exam Limitations: no limitations Onset/Duration Of Symptoms: Days (3) Recent travel outside of the [place]: No Past Medical History Reviewed: Historical Data, Nursing Documentation, Vital Signs Vital Signs: Last Vital Signs Temp 98.1 F 06/28/18 02:32 Pulse 86 06/28/18 02:32 Resp 22 06/28/18 02:32 BP 152/86 H 06/28/18 02:32 Pulse Ox 98 06/28/18 02:32 - Medical History PMH: Diabetes, HTN, Hypercholesterolemia, Hyperlipidemia Denies: Chronic Kidney Disease Surgical History: CABG - [facility] ASSISTANCE WITH RESPIRATORY VENTILATION, 24-96 HRS, CPAP (05/12/18) Family History: States: Unknown Family Hx - Social History Hx Alcohol Use: No Hx Substance Use: No - Immunization History Hx Tetanus Toxoid Vaccination: No Hx Influenza Vaccination: No Hx Pneumococcal Vaccination: No Review Of Systems Constitutional: Negative for: Fever, Chills Cardiovascular: Negative for: Chest Pain, Palpitations Respiratory: Negative for: Cough, Shortness of Breath Gastrointestinal: Negative for: Nausea, Vomiting Musculoskeletal: Positive for: Other (Left calf muscle area pain) Neurological: Negative for: Weakness, Numbness Physical Exam - Physical Exam Appears: Non-toxic Skin: Normal Color, Warm, Dry Head: Atraumatic, Normacephalic Eye(s): bilateral: Normal Inspection Oral Mucosa: Moist Chest: Symmetrical, No Tenderness Cardiovascular: Rhythm Regular Respiratory: Normal Breath Sounds, No Rales, No Rhonchi, No Wheezing Gastrointestinal/Abdominal: Soft, No Tenderness Extremity: Other (Tenderness to left calf muscle area, no definite swelling) Pulses: Left Dorsalis Pedis: Normal, Right Dorsalis Pedis: Normal Neurological/Psych: Oriented x3, Normal Speech, Normal Motor, Normal Sensation ED Course And Treatment - Laboratory Results Result Diagrams: 06/28/18 04:39 O2 Sat by Pulse Oximetry: 98 (Room air) Pulse Ox Interpretation: Normal Progress Note: Blood work ordered. Flexeril and naproxen administered. Disposition Counseled Patient/Family Regarding: Diagnosis - Disposition Referrals: [facility] [Outside] Disposition: HOME/ ROUTINE Disposition Time: 05:41 Condition: STABLE Prescriptions: Cyclobenzaprine [Cyclobenzaprine HCl] 10 mg PO TIDPC #14 tab Naproxen 375 mg PO Q8 #20 tablet Instructions: Muscle Strain Forms: [facility] (Thai) - POA Present On Arrival: None - Clinical Impression Clinical Impression: Muscle ache of extremity - Scribe Statement The provider has reviewed the documentation as recorded by the Scribe Greyson Agarwal All medical record entries made by the Felibertoibhortensia were at my direction and personally dictated by me. I have reviewed the chart and agree that the record accurately reflects my personal performance of the history, physical exam, medical decision making, and the department course for this patient. I have also personally directed, reviewed, and agree with the discharge instructions and disposition.
[2018-06-28 04:43] LABS: BASO # 0.1 K/uL (0.0-0.2); BASO % 1.5 % (0.0-2.0); EOS # 0.4 K/uL (0.0-0.7); HEMOGLOBIN 12.2 g/dL (12.0-18.0); LYMPH # 3.1 K/uL (1.0-4.3); LYMPH % 38.5 % (20.0-40.0); MEAN CELL VOLUME 81.9 fL (80.0-94.0); MEAN CORPUSCULAR HEMOGLOBIN 26.2 pg (27.0-31.0); MEAN PLATELET VOLUME 7.1 fL (7.2-11.7); MONO # 0.6 K/uL (0.0-0.8); MONO % 7.4 % (0.0-10.0); NEUT # 3.8 K/uL (1.8-7.0); NEUT % 47.6 % (50.0-75.0); RBC 4.64 Mil/uL (4.40-5.90)
[2018-06-28 04:50] LABS: PARTIAL THROMBOPLASTIN TIME 29 SECONDS (21-34); PROTHROMBIN TIME 10.8 SECONDS (9.7-12.2)
[2018-06-28 05:40] LABS: D DIMER < 200 ng/mlDDU (0-243)
[2018-06-28 06:11] VITALS: BP 130/80; PULSE 70; RESP 14; TEMP 98; O2SAT 97
[2018-06-28] MEDS ORDERED: Naproxen 275 mg Tab PO SCH (10:00)
== END 2018-06-28 06:11 | disposition home or self-care (01) ==
LOC: C.ER 02:23
DX: M79.18 Myalgia, other site (principal)